=== PATIENT | female | born 1995 | race Caucasian/White ===

== ENCOUNTER → 2019-12-24 10:29 | Outpatient (CLI) | payer OTHER, SELFPAY ==
[2017-12-17 12:10] VITALS: BMI 31.8
[2019-12-24 12:38] LABS: Erythrocyte Sedimentation Rate 3 mm/hr (0-20)
[2019-12-24 13:04] LABS: CRP 6.12 mg/L (0.0-3.0)
[2019-12-31 15:52] LABS: HLA B27 Positive (.)
== END ==
PROVIDERS: PCP Family Medicine; Referring Provider Ophthalmology; Visit Provider Ophthalmology
DX: H20.012 Primary iridocyclitis, left eye (principal)
CPT/HCPCS: 36415; 81374; 85652; 86140

== ENCOUNTER → 2019-12-29 16:53 | Outpatient (CLI) | payer OTHER, SELFPAY ==
[2019-12-29 16:18] VITALS: BMI 32.3
[2019-12-29 17:14] LABS: Basophil# 0.08 X10^3/uL; Basophil% 0.9 % (0-1); Eosinophils% 2.1 % (0-5); Hematocrit 44.4 % (37-47); Hemoglobin 14.1 g/dL (12.0-15.0); Lymphocyte % 26.7 % (19-41); Mean Corp Hgb Conc 31.8 g/dL (32-36); Mean Corpuscular Hgb 29.8 pg (27.0-32.0); Mean Corpuscular Volume 93.9 fL (81-99); Mean Platelet Vol. 11.4 fl (6.2-12.0); Monocyte# 0.59 X10^3/uL; Monocyte% 6.3 % (0-10); NRBC Flagged by Analyzer 0 % (0-5); Neutrophil # 5.97 X10^3/uL (2.7-7.7); Neutrophil % 63.8 % (47-70); Platelet Count 278 K/mm3 (150-450); RBC Distribution Width CV 11.8 % (11.6-14.6); RBC Distribution Width SD 41.1 fl (35.1-43.9); Red Blood Count 4.73 M/mm3 (4.2-5.4); White Blood Count 9.4 K/mm3 (4.4-11.0)
[2019-12-29 17:45] LABS: Anion Gap 3 (5-15); BUN 7 mg/dL (7-18); Calcium,Total 9.3 mg/dL (8.5-10.1); Chloride 111 mmol/L (98-107); Creatinine, Serum 0.64 mg/dL (0.55-1.02); EST Glomerular Filtration Rate 122 mL/min (>60); Est Glom Filt Rate - Afr Amer 147 mL/min (>60); Glucose 85 mg/dL (74-106); Potassium 3.9 mmol/L (3.5-5.1); Sodium Level 143 mmol/L (136-145); Thyroid Stim Hormone (TSH) 2.53 uIU/mL (0.358-3.74)
== END ==
PROVIDERS: PCP Family Medicine; Referring Provider Internal Medicine Cardiovascular Disease; Visit Provider Internal Medicine Cardiovascular Disease
DX: R00.2 Palpitations (principal); R00.0 Tachycardia, unspecified
CPT/HCPCS: 36415; 80048; 84443; 85025

== ENCOUNTER → 2020-02-08 14:20 | Outpatient (CLI) | payer OTHER, SELFPAY ==
[2019-12-29 16:18] VITALS: BMI 32.3
--- NOTE | 2020-02-08 14:23 | RAD_ITS ---
STUDY: X-RAY CHEST REASON FOR EXAM: Female, 24 years old. Spondyloarthropathy TECHNIQUE: Frontal and lateral views of the chest COMPARISON: None. FINDINGS: The lungs are clear. There are no pleural effusions. There is no pneumothorax. The heart is normal in size. The visualized osseous structures are within normal limits. RAD/Chest PA and Lateral IMPRESSION: No acute thoracic pathology. Electronically Signed: Luis Angel Bernard, at 20:17 EDT Tel , Service support ,
--- NOTE | 2020-02-08 14:23 | RAD_ITS ---
STUDY: X-RAY - LUMBAR SPINE REASON FOR EXAM: Female, 24 years old. Spondyloarthropathy TECHNIQUE: 5 view(s) of the lumbar spine were obtained. COMPARISON: None FINDINGS: There is no evidence of fracture or dislocation in the lumbar spine. The vertebral body heights and disc spaces are well-maintained. There are no significant degenerative changes. RAD/L/S Spine Min 4 Views IMPRESSION: Negative radiographs of the lumbar spine. Electronically Signed: Luis Angel Bernard, at 20:20 EDT Tel , Service support ,
--- NOTE | 2020-02-08 14:23 | RAD_ITS ---
STUDY: X-RAY - PELVIS REASON FOR EXAM: Female, 24 years old. Spondyloarthropathy TECHNIQUE: One view of the pelvis was obtained. COMPARISON: None. FINDINGS: There is no evidence of fracture or dislocation. There are no significant degenerative changes. There are no radiodense foreign bodies. RAD/Pelvis 1 or 2 Views IMPRESSION: No fracture or dislocation. Electronically Signed: Luis Angel Bernard, at 20:21 EDT Tel , Service support ,
[2020-02-08 17:35] LABS: Absolute Lymphocyte Count 2.15 X10^3/uL (0.83-4.51); Basophil# 0.09 X10^3/uL; Eosinophil# 0.13 X10^3/uL; Eosinophils% 1.4 % (0-5); Hematocrit 47.3 % (37-47); Hemoglobin 15.7 g/dL (12.0-15.0); Lymphocyte # 2.15 X10^3/ul (4.0); Mean Corp Hgb Conc 33.2 g/dL (32-36); Mean Corpuscular Hgb 31.4 pg (27.0-32.0); Mean Corpuscular Volume 94.6 fL (81-99); Mean Platelet Vol. 11.6 fl (6.2-12.0); Monocyte# 0.58 X10^3/uL; Monocyte% 6.5 % (0-10); NRBC Flagged by Analyzer 0 % (0-5); Neutrophil % 66.9 % (47-70); Platelet Count 241 K/mm3 (150-450); RBC Distribution Width CV 12.1 % (11.6-14.6); RBC Distribution Width SD 42.2 fl (35.1-43.9)
[2020-02-08 18:12] LABS: ALB/GLOB Ratio 1.2 RATIO (0.9-2.4); AST(SGOT) 13 U/L (15-37); Alanine Aminotransfer ALT/SGPT 22 U/L (13-56); Albumin, Serum 4.3 g/dL (3.2-5.0); Alkaline Phosphatase 66 U/L (45-117); Anion Gap 10 (5-15); BUN 11 mg/dL (7-18); BUN/Creat Ratio 15.3 RATIO (10-20); Calcium,Total 9.3 mg/dL (8.5-10.1); Chloride 104 mmol/L (98-107); Creatinine, Serum 0.72 mg/dL (0.55-1.02); EST Glomerular Filtration Rate 106 mL/min (>60); Est Glom Filt Rate - Afr Amer 128 mL/min (>60); Globulin 3.7 g/dL (2.2-4.2); Glucose 87 mg/dL (74-106); Potassium 3.7 mmol/L (3.5-5.1); Rheumatoid Factor < 10.0 IU/mL (<15); Sodium Level 139 mmol/L (136-145)
[2020-02-09 10:21] LABS: Hepatitis B Surface Antibody Non-Reactive; Hepatitis B Surface Antigen Non-Reactive (Nonreactive); Hepatitis C Antibody Non-Reactive (Nonreactive)
[2020-02-10 18:17] LABS: ANTINUCLEAR ANTIBODIES DIRECT Negative (Negative)
[2020-02-11 03:06] LABS: QNTFERON TB Mitogen Value > 10.00 IU/mL (.); QNTFERON TB Nil Value 0.15 IU/mL (.); QNTFERON TB1+ Ag Value 1.53 IU/mL (.); QNTFERON TB2+ Ag Value 1.29 IU/mL (.)
[2020-02-11 21:19] LABS: CCP IgG Antibodies 4 units (0-19); Hepatitis B Core AB IgM Negative (Negative); QNTIFERON TB Positive Criteria Positive (Negative)
== END ==
PROVIDERS: PCP Family Medicine; Referring Provider Internal Medicine Rheumatology; Visit Provider Internal Medicine Rheumatology
DX: M47.899 Other spondylosis, site unspecified (principal); Z86.69 Personal history of other diseases of the nervous system and sense organs
CPT/HCPCS: 36415; 71046; 72110; 72170; 80053; 85025; 86038; 86200; 86431; 86480; 86705; 86706; 86803; 87340

== ENCOUNTER 2020-08-26 20:44 | Emergency (ER) | payer OTHER, SELFPAY ==
[2019-12-29 16:18] VITALS: BMI 32.3
[2020-08-26 20:45] VITALS: BP 142/99; PULSE 115; RESP 16; TEMP 36.6; O2SAT 100; BMI 28.1
--- NOTE | 2020-08-26 21:42 | ED.DCSUM_ITS ---
History of Present Illness Chief Complaint: GI Bleed Informant: Patient Onset: Month(s) Context: Gradual Onset Timing: Intermittent Narrative: Patient is a 25-year-old female with history of ankylosing spondylitis presen ting with bright red blood per rectum. She states has had bleeding for months intermittently but has increased quantity of blood over the last few days. She has had some few small clots. She also had increased discomfort with bowel movements and feels that she has a hemorrhoid in the area. She denies any chest abdominal pain. She states her bowel movements fluctuate between being soft and hard. She denies associated nausea, vomiting, chest pain, abdominal pain, lightheadedness or dizziness. She was concerned because the quantity of blood and was worried she might have serious GI bleed which is why she came to the emergency room. No other complaints at this time. patient is not on any anticoagulation. Past Medical History - Allergies and Home Meds Allergies/Adverse Reactions: Allergies No Known Allergies Allergy (Verified 08/26/20 20:50) Primary Care Physician: Nilay Lazar MD [Primary Care Provider] - Past Medical History: - - Ankylosing spondylitis Surgical History: noncontributory Lives: With Family Smoking Status: Current every day smoker Review of Systems General: Denies: Chills, Fever, Sweats Eyes: Denies: Visual changes - bilaterally, Diplopia ENT: Denies: Rhinorrhea, Sore throat Cardiovascular: Denies: Chest pain, Palpitations Respiratory: Denies: Dyspnea, Cough, Dyspnea on exertion Gastrointestinal: Reports: Hematochezia. Denies: Abdominal pain, Nausea, Vomiting, Diarrhea, Melena Genitourinary: Denies: Dysuria, Hematuria, Frequency Musculoskeletal: Denies: Back pain, Extremity Pain Skin: Denies: Rash, Wounds Neurological: Denies: Headache, Weakness, Numbness Physical Exam Vital Signs/Narrative: Vital Signs Temp Pulse Resp BP Pulse Ox 08/26/20 20:45 97.9 F 115 H 16 142/99 H 100 Inital Vital Signs reviewed: Yes General: Well nourished, Well developed, No Acute Distress Head: Normocephalic, Atraumatic Eyes: Perrl, EOMI. Negative for: Pale conjunctiva ENT: Moist mucous membranes, No rhinorrhea Neck: Supple, Nontender Cardiovascular: Regular rate, Regular rhythm, No murmurs Respiratory: No distress, CTA bilaterally, Chest nontender Abdomen: Soft, Nontender, Nondistended, Normal bowel sounds. Negative for: Guarding, Rebound tenderness Rectal: Tenderness - Tenderness at the noon to 3 o'clock position on internal rectal exam, internal hemorrhoid palpated., - - Dried blood noted around the rectum. Patient has a nonthrombosed hemorrhoid at the 12 o'clock position Back: Nontender, Normal Inspection Extremities: Nontender, No edema Skin: Normal color, No rash Neurological: Alert, Oriented x3, Cranial nerves II-XII grossly intact, Normal Strength, Normal Sensation Psychological: Normal affect, Normal Mood Diagnostic/Tx/Re-eval - Medical Decision Making She is evaluated for bright red blood per rectum. She is well-appearing. She intermittently tachycardic emergency room patient states he has a history of this is actually been referred to cardiology. On exam patient has hemorrhoids which appear to be the source of bleeding. She is not appear anemic and is comfortable treating the hemorrhoids symptomatically. She is prescribed steroids for this. She will be referred to surgery for follow-up as needed. Patient is counseled on signs and symptoms requiring return to the emergency room. Patient verbalizes agreement and understand this plan. Patient discharged home in stable condition. ED Disposition - Plan for ED Patient: Disposition: Home or Assisted Living Diagnosis: Internal bleeding hemorrhoids Instructions: ED Hemorrhoids Prescriptions: Hydrocortisone Acetate [Anusol-Hc] 25 mg RC BID #10 supp.rect Transmission Status: Pending to [id number] Docusate Sodium [Colace] 100 mg PO DAILY #20 cap Transmission Status: Pending to [facility]/pharmacy #[id number] Referrals: Nilay Lazar MD [Primary Care Provider] - Bucky Hernandez MD [STAFF PHYSICIAN] -
== END 2020-08-26 22:25 | disposition home or self-care (01) ==
LOC: ED 22:16
PROVIDERS: Emergency Provider Emergency Medicine; PCP Family Medicine
DX: K64.8 Other hemorrhoids (principal); F17.200 Nicotine dependence, unspecified, uncomplicated
CPT/HCPCS: 99282

== ENCOUNTER 2021-08-01 20:48 | Emergency (ER) | payer MEDICAID, SELFPAY ==
[2021-08-01 20:50] VITALS: BP 141/92; PULSE 115; RESP 16; TEMP 36.1; O2SAT 97; BMI 26.5
--- NOTE | 2021-08-01 22:19 | EDS_ITS ---
HPI History of Present Illness Chief Complaint: Lower Extremity Injury Detail of Chief Complaint: Pain to the right lower extremity and redness to the left lower extremity Informant: patient Narrative Narrative: Patient presents to the emergency department with discomfort to her right ankle that started this morning. Patient then noted some redness to the left lower extremity and some swelling. She denies chest pain or shortness of breath. She has no history of PE or DVT. She denies fevers. Patient feels like the redness is spread up the leg on the left leg since this morning. She denies chills or sweats. She is currently living at the [email or web address] Medical History (Updated 08/01/21 @ 23:[address] Nathalie Flores DO) Diarrhea Nicotine dependence Obesity Home Medications cephalexin 500 mg PO Q6 #40 capsule 08/01/21 [Rx Last Taken Unknown] sulfamethoxazole-trimethoprim 1 tab PO BID #14 tablet 08/01/21 [Rx Last Taken Unknown] Allergy/AdvReac Type Severity Reaction Status Date / Time No Known Allergies Allergy Verified 08/26/20 20:50 Family History Grandmother CAD (coronary artery disease) Aunt CAD (coronary artery disease) Aunt CAD (coronary artery disease) Other Cancer Diabetes Social History (Updated 12/29/19 @ 16:[address] Bryn Huber MD) Smoking Status: Current every day smoker tobacco type: cigarettes Tobacco: How many years used: 5 alcohol intake: never ROS ROS ED Constitutional Constitutional ED: Reports systems reviewed and no addt'l complaints, except as documented; Denies body ache(s), change in weight or chills Eyes Eyes: Denies acute decrease in peripheral vision, change in vision, double vision or loss of vision ENT ENT ED: Reports none; Denies ear pain, lip swelling, loss taste/smell, neck pain, otalgia or sore throat Cardiovascular Cardiovascular: Reports none; Denies abdominal pain, chest pain with activity, leg edema, lightheadedness, palpitations, rapid heart rate or syncope Respiratory/Chest Respiratory/Chest: Reports none; Denies change in mental status, dry cough, dyspnea, hemoptysis, shortness of breath at rest or shortness of breath with exertion Gastrointestinal Gastrointestinal: Reports none; Denies abdominal pain, change in stool character, diarrhea, hematemesis, hematochezia, melena, rectal bleeding or vomiting Genitourinary Genitourinary ED: Reports none; Denies abdominal discomfort, anuria, dysuria, genital pain or polyuria Musculoskeletal Musculoskeletal: Reports none and other Details: Right ankle pain ; Denies arthralgias, back pain, difficulty walking, extremity pain, muscle weakness or myalgias Integumentary Reports none and rash; Denies abscess Neurologic Neurologic: Reports none; Denies abnormal gait, confusion, focal weakness, frequent falls, headache(s), loss of vision, numbness, paresthesias, radicular pain, vertigo or weakness Psychiatric Psychiatric: Reports systems reviewed and no addt'l complaints, except as documented and none; Denies behavioral changes, confusion, difficulty concentrating, hallucinations, suicidal ideation, tactile hallucinations or visual hallucinations Endocrine Endocrinology: Denies none, cold intolerance, excessive sweating, fatigue or heat intolerance Hematologic/Lymphatic Hematologic/Lymphatic: Reports none; Denies anemia, easy bleeding or easy bruising Allergic/Immunologic Allergic/Immunologic ED: Denies as per HPI, none, lip swelling, mouth swelling, throat swelling, tongue swelling or hives EXAM Physical Exam Const Vital Signs: 08/01/21 20:50 Temperature 97 F L Temperature Source Temporal Pulse Rate 115 H Respiratory Rate 16 Blood Pressure 141/92 H Blood Pressure Mean 108 Pulse Ox 97 Oxygen Delivery Method Room Air Positive well nourished and well developed General Appearance ED: well developed and NAD HEENT Reports TM's clear and moist mucous membranes normocephalic and atraumatic; Negative for trauma or tenderness Tympanic Membrane ED: Yes TM's clear Eyes PERRL and EOMs intact bilaterally General Eye ED: Negative for pale conjunctiva or scleral icterus Neck no lymphadenopathy, supple and no JVD General: Negative for tenderness Chest Wall inspection of chest normal and palpation of chest normal Chest: Negative for tenderness Resp normal respiratory effort and clear to auscultation bilaterally Effort and Inspection: Negative for respiratory distress or pain with movement Auscultation: Negative for rhonchi, wheezes or diminished lung sounds Cardio regular rate, regular rhythm, S1 normal heart sound, S2 normal heart sound and no murmurs Peripheral Pulses: pulses 2+ throughout GI normal to inspection, nondistended, normoactive bowel sounds, soft to palpation, non-tender, non-distended and no masses Back/Spine no CVA tenderness and no thoracic nor lumbar tenderness Extremity Extremity Narrative: Evaluation of the right ankle does reveal an area of erythema on the medial aspect of the foot just inferior to the medial malleolus the area of erythema slightly raised and boggy and tender to palpation. Evaluation of the left leg does reveal cellulitic changes from the foot to the thigh. Patient has normal pulses bilaterally. No evidence of trauma. General Extremety ED: Negative for edema General Extremity: Negative for edema Neuro oriented x3, CN's II-XII intact bilaterally, no sensory deficits noted and gait normal Sensorium / Orientation: awake, alert, oriented to person, oriented to place and oriented to time Motor Exam: strength 5/5 throughout and strength abnormal Psych mental status grossly normal Skin no rashes or lesions noted and no wounds MDM MDM MDM Narrative Medical decision making narrative: Venous duplex of both lower extremities obtained was negative for DVT. Patient had an IV line established on arrival and was given Unasyn 3 g IV. Lab work-up was unremarkable. I suspect patient may have a cellulitis of the lower extremities. I cannot rule out potential contact dermatitis however this is less likely. Patient will be treated with Keflex and Bactrim. Patient advised to return if fever, chills, sweats, increased redness or swelling, or condition should worsen anyway. Lab Data Attestation: I reviewed the patient's lab results. Labs: Laboratory Results - last 24 hr 08/01/21 08/01/21 08/01/21 22:29 22:29 22:29 WBC 11.0 RBC 4.48 Hgb 14.2 Hct 40.6 MCV 90.6 MCH 31.7 MCHC 35.0 RDW Std Deviation 41.0 RDW Coeff of Shauna 12.3 Plt Count 232 MPV 11.0 Immature Gran % (Auto) 0.200 Neut % (Auto) 67.0 Lymph % (Auto) 22.7 [place] % (Auto) 8.7 Eos % (Auto) 0.6 Baso % (Auto) 0.8 Absolute Neuts (auto) 7.4 Absolute Lymphs (auto) 2.49 Nucleated RBC % 0 Sodium 141 Potassium 3.8 Chloride 108 H Carbon Dioxide 26.0 Anion Gap 7 BUN 10 Creatinine 0.68 Estim Creat Clear Calc 104.62 Est GFR (MDRD) Af Amer 134 Est GFR (MDRD) Non-Af 111 BUN/Creatinine Ratio 14.6 Glucose 91 Lactic Acid 1.5 Calcium 9.7 Radiography Diagnostic Testing: Clinical Impression(s) from Imaging Studies Venous Duplex 08/01/21 22:20 IMPRESSION: Normal bilateral lower extremity duplex venous ultrasound. Electronically Signed: Jimbo Sparrow MD at 23:07 EST Tel , Service support , Discharge Plan Triage Chief Complaint: Lower Extremity Injury ED Provider: Nathalie Flores Dx/Rx/DC Orders Clinical Impression: Bilateral cellulitis of lower leg Instructions: ED Cellulitis Prescriptions: New sulfamethoxazole-trimethoprim [sulfamethoxazole-trimethoprim] 1 TABLET tablet 1 tab PO BID Qty: 14 RF: 0 cephalexin [cephalexin] 500 MG capsule 500 mg PO Q6 Qty: 40 RF: 0 Primary Care Provider: Nilay Lazar Referrals: Luis Kohli DO [STAFF PHYSICIAN] - 3-5 Days Nilay Lazar MD [Primary Care Provider] - Disposition Disposition: Home, Self Care
--- NOTE | 2021-08-01 22:20 | US_ITS ---
EXAM: US DUPLEX BILATERAL LOWER EXTREMITIES VEINS CLINICAL INDICATION: BILTAL LOWER LEG SWELLING- MEDIAL ANKLE REDNESS BILAT- RT ANKLE PAIN / REDNESS LT CALF- JUST TODAY TECHNIQUE: Real-time duplex ultrasound scan of the bilateral lower extremity veins integrating B-mode two-dimensional vascular structure, Doppler spectral analysis, color flow Doppler imaging and compression. This report was created using [employer] report generation technology. COMPARISON: None. FINDINGS: RIGHT DEEP VEINS: Unremarkable. No DVT in the right common femoral, femoral, proximal deep femoral or popliteal veins. The veins demonstrate normal color flow, are normally compressible, with normal phasic flow and/or augmentation response. RIGHT SUPERFICIAL VEINS: Unremarkable. No thrombus in the visualized right great saphenous vein. LEFT DEEP VEINS: Unremarkable. No DVT in the left common femoral, femoral, proximal deep femoral or popliteal veins. The veins demonstrate normal color flow, are normally compressible, with normal phasic flow and/or augmentation response. LEFT SUPERFICIAL VEINS: Unremarkable. No thrombus in the visualized left great saphenous vein. SOFT TISSUES: No acute findings. No popliteal cyst. US/Venous Duplex Imag/Xander Extrem IMPRESSION: Normal bilateral lower extremity duplex venous ultrasound. Electronically Signed: Jimbo Sparrow MD at 23:07 EST Tel , Service support ,
[2021-08-01 22:42] LABS: Absolute Lymphocyte Count 2.49 X10^3/uL (0.83-4.51); Absolute Neutrophil Count 7.4 X10^3/uL (2.0-7.7); Basophil# 0.09 X10^3/uL; Basophil% 0.8 % (0-1); Eosinophil# 0.07 X10^3/uL; Eosinophils% 0.6 % (0-5); Hematocrit 40.6 % (37-47); Hemoglobin 14.2 g/dL (12.0-15.0); Lymphocyte # 2.49 X10^3/ul (0.83-4.51); Lymphocyte % 22.7 % (19-41); Mean Corpuscular Hgb 31.7 pg (27.0-32.0); Mean Corpuscular Volume 90.6 fL (81-99); Monocyte# 0.96 X10^3/uL; Monocyte% 8.7 % (0-10); NRBC Flagged by Analyzer 0 % (0-5); Neutrophil # 7.35 X10^3/uL (2.7-7.7); Platelet Count 232 K/mm3 (150-450); RBC Distribution Width CV 12.3 % (11.6-14.6); Red Blood Count 4.48 M/mm3 (4.2-5.4)
[2021-08-01 22:56] LABS: Anion Gap 7 (5-15); BUN 10 mg/dL (7-18); BUN/Creat Ratio 14.6 RATIO (10-20); Calcium,Total 9.7 mg/dL (8.5-10.1); Chloride 108 mmol/L (98-107); Creatinine, Serum 0.68 mg/dL (0.55-1.02); EST Glomerular Filtration Rate 111 mL/min (>60); Est Glom Filt Rate - Afr Amer 134 mL/min (>60); Estimated Creatinine Clearance 104.62 ml/min; Glucose 91 mg/dL (74-106); Potassium 3.8 mmol/L (3.5-5.1); Sodium Level 141 mmol/L (136-145)
[2021-08-01 23:24] LABS: Lactic Acid 1.5 mmol/L (0.4-1.9)
[2021-08-01 23:55] VITALS: PULSE 69; RESP 16; O2SAT 97
== END 2021-08-02 00:25 | disposition home or self-care (01) ==
PROVIDERS: Emergency Provider Emergency Medicine; PCP Family Medicine
DX: L03.115 Cellulitis of right lower limb (principal); L03.116 Cellulitis of left lower limb; E66.9 Obesity, unspecified; F17.210 Nicotine dependence, cigarettes, uncomplicated
CPT/HCPCS: 80048; 83605; 85025; 93970; 96365; 99283; J7050; A4216; J0295

== ENCOUNTER 2022-01-25 16:21 | Emergency (ER) | payer SELFPAY ==
[2022-01-25 16:23] VITALS: BP 136/97; PULSE 122; RESP 12; TEMP 36.4; O2SAT 98; BMI 31.4
--- NOTE | 2022-01-25 16:37 | EX.ED.DYSGE1 ---
HPI History of Present Illness Chief Complaint: Abscess Narrative Narrative: Patient who denies significant past medical history presents with abscess on her left lower extremity that has worsened over the last 1.5 weeks. She states that she thought she had a spider bite on her left proximal medial calf. It was a small red dot but has gotten worse over time. Over the last 2 days it has become more painful and swollen. Additionally, she states yesterday she started having clear to bloody drainage. She denies any fevers or chills. No nausea or vomiting, no other symptoms. She has another spot on her left buttocks that is starting to become more red. She also has 1 on her right anterior calf. She does admit to shaving her legs recently. She presents because of the pain, swelling, and redness mainly of her left lower extremity. She states that she dee pen sanchez around it over the last week and a half in the area is becoming larger. [facility] Medical History Diarrhea Nicotine dependence Obesity Home Medications sulfamethoxazole 800 mg-trimethoprim 160 mg tablet (Bactrim DS) 1 tab PO BID #20 tabs 01/25/22 [Rx Last Taken Unknown] Allergy/AdvReac Type Severity Reaction Status Date / Time No Known Allergies Allergy Verified 01/25/22 16:23 Family History Grandmother CAD (coronary artery disease) Aunt CAD (coronary artery disease) Aunt CAD (coronary artery disease) Other Cancer Diabetes Social History Smoking Status: Current every day smoker tobacco type: cigarettes Tobacco: How many years used: 5 alcohol intake: never ROS ROS ED ROS Narrative Constitutional: No fever, no chills. HEENT: No sore throat. No neck pain. No loss of vision. No rhinorrhea. Cardiovascular: No chest pain. No palpitations. No pedal edema. Respiratory: No cough, no shortness of breath. Abdominal: No abdominal pain. No nausea. No vomiting. Genitourinary: No dysuria. No hematuria. Musculoskeletal: No myalgias. No arthralgias. Neurologic: No headaches. No dizziness. No lightheadedness. Skin: No rash. Positive abscess left lower extremity, proximal medial calf, other area on right anterior tibia and left upper buttocks. Increased redness. Painful to touch on left lower extremity. Psychiatric: No depression. No anxiety. EXAM Physical Exam Narrative Exam Narrative: Afebrile. Vital signs noted. Nontoxic-appearing. HEENT: Normocephalic. Atraumatic. PERRL, EOMI. Neck soft and supple. No point tenderness or step off. Cardiovascular: Regular rate and rhythm. No murmurs, rubs, or gallops appreciated. Respiratory: No tachypnea. Lungs clear to auscultation bilaterally. Gastrointestinal: Abdomen soft, nontender, with normoactive bowel sounds. No rebound or guarding. Neurological: Awake. Alert. Nonfocal, nonlateralizing. Skin: No rash. Positive area of induration with central eschar, area of drainage. Mild surrounding erythema extending at least 30 cm. Additional area on left buttocks and right anterior tibia consistent more with not drainable abscess/folliculitis. Musculoskeletal: No pedal edema. Full range of motion extremities. Const Vital Signs: 01/25/22 16:23 01/25/22 16:50 01/25/22 16:51 Temperature 97.5 F L 97.5 F L Temperature Source Temporal Temporal Pulse Rate 122 H 122 H 119 H Respiratory Rate 12 12 16 Blood Pressure 136/97 H 136/97 H 127/81 H Blood Pressure Mean 110 96 Pulse Ox 98 98 98 Oxygen Delivery Method Room Air Room Air Room Air MDM MDM MDM Narrative Medical decision making narrative: Although the area on her left lower extremity is already draining, I do feel that opening up and extending the area of this abscess would be of benefit to her. Additionally, I do feel that she needs antibiotics for her cellulitis. She will place warm compresses on the other areas. She was given her first dose of Bactrim DS here in the emergency department and prescription written for the next 10 days. However, upon further discussion, she is concerned about cost. She states that currently she does not have a place to stay. She does have an opening already of the abscess. She was told that there could be reaccumulation of fluid, continued, worsening infection acknowledges an understanding, but she is declining incision and drainage at this time. Additionally, I stressed the importance of follow-up with her primary care provider versus returning to the emergency department. I wrote her prescription for the antibiotics. She will apply warm compresses to the area. She can follow-up with the [facility]. Return instructions reviewed. Disposition is discharged home in stable condition. Discharge Plan Triage Chief Complaint: Abscess ED Provider: Jaun Hathaway Dx/Rx/DC Orders Clinical Impression: Abscess, Cellulitis, Folliculitis Instructions: ED Abscess Incision And Drainage, ED Cellulitis, ED Folliculitis Prescriptions: New sulfamethoxazole-trimethoprim [Bactrim DS] 800-160 mg tablet 1 tab PO BID Qty: 20 0RF Primary Care Provider: Care Physician,No Primary Referrals: Nilay Lazar MD [NON-STAFF] - As soon as possible [facility] [NON-STAFF] - 3-5 Days if not improving Disposition Disposition: Home, Self Care Discharge Date/Time: 01/25/22 17:06
[2022-01-25 16:50] VITALS: BP 136/97; PULSE 122; RESP 12; TEMP 36.4; O2SAT 98
[2022-01-25] MEDS: Ibuprofen 600 MG Tablet PO (16:50)
[2022-01-25] MEDS: Smz/Tmp Ds Tablet 1 TABLET PO (16:50)
[2022-01-25 16:51] VITALS: BP 127/81; PULSE 119; RESP 16; O2SAT 98
== END 2022-01-25 17:06 | disposition home or self-care (01) ==
PROVIDERS: Emergency Provider Emergency Medicine; Visit Provider Emergency Medicine
DX: L02.416 Cutaneous abscess of left lower limb (principal); L02.31 Cutaneous abscess of buttock; L03.90 Cellulitis, unspecified; L73.9 Follicular disorder, unspecified; E66.9 Obesity, unspecified; F17.210 Nicotine dependence, cigarettes, uncomplicated
CPT/HCPCS: 99282

== ENCOUNTER 2022-06-19 22:55 | Emergency (ER) | payer MEDICAID, SELFPAY ==
[2022-06-19 22:56] VITALS: BP 161/102; PULSE 99; RESP 16; TEMP 36.4; O2SAT 98; BMI 28.2
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
[2022-06-19] MEDS: Lidocaine 1% (20 ml mdv) 20 ML Vial INFILT (23:42)
[2022-06-19] MEDS: Smz/Tmp Ds Tablet 1 TABLET PO (23:42)
--- NOTE | 2022-06-20 01:00 | ED.RN ---
this RN enters room to discharge patient, patient noted to be red and itching. Pt denies SOB or chest pain. Pt states started about [address] Garcia made aware, waiting for orders.
[2022-06-20] MEDS: predniSONE 20 MG Tablet 60 MG PO (01:13)
[2022-06-20] MEDS: DiphenhydrAMINE 25 MG Capsule 50 MG PO (01:13)
== END 2022-06-20 02:59 | disposition home or self-care (01) ==
PROVIDERS: Emergency Provider Emergency Medicine; Visit Provider Emergency Medicine
DX: L02.411 Cutaneous abscess of right axilla (principal); H20.00 Unspecified acute and subacute iridocyclitis; H11.32 Conjunctival hemorrhage, left eye; B34.9 Viral infection, unspecified; L50.9 Urticaria, unspecified; F17.210 Nicotine dependence, cigarettes, uncomplicated
CPT/HCPCS: 10060; 99282

== ENCOUNTER → 2022-06-28 | Outpatient (CLI) | payer MEDICAID, SELFPAY ==
[2022-06-28 14:59] LABS: Hemoglobin 13.6 g/dL (12.0-15.0); Mean Corp Hgb Conc 32.4 g/dL (32-36); Mean Corpuscular Hgb 30.7 pg (27.0-32.0); Mean Corpuscular Volume 94.8 fL (81-99); Platelet Count 283 K/mm3 (150-450); RBC Distribution Width CV 12.6 % (11.6-14.6); RBC Distribution Width SD 44.3 fl (35.1-43.9); Red Blood Count 4.43 M/mm3 (4.2-5.4); White Blood Count 9.7 K/mm3 (4.4-11.0)
[2022-06-28 15:44] LABS: AST(SGOT) 18 U/L (15-37); Alanine Aminotransfer ALT/SGPT 31 U/L (13-56); Albumin, Serum 3.6 g/dL (3.2-5.0); Alkaline Phosphatase 72 U/L (45-117); Anion Gap 3 (5-15); BUN 19 mg/dL (7-18); BUN/Creat Ratio 30.8 RATIO (10-20); Calcium,Total 8.9 mg/dL (8.5-10.1); Chloride 108 mmol/L (98-107); Creatinine, Serum 0.62 mg/dL (0.55-1.02); EST Glomerular Filtration Rate 124 mL/min (>60); Est Glom Filt Rate - Afr Amer 150 mL/min (>60); Globulin 3.7 g/dL (2.2-4.2); Glucose 92 mg/dL (74-106); Magnesium 2.2 mg/dL (1.6-2.6); Potassium 4.1 mmol/L (3.5-5.1); Protein, Total 7.3 g/dL (6.4-8.2); Sodium Level 140 mmol/L (136-145); Thyroid Stim Hormone (TSH) 1.81 uIU/mL (0.358-3.74)
== END | disposition home or self-care (01) ==
LOC: LAB 14:06
PROVIDERS: PCP Nurse Practitioner Family; Visit Provider Nurse Practitioner Family
DX: R00.0 Tachycardia, unspecified (principal)
CPT/HCPCS: 36415; 80053; 82306; 83735; 84443; 85027

== ENCOUNTER → 2022-07-12 | Outpatient (CLI) | payer MEDICAID, SELFPAY | END | disposition home or self-care (01) | LOC: PSN 11:57 | PROVIDERS: PCP Nurse Practitioner Family; Visit Provider Nurse Practitioner Family | DX: R00.0 Tachycardia, unspecified (principal) | CPT/HCPCS: 93225; 93226 ==

== ENCOUNTER 2022-08-15 12:48 | Emergency (ER) | payer MEDICAID, SELFPAY ==
[2022-08-15 12:49] VITALS: BP 123/81; PULSE 124; RESP 16; TEMP 37.7; O2SAT 99; BMI 30.8
[2022-08-15 12:52] VITALS: BP 127/67; PULSE 122; RESP 18; TEMP 37.3; O2SAT 98
--- NOTE | 2022-08-15 13:02 | EX.ED.DYSGE1 ---
HPI History of Present Illness Chief Complaint: Shortness of Breath Detail of Chief Complaint: Respiratory and GI viral symptoms Informant: patient Onset/Context/Timing Onset: Yesterday Context: Sudden Onset Timing: Continuous and Waxes and wanes Quality: Congestion, sore throat, nonproductive cough, left-sided abdominal pain and Location: Predominately left side Current Severity: Mild Maximum Severity: Moderate Worsened by: Breathing Relieved by: Nothing Associated Symptoms Associated Symptoms: PerNarrative Narrative Narrative: Patient is a 27-year-old woman who presents with myalgias, arthralgias, subjective fever, headache, congestion, sore throat, nonproductive cough, left-sided abdominal pain with pleuritic left-sided chest pain that started yesterday. She does report urinary symptoms. She denies joint swelling. She has no contraindication to NSAIDs. Patient states she was diagnosed with influenza type a in the fall and has had COVID in the past. She has not been vaccinated for either. Patient denies vaginal bleeding or discharge. Patient states she is not sexually active. She has no signs or symptoms of . She has not had a menstrual period in months. Prior similar symptoms: Yes Recent Illness/Hospitalization: No PFSH PFS Medical History Diarrhea Influenza A Nicotine dependence Obesity Home Medications cholecalciferol (vitamin D3) 25 mcg (1,000 unit) tablet 25 mcg PO DAILY 08/15/22 [History Last Taken Unknown] metoprolol succinate 25 mg tablet,extended release 24 hr 25 mg PO DAILY 08/15/22 [History Last Taken Unknown] nitrofurantoin monohydrate/macrocrystals 100 mg capsule 100 mg PO Q12 #10 CAPSULES 08/15/22 [Rx Last Taken Unknown] Allergy/AdvReac Type Severity Reaction Status Date / Time sulfamethoxazole Allergy Hives Verified 08/15/22 12:49 [From Bactrim] trimethoprim [From Bactrim] Allergy Hives Verified 08/15/22 12:49 Family History Grandmother CAD (coronary artery disease) Aunt CAD (coronary artery disease) Aunt CAD (coronary artery disease) Other Cancer Diabetes Social History (Updated 08/15/22 @ 13:[address] Anish Ny MD) household members: none Smoking Status: Current every day smoker tobacco type: cigarettes Tobacco: How many years used: 5 alcohol intake: never ROS ROS ED Constitutional Constitutional ED: Reports chills, fever(s), subjective and sweats; Denies weight loss Eyes Eyes: Denies blurry vision, change in vision or diplopia ENT ENT ED: Reports rhinorrhea and sore throat; Denies ear pain Cardiovascular Cardiovascular: Reports chest pain; Denies orthopnea, palpitations, paroxysmal nocturnal dyspnea or racing heartbeat Respiratory/Chest Respiratory/Chest: Reports cough; Denies dyspnea, dyspnea on exertion, orthopnea, paroxysmal nocturnal dyspnea or sputum Gastrointestinal Gastrointestinal: Reports abdominal pain and nausea; Denies constipation, diarrhea, melena or vomiting Genitourinary Genitourinary ED: Reports dysuria, hematuria and urinary frequency Musculoskeletal Musculoskeletal: Reports arthralgias and myalgias; Denies back pain or neck pain Integumentary Denies Abrasions or rash Neurologic Neurologic: Reports headache(s); Denies paresthesias or weakness Psychiatric Psychiatric: Reports anxiety; Denies depression Hematologic/Lymphatic Hematologic/Lymphatic: Reports systems reviewed and no addt'l complaints, except as documented and none EXAM Physical Exam Const Vital Signs: 08/15/22 12:49 08/15/22 12:57 08/15/22 12:52 Temperature 99.9 F H 99.1 F Temperature Source Temporal Temporal Pulse Rate 124 H 122 H Respiratory Rate 16 18 Respiratory Effort Normal Non-Labored Respiratory Depth Normal Respiratory Pattern Normal Blood Pressure 123/81 H 127/67 H Blood Pressure Mean 95 87 Pulse Ox 99 98 Oxygen Delivery Method Room Air Room Air Room Air 08/15/22 14:11 Temperature 98.0 F Temperature Source Oral Pulse Rate 72 Respiratory Rate 16 Respiratory Effort Respiratory Depth Respiratory Pattern Blood Pressure 129/81 H Blood Pressure Mean 97 Pulse Ox 97 Oxygen Delivery Method Room Air Positive well nourished and well developed Constitutional Narrative: Patient appears ill but not toxic. General Appearance ED: well developed and NAD; Negative for cyanotic, diaphoretic or pallor HEENT Reports moist mucous membranes HEENT Narrative: Ears normal. TMs normal. Nares patent with slight clear drainage. Posterior pharynx no erythema exudate. Uvula midline. No dysphonia. Eyes PERRL and EOMs intact bilaterally Eyes Narrative: Conjunctive is pink. General Eye ED: Negative for pale conjunctiva or scleral icterus Neck no lymphadenopathy, supple and no JVD Neck Narrative: Trachea is midline. Resp normal respiratory effort and clear to auscultation bilaterally Cardio regular rhythm, S1 normal heart sound, S2 normal heart sound and no murmurs Rate: tachycardic GI normal to inspection, nondistended, normoactive bowel sounds, non-tender, non-distended and no masses; Negative for hepatosplenomegaly Inspection: abdominal distention Auscultation: hypoactive bowel sounds Back/Spine no CVA tenderness Cervical Spine: Negative for cervical spine tenderness Thoracic Spine / Upper Back: Negative for thoracic spinal tenderness Extremity normal to inspection Extremity Narrative: There is no joint tenderness or swelling noted Neuro oriented x3, CN's II-XII intact bilaterally and no sensory deficits noted Sensorium / Orientation: alert Psych Mood & Affect: anxious and tearful Skin no rashes or lesions noted, no wounds and skin turgor normal General Skin Exam: elasticity normal; Negative for jaundice or pallor MDM MDM MDM Narrative Medical decision making narrative: Patient presents with viral-like symptoms. We will treat her pleuritic chest pain with ibuprofen since she has no contraindication. Will test for COVID and influenza. Since patient is not tachypneic, hypoxic and there are no abnormal auscultatory findings chest x-ray was not obtained. Suspect patient has one of the common viral infections typical for this time of year. We will specifically test for COVID and influenza. Repeat vitals have improved. Lab Data Attestation: I reviewed the patient's lab results. Lab results narrative: UA is consistent with urinary tract infection. Since patient's not had a recent urinary tract infection we will treat with Macrobid. Culture was not sent. Rapid antigen for COVID and influenza are negative. Suspect patient's symptoms are due to viral illness. She also has evidence of urinary tract infection. Labs: Laboratory Results - last 24 hr 08/15/22 13:13 Urine Color Yellow Urine Clarity Sl. Cloudy Urine pH 7.0 Ur Specific [place] 1.010 Urine Protein 30 H Urine Glucose (UA) Normal Urine Ketones Negative Urine Occult Blood 250 H Urine Nitrite Positive H Urine Bilirubin Negative Urine Urobilinogen Normal Ur Leukocyte Esterase 500 H Urine RBC 0-5 SEEN Urine WBC 25-50 SEEN Ur Squamous Epith Cells 0-5 SEEN Urine Bacteria 1+ Urine Mucus 0 SEEN Discharge Plan Triage Chief Complaint: Shortness of Breath ED Provider: Anish Ny Dx/Rx/DC Orders Clinical Impression: Systemic viral illness, Acute cystitis, Pleurisy, Sinus tachycardia Instructions: ED Pleurisy, ED Cystitis Female Adult, ED Viral Syndrome (Adult) Prescriptions: New nitrofurantoin monohyd/m-cryst [nitrofurantoin monohyd/m-cryst] 100 mg capsule 100 mg PO Q12 Qty: 10 0RF No Action metoprolol succinate 25 mg tablet extended release 24 hr 25 mg PO DAILY Label Comments: Take one tablet by mouth daily. cholecalciferol (vitamin D3) 25 mcg (1,000 unit) tablet 25 mcg PO DAILY Label Comments: TAKE 1 TABLET BY MOUTH EVERY DAY Primary Care Provider: Indy Nxi NP Referrals: Indy Nix NP, PRODUCT LINE MANAGER-C [Primary Care Provider] - 3-5 Days if not improving Disposition Disposition: Home, Self Care
[2022-08-15 13:21] LABS: Mucous, Urine 0 SEEN /hpf (<or=2+)
[2022-08-15 13:24] LABS: Color, Urine Yellow (Yellow); Glucose, Dipstick Normal (Normal); Ketone-Dipstick Negative (Negative); Leukocyte Esterase-Dipstick 500 /ul (Negative); Nitrite-Dipstick Positive (Negative); Occult Blood-Urine 250 /ul (Negative); Protein-Dipstick 30 mg/dl (Negative); Urine Bilirubin Dipstick Negative (Negative); Urine Clarity Sl. Cloudy (Clear); Urine Urobilinogen Normal (Normal)
[2022-08-15] MEDS: Ibuprofen 400 MG Tablet 800 MG PO (13:26)
[2022-08-15 13:32] LABS: Red Blood Cells-Urine 0-5 SEEN /hpf (0-5); Squamous Epithelial Cells - UA 0-5 SEEN /hpf (5-10); White Blood Cells 25-50 SEEN /hpf (0-5)
[2022-08-15 13:33] LABS: Bacteria 1+ /hpf (None Seen)
[2022-08-15] MEDS: Nitrofurantoin Macrocrystals 100 MG Capsule PO (13:50)
[2022-08-15 14:11] VITALS: BP 129/81; PULSE 72; RESP 16; TEMP 36.7; O2SAT 97
[2022-08-15 14:52] VITALS: BP 122/68; PULSE 74; RESP 16; O2SAT 98
== END 2022-08-15 14:53 | disposition home or self-care (01) ==
PROVIDERS: Emergency Provider Emergency Medicine; PCP Nurse Practitioner Family; Visit Provider Emergency Medicine
DX: R00.0 Tachycardia, unspecified (principal); R09.1 Pleurisy; B34.9 Viral infection, unspecified; N30.00 Acute cystitis without hematuria; R06.02 Shortness of breath; R07.9 Chest pain, unspecified; R30.0 Dysuria; R31.9 Hematuria, unspecified; R35.0 Frequency of micturition; F41.9 Anxiety disorder, unspecified; Z20.822 Contact with and (suspected) exposure to COVID-19; Z28.310 Unvaccinated for COVID-19
CPT/HCPCS: 81001; 87428; 99283

== ENCOUNTER 2022-10-30 03:18 | Emergency (ER) | payer MEDICAID, SELFPAY ==
[2022-10-30 03:19] VITALS: O2SAT 99
[2022-10-30 03:20] VITALS: BP 148/92; PULSE 120; RESP 17; TEMP 36.8; O2SAT 99; BMI 29.8
--- NOTE | 2022-10-30 03:26 | EX.ED.VIS.UR ---
HPI HPI - URI History of Present Illness Chief Complaint: Foreign Body Informant: patient Onset/Context/Timing Onset: Weeks (1.5) Context: Gradual Onset Timing: Continuous Quality: Dull Location: Sublingual area Worsened by: - (Palpation) Relieved by: - (Nothing) Associated Symptoms Associated Symptoms: Negative for Nasal Congestion, Headache, Sinus Pressure, Myalgias, Nausea, Vomiting, Diarrhea, Shortness of Breath, Chest Pain, Nonproductive cough, Hemoptysis or Productive Cough Narrative Narrative: Patient presents with swelling to her anterior neck that has been constant for the past 1-1/2 weeks. Patient states it is gradually gotten worse. Patient describes the pain as dull. Patient states the pain is over the anterior neck and sublingual area. Patient states it is worse whenever she bumps it. Patient states nothing seems to help with it. Patient denies any fevers or chills. Patient states it began shortly after she popped a pimple on her lower lip area. Patient denies any difficulty breathing or difficulty swallowing. ROS ROS ED Constitutional Constitutional ED: Denies chills or fever(s) Eyes Eyes: Denies blurry vision or change in vision ENT ENT ED: Reports sore throat; Denies rhinorrhea Cardiovascular Cardiovascular: Denies chest pain or palpitations Respiratory/Chest Respiratory/Chest: Denies cough or dyspnea Gastrointestinal Gastrointestinal: Denies nausea or vomiting Genitourinary Genitourinary ED: Denies dysuria or hematuria Musculoskeletal Musculoskeletal: Denies back pain or neck pain Integumentary Denies abscess or rash Neurologic Neurologic: Denies headache(s) or weakness Allergic/Immunologic Allergic/Immunologic ED: Denies mouth swelling or urticaria [facility] Medical History Diarrhea Influenza A Nicotine dependence Obesity Tachycardia Home Medications cholecalciferol (vitamin D3) 25 mcg (1,000 unit) tablet 25 mcg PO DAILY 08/15/22 [History Last Taken Unknown] metoprolol succinate 25 mg tablet,extended release 24 hr 25 mg PO DAILY 08/15/22 [History Last Taken Unknown] nitrofurantoin monohydrate/macrocrystals 100 mg capsule 100 mg PO Q12 #10 CAPSULES 08/15/22 [Rx Last Taken Unknown] amoxicillin 875 mg-potassium clavulanate 125 mg tablet 875 mg PO Q12H #20 TABLETS 10/30/22 [Rx Last Taken Unknown] Allergy/AdvReac Type Severity Reaction Status Date / Time sulfamethoxazole Allergy Hives Verified 08/15/22 12:49 [From Bactrim] trimethoprim [From Bactrim] Allergy Hives Verified 08/15/22 12:49 Family History Grandmother CAD (coronary artery disease) Aunt CAD (coronary artery disease) Aunt CAD (coronary artery disease) Other Cancer Diabetes Surgical History no surgical history no surgical history Social History household members: none Smoking Status: Current every day smoker tobacco type: cigarettes Tobacco: How many years used: 5 alcohol intake: never EXAM Physical Exam Const Vital Signs: 10/30/22 03:19 10/30/22 03:20 10/30/22 03:23 Temperature 98.2 F Temperature Source Temporal Pulse Rate 120 H Respiratory Rate 17 Respiratory Effort Normal Respiratory Pattern Normal Blood Pressure 148/92 H Blood Pressure Mean 110 Pulse Ox 99 99 Oxygen Delivery Method Room Air Room Air Positive well nourished and well developed General Appearance ED: well developed and NAD HEENT Reports moist mucous membranes Throat: posterior oropharynx normal Eyes PERRL and EOMs intact bilaterally Neck supple, no meningeal signs and no JVD Neck Narrative: There is some mild sublingual edema. There is some sublingual lymphadenopathy noted. There are some mild erythema. There is no induration. There is no fullness noted. There is no fluctuance. Airway is patent. Resp normal respiratory effort and clear to auscultation bilaterally Cardio Rate: regular rate Rhythm: regular rhythm Neuro oriented x3, CN's II-XII intact bilaterally and no sensory deficits noted Sensorium / Orientation: alert Motor Exam: strength 5/5 throughout Psych mental status grossly normal MDM MDM MDM Narrative Medical decision making narrative: Differential diagnosis includes subungual lymphadenopathy, pharyngitis, and Wilber's angina. CT scan of the soft tissue neck will be obtained to assess for abscess and Wilber's angina. CBC will be obtained to assess for leukocytosis and anemia. Basic metabolic profile will be obtained to assess for electrolyte abnormality and renal function. Lab Data Attestation: I reviewed the patient's lab results. Lab results narrative: CBC was reviewed and was within normal limits. Basic metabolic profile was reviewed. There is a mild hypokalemia of 3.3. Labs: Laboratory Results - last 24 hr 10/30/22 10/30/22 03:44 03:44 WBC 10.3 RBC 4.37 Hgb 13.4 Hct 39.8 MCV 91.1 MCH 30.7 MCHC 33.7 RDW Std Deviation 45.2 H RDW Coeff of Shauna 13.4 Plt Count 233 MPV 11.3 Immature Gran % (Auto) 0.400 Neut % (Auto) 59.0 Lymph % (Auto) 30.0 [place] % (Auto) 8.6 Eos % (Auto) 1.0 Baso % (Auto) 1.0 Absolute Neuts (auto) 6.1 Absolute Lymphs (auto) 3.10 Nucleated RBC % 0 Sodium 140 Potassium 3.3 L Chloride 109 H Carbon Dioxide 24.0 Anion Gap 7 BUN 13 Creatinine 0.69 Estim Creat Clear Calc 102.21 Est GFR (MDRD) Af Amer 131 Est GFR (MDRD) Non-Af 108 BUN/Creatinine Ratio 18.7 Glucose 102 Calcium 8.9 Radiography Diagnostic Testing: Clinical Impression(s) from Imaging Studies Soft Tissue Neck CT 10/30/22 03:33 IMPRESSION: Mild submandibular and submental adenopathy. No organized abscess collection identified. Electronically Signed: Luis Eagle MD at 5:05 EDT , CT scan of the soft tissue neck was obtained. There is some mild submandibular and submental lymphadenopathy. There is no abscess noted. There is no evidence of Wilber's angina. This was interpreted by the radiologist and was also independently reviewed by myself. Treatment and Re-Evaluation Narrative: Smoking cessation was discussed. Patient was given a dose of Unasyn here. Patient was advised of her findings. Patient was given a prescription for Augmentin. Patient was instructed to follow-up with her primary care physician in 5 to 7 days. Patient understood and was agreeable with the plan. All questions were answered. Discharge Plan Triage Chief Complaint: Foreign Body ED Provider: Mauro Castro Dx/Rx/DC Orders Clinical Impression: Submental lymphadenitis, Nicotine dependence Instructions: ED ADENITIS Cervical Abx Tx, ED How to Quit Smoking Prescriptions: New amoxicillin-pot clavulanate [amoxicillin-pot clavulanate] 875-125 mg tablet 875 mg PO Q12H Qty: 20 0RF No Action metoprolol succinate 25 mg tablet extended release 24 hr 25 mg PO DAILY Label Comments: Take one tablet by mouth daily. cholecalciferol (vitamin D3) 25 mcg (1,000 unit) tablet 25 mcg PO DAILY Label Comments: TAKE 1 TABLET BY MOUTH EVERY DAY nitrofurantoin monohyd/m-cryst [nitrofurantoin monohyd/m-cryst] 100 mg capsule 100 mg PO Q12 Qty: 10 0RF Primary Care Provider: Indy Nix NP Referrals: Indy Nix NP, [employer] TRAVEL COUNSELOR-C [Primary Care Provider] - 5-7 Days Disposition Disposition: Home, Self Care
--- NOTE | 2022-10-30 03:33 | CT_ITS ---
INDICATION: Sublingual edema. Soft tissue swelling under chin and anterior neck. EXAMINATION: CT NECK WITH CONTRAST - CT Soft Tissue Neck W/ Contrast Injection TECHNIQUE: Helically acquired images were obtained of the neck following IV contrast. A radiation dose optimization technique was used for this scan. IV Contrast dosage and agent: 100 cc [id number] COMPARISON: None. FINDINGS: SOFT TISSUES: Mild submental soft tissue swelling with slightly enlarged submental and submandibular lymph nodes measuring up to 10 mm short axis diameter. No organized abscess demonstrated. Labial and lingual metallic piercings noted. NASOPHARYNX: Unremarkable. SUPRAHYOID NECK: Unremarkable oropharynx, oral cavity, parapharyngeal space, and retropharyngeal space. INFRAHYOID NECK: Unremarkable larynx, hypopharynx, and supraglottis. Airway is patent. THYROID: No focal lesions. SALIVARY GLANDS: Symmetric bilateral submandibular glands and bilateral parotid glands. LYMPH NODES: Slightly enlarged submental and submandibular lymph nodes again noted. VASCULAR STRUCTURES: Unremarkable. VISUALIZED PORTIONS OF THE ORBITS, PARANASAL SINUSES, MASTOID AIR CELLS AND SKULL BASE: Right maxillary sinus mucosal thickening. Mastoid air cells are well-pneumatized. Unremarkable orbits and globes. BONES: Unremarkable. THORACIC INLET: Clear lung apices. CT/Soft Tissue Neck WITH Contrast IMPRESSION: Mild submandibular and submental adenopathy. No organized abscess collection identified. Electronically Signed: Luis Eagle MD at 5:05 EDT ,
[2022-10-30 03:49] LABS: Absolute Neutrophil Count 6.1 X10^3/uL (2.0-7.7); Hematocrit 39.8 % (37-47); Hemoglobin 13.4 g/dL (12.0-15.0); Mean Corp Hgb Conc 33.7 g/dL (32-36); Mean Corpuscular Hgb 30.7 pg (27.0-32.0); Mean Corpuscular Volume 91.1 fL (81-99); Mean Platelet Vol. 11.3 fl (6.2-12.0); Monocyte# 0.89 X10^3/uL; Monocyte% 8.6 % (0-10); NRBC Flagged by Analyzer 0 % (0-5); Neutrophil # 6.11 X10^3/uL (2.7-7.7); Platelet Count 233 K/mm3 (150-450); RBC Distribution Width CV 13.4 % (11.6-14.6); RBC Distribution Width SD 45.2 fl (35.1-43.9); Red Blood Count 4.37 M/mm3 (4.2-5.4); White Blood Count 10.3 K/mm3 (4.4-11.0)
[2022-10-30 04:07] LABS: Anion Gap 7 (5-15); BUN 13 mg/dL (7-18); BUN/Creat Ratio 18.7 RATIO (10-20); Calcium,Total 8.9 mg/dL (8.5-10.1); Chloride 109 mmol/L (98-107); Creatinine, Serum 0.69 mg/dL (0.55-1.02); EST Glomerular Filtration Rate 108 mL/min (>60); Est Glom Filt Rate - Afr Amer 131 mL/min (>60); Estimated Creatinine Clearance 102.21 ml/min; Glucose 102 mg/dL (74-106); Potassium 3.3 mmol/L (3.5-5.1); Sodium Level 140 mmol/L (136-145)
== END 2022-10-30 05:44 | disposition home or self-care (01) ==
PROVIDERS: Emergency Provider Emergency Medicine; PCP Nurse Practitioner Family; Visit Provider Emergency Medicine
DX: I88.9 Nonspecific lymphadenitis, unspecified (principal); F17.210 Nicotine dependence, cigarettes, uncomplicated
CPT/HCPCS: 70491; 80048; 85025; 90471; 96365; 99285; Q9967; J0295

== ENCOUNTER 2022-11-22 00:37 | Emergency (ER) | payer MEDICAID, SELFPAY ==
[2022-11-22 00:38] VITALS: BP 129/80; PULSE 132; RESP 18; TEMP 36.4; O2SAT 100; BMI 30.4
--- NOTE | 2022-11-22 01:49 | EX.ED.UPPERE ---
HPI History of Present Illness Chief Complaint: Laceration Narrative Narrative: Patient presents with left arm lacerations. She apparently fell through a window and then pulled her arm back out which is when she sustained lacerations. Tetanus is up-to-date. No other injuries she has no foreign body sensation. [facility] Medical History Diarrhea Influenza A Nicotine dependence Obesity Tachycardia Home Medications cholecalciferol (vitamin D3) 25 mcg (1,000 unit) tablet 25 mcg PO DAILY 08/15/22 [History Last Taken Unknown] metoprolol succinate 25 mg tablet,extended release 24 hr 25 mg PO DAILY 08/15/22 [History Last Taken Unknown] nitrofurantoin monohydrate/macrocrystals 100 mg capsule 100 mg PO Q12 #10 CAPSULES 08/15/22 [Rx Last Taken Unknown] amoxicillin 875 mg-potassium clavulanate 125 mg tablet 875 mg PO Q12H #20 TABLETS 10/30/22 [Rx Last Taken Unknown] Allergy/AdvReac Type Severity Reaction Status Date / Time sulfamethoxazole Allergy Hives Verified 11/22/22 00:41 [From Bactrim] trimethoprim [From Bactrim] Allergy Hives Verified 11/22/22 00:41 Family History Grandmother CAD (coronary artery disease) Aunt CAD (coronary artery disease) Aunt CAD (coronary artery disease) Other Cancer Diabetes Social History household members: none Smoking Status: Current every day smoker tobacco type: cigarettes Tobacco: How many years used: 5 alcohol intake: never ROS ROS ED ROS Narrative Past medical history: none Medications: Reviewed Social history: Noncontributory Review of systems: Musculoskeletal: As in HPI Skin: As in HPI Neurological: No weakness or paresthesias Hematologic: No easy bleeding or easy bruising EXAM Physical Exam Narrative Exam Narrative: Physical exam General: Patient does not appear in significant distress . Head: Normocephalic, Atraumatic Neck: No C-spine tenderness Cardiovascular: Normal distal pulses Back: Nontender, Normal Inspection. Extremities: Patient has 3 different lacerations over the upper arm, one is 3 cm the other ones 4 cm the other 1 is 5 cm. No foreign body is seen no bony tenderness neurovascularly intact Skin: As above Neurological: Normal strength and sensation Const Vital Signs: 11/22/22 00:38 Temperature 97.5 F L Temperature Source Temporal Pulse Rate 132 H Respiratory Rate 18 Blood Pressure 129/80 H Blood Pressure Mean 96 Pulse Ox 100 Oxygen Delivery Method Room Air MDM MDM MDM Narrative Medical decision making narrative: I thought about an x-ray however I could clearly see that there are no foreign bodies, I irrigated and the patient has no foreign body sensation. Wound was sutured. She does not meet criteria for antibiotics. Tetanus is up-to-date. I will discharge her in stable condition. Procedures Lacerations Laceration: Length: 4.72 in Depth: Sub Q Shape: Linear Prep: Love-Ambrocio Laceration repair: Irrigated, Lidocaine, Local, Skin sutures and Wound explored Number of Sutures/[place]: 14 Suture Information: Ethilon, Simple and - (3-0 nylon) Comment: The 5 cm laceration had 5 sutures to 4 cm laceration had 5 sutures and the 3 cm laceration had 4 sutures. Discharge Plan Triage Chief Complaint: Laceration ED Provider: Shaun Abraham Dx/Rx/DC Orders Clinical Impression: Arm laceration Instructions: ED Laceration Minimize Scars Prescriptions: No Action metoprolol succinate 25 mg tablet extended release 24 hr 25 mg PO DAILY Label Comments: Take one tablet by mouth daily. cholecalciferol (vitamin D3) 25 mcg (1,000 unit) tablet 25 mcg PO DAILY Label Comments: TAKE 1 TABLET BY MOUTH EVERY DAY nitrofurantoin monohyd/m-cryst [nitrofurantoin monohyd/m-cryst] 100 mg capsule 100 mg PO Q12 Qty: 10 0RF amoxicillin-pot clavulanate [amoxicillin-pot clavulanate] 875-125 mg tablet 875 mg PO Q12H Qty: 20 0RF Primary Care Provider: Indy Nix NP Referrals: Indy Nix NP, RN ANESTHETIST-C [Primary Care Provider] - 10 Day for suture removal Disposition Disposition: Home, Self Care
[2022-11-22] MEDS: Lidocaine 1% (20 ml mdv) 20 ML Vial INFILT (01:59)
== END 2022-11-22 02:07 | disposition home or self-care (01) ==
PROVIDERS: Emergency Provider Emergency Medicine; PCP Nurse Practitioner Family; Visit Provider Emergency Medicine
DX: S41.112A Laceration without foreign body of left upper arm, initial encounter (principal); W19.XXXA Unspecified fall, initial encounter; F17.210 Nicotine dependence, cigarettes, uncomplicated; W25.XXXA Contact with sharp glass, initial encounter
CPT/HCPCS: 12004; 99283

== ENCOUNTER 2023-04-13 20:20 | Emergency (ER) | payer MEDICAID, SELFPAY ==
[2023-04-13 20:21] VITALS: BP 116/81; PULSE 106; RESP 18; TEMP 36.3; O2SAT 99
[2023-04-13 20:23] VITALS: BMI 31.3
--- NOTE | 2023-04-13 20:52 | ED.VIS.LOWEX ---
HPI History of Present Illness HPI Narrative: 27-year-old female tripped and fell in the vill[place] today injuring her right knee. She states she hit her knee on the ground. Patient is currently 3 months but denies hitting her abdomen. Her due dates September 25, 2023. She is Ab0. She denies any other complaints. Denies any abdominal pain. No vaginal bleeding. Chief Complaint: Lower Extremity Injury Informant: patient Occured/Mechanism Mechanism/Context: Yes injury and Yes blunt trauma Onset/Context/Timing Onset: Today and Hours Context: Sudden Onset Timing: Continuous Quality of Pain: Dull and Aching Current Severity: Mild Maximum Severity: Mild Associated Symptoms Associated Symptoms: Negative for Parasthesia, Weakness or Loss of Funtion Narrative Narrative: 27-year-old female tripped and injured right knee in her vill[place] today. She also to be 3 months . Denies any abdominal pain. She did not hit her abdomen. Prior similar symptoms: No Recent Illness/Hospitalization: No PFSH PFSH Medical History Diarrhea Influenza A Nicotine dependence Obesity Tachycardia Home Medications cholecalciferol (vitamin D3) 25 mcg (1,000 unit) tablet 25 mcg PO DAILY 08/15/22 [History Last Taken Unknown] metoprolol succinate 25 mg tablet,extended release 24 hr 25 mg PO DAILY 08/15/22 [History Last Taken Unknown] nitrofurantoin monohydrate/macrocrystals 100 mg capsule 100 mg PO Q12 #10 CAPSULES 08/15/22 [Rx Last Taken Unknown] amoxicillin 875 mg-potassium clavulanate 125 mg tablet 875 mg (0.875 x 875-125 mg) PO Q12H #20 TABLETS 10/30/22 [Rx Last Taken Unknown] cephalexin 500 mg capsule 500 mg PO Q6 5 days #20 CAPSULES 04/13/23 [Rx Last Taken Unknown] Allergy/AdvReac Type Severity Reaction Status Date / Time sulfamethoxazole Allergy Hives Verified 04/13/23 20:24 [From Bactrim] trimethoprim [From Bactrim] Allergy Hives Verified 04/13/23 20:24 Family History Grandmother CAD (coronary artery disease) Aunt CAD (coronary artery disease) Aunt CAD (coronary artery disease) Other Cancer Diabetes Social History household members: none Smoking Status: Current every day smoker tobacco type: cigarettes Tobacco: How many years used: 5 alcohol intake: never ROS ROS ED ROS Narrative Denies recent illness. Review of Systems ROS Unobtainable: Denies due to encephalopathy Constitutional Constitutional ED: Denies chills or fever(s) Eyes Eyes: Denies blurry vision ENT ENT ED: Denies ear pain Cardiovascular Cardiovascular: Denies chest pain Respiratory/Chest Respiratory/Chest: Denies cough or dyspnea Gastrointestinal Gastrointestinal: Denies abdominal pain Genitourinary Genitourinary ED: Denies dysuria or hematuria Musculoskeletal Musculoskeletal: Denies arthralgias Integumentary Denies abscess or Abrasions Neurologic Neurologic: Denies headache(s) Psychiatric Psychiatric: Denies anxiety Endocrine Endocrinology: Denies polydipsia or polyphagia Hematologic/Lymphatic Hematologic/Lymphatic: Denies easy bleeding or easy bruising Allergic/Immunologic Allergic/Immunologic ED: Denies mouth swelling or tongue swelling EXAM Physical Exam Narrative Exam Narrative: 21-year-old female vital signs stable afebrile. HEENT exam is unremarkable atraumatic. Pupils RelyyT Bhilip Bellow nontender. Neck nontender. C-spine and neck nontender. Lungs clear. Chest wall nontender. Heart regular rhythm no murmur. Rate about 100. Abdomen soft nontender. Distended consistent with . No peritoneal signs. No bruising. Pelvic girdle intact. Moves all 4 extremities. She has tenderness to anterior aspect of her right knee. Minimal swelling. No effusion. She is able to flex and extend the knee. She can lift it off the bed. Extensor mechanism is intact. She can flex and extend. No deformity. ACL and PCL are intact on exam. As are MCL and LCL. No gross bony deformity. Hip and ankle nontender right foot neurovascular intact. Neurologically she is awake and alert with no focal motor deficits. Const Vital Signs: 04/13/23 20:21 Temperature 97.4 F L Temperature Source Temporal Pulse Rate 106 H Respiratory Rate 18 Blood Pressure 116/81 H Blood Pressure Mean 92 Pulse Ox 99 Oxygen Delivery Method Room Air Positive well nourished and well developed; Negative for cachectic, contractures or unkempt General Appearance ED: well developed and NAD; Negative for unkempt, cachectic or contractures Nutritional Appearance: Negative for cachectic HEENT Reports moist mucous membranes normocephalic and atraumatic; Negative for trauma or tenderness Eyes PERRL Neck full ROM and supple Thyroid: Negative for tender Lymph Lymphatic: Negative for other Chest Wall inspection of chest normal and palpation of chest normal Chest: Negative for other Resp normal respiratory effort, no retractions and clear to auscultation bilaterally Effort and Inspection: Negative for pain with movement Auscultation: Negative for rales, rhonchi or wheezes Cardio regular rate, regular rhythm, S1 normal heart sound, S2 normal heart sound and no murmurs GI non-tender, non-distended and no masses GI Narrative: Gravid uterus nontender. Inspection: Negative for abdominal distention Auscultation: normoactive bowel sounds Palpation: soft; Negative for tender or guarding Back/Spine no CVA tenderness General Back: Negative for CVA tenderness Cervical Spine: Negative for cervical spine tenderness Thoracic Spine / Upper Back: Negative for thoracic spinal tenderness Lumbar Spine / Lower Back: Negative for lumbar spinal tenderness Extremity full ROM; Negative for normal to inspection Extremity Narrative: Anterior right knee tenderness. Minimal swelling. Small puncture wound. No effusion. No cellulitis. No obvious foreign body. Flexion extension intact. No bony deformity. Ligaments and tendons intact. No bony deformity. No redness or warmth. General Extremety ED: Negative for cyanosis or edema General Extremity: Negative for cyanosis or edema Neuro oriented x3, CN's II-XII intact bilaterally and moves all extremities Sensorium / Orientation: alert, oriented to person, oriented to place and oriented to time; Negative for orientation impaired, confused, lethargic or stuporous Motor Exam: strength 5/5 throughout Psych mental status grossly normal Appearance: Negative for unkempt Speech: No other Mood & Affect: Negative for anxious Skin no wounds Skin Narrative: Right knee abrasion. Minimal puncture wound. Lesions: no lesions Rashes: no rashes Trauma: abrasion; Negative for laceration MDM MDM MDM Narrative Medical decision making narrative: 27-year-old female tripped and had a puncture wound to her right knee with pain. X-ray being obtained. She will be shielded due to her being 3 months . heart tones to be obtained. Tylenol for pain. Wound will be cleaned and dressed. Nothing to suture at this time. No signs of infection or foreign body. Range of motion intact. Repeat exam patient doing well at 10:10 PM. We went over x-ray results. Given the chance there may be a small foreign body the area will be cleaned locally anesthetized and I will incise it and look for a piece of wood or other foreign body. Radiography Diagnostic Testing: Clinical Impression(s) from Imaging Studies Knee X-Ray 04/13/23 21:08 IMPRESSION: Prepatellar soft tissue swelling. There is a linear density in the prepatellar soft tissues laterally measuring 7 mm, seen on the sunrise view. This could indicate a small foreign body. Electronically Signed: Tj Magana MD at 21:25 EDT , Right knee x-ray 4 views interpreted by myself and radiologist there is no acute bony abnormality. Mild soft tissue swelling. There may be a density that could be foreign body such as a twig or a small piece of wood seen on the x-ray on the sunrise view. Procedures Other Procedures Procedure(s): Right knee suspected foreign body. Cleaned with Shur-Clens. Washed with saline. Local anesthetized with lidocaine. I made a small incision over the puncture wound. The incision was about 1 cm. Horizontal. I cannot see or feel any foreign body. Patient will be discharged home. Wound cleaned and dressed. Placed on Keflex for 5 days. Discharge Plan Triage Chief Complaint: Lower Extremity Injury ED Provider: Richard Powers Dx/Rx/DC Orders Clinical Impression: Foreign body (FB) in soft tissue, Currently , Contusion of knee, right Instructions: ED Contusion, Lower Extremity Prescriptions: New cephalexin 500 mg capsule 500 mg PO Q6 5 Days Qty: 20 0RF No Action metoprolol succinate 25 mg tablet extended release 24 hr 25 mg PO DAILY Patient Comments: Take one tablet by mouth daily. cholecalciferol (vitamin D3) 25 mcg (1,000 unit) tablet 25 mcg PO DAILY Patient Comments: TAKE 1 TABLET BY MOUTH EVERY DAY nitrofurantoin monohyd/m-cryst [nitrofurantoin monohyd/m-cryst] 100 mg capsule 100 mg PO Q12 Qty: 10 0RF amoxicillin-pot clavulanate [amoxicillin-pot clavulanate] 875-125 mg tablet 875 mg PO Q12H Qty: 20 0RF Primary Care Provider: Indy Nix NP Referrals: Indy Nix NP, REPLANTING MACHINE OPERATOR-C [Primary Care Provider] - As Needed Activity Restrictions/Additional Instructions: Keep the area clean. Apply antibiotic ointment daily. Tylenol for pain. Ice to the knee to decrease pain and swelling. There may be retained pieces of wood or small splinter. Keflex antibiotic 1 pill 4 times a day for the next 5 days General prevent infection. Any pus, redness, streaks, fever need to be reevaluated. Disposition Disposition: Home, Self Care
--- NOTE | 2023-04-13 21:08 | RAD_ITS ---
EXAM: XR RIGHT KNEE COMPLETE, 4 OR MORE VIEWS CLINICAL INDICATION: trauma. Pregnat and shield TECHNIQUE: Four or more views of the right knee. COMPARISON: No relevant prior studies available. FINDINGS: BONES/JOINTS: No acute fracture. No subluxation. Normal alignment. Preservation of the joint space. SOFT TISSUES: Prepatellar soft tissue swelling. There is a linear density in the prepatellar soft tissues laterally measuring 7 mm, seen on the sunrise view. RAD/Knee 4 or More Views IMPRESSION: Prepatellar soft tissue swelling. There is a linear density in the prepatellar soft tissues laterally measuring 7 mm, seen on the sunrise view. This could indicate a small foreign body. Electronically Signed: Tj Magana MD at 21:25 EDT ,
[2023-04-13] MEDS: Acetaminophen 500 MG Tablet 1000 MG PO (21:56)
--- NOTE | 2023-04-13 22:20 | ED.RN ---
YELLING HEARD FROM ROOM. BOYFRIEND AND MOTHER AT BEDSIDE. PATIENT INITIALLY YELLING AT BOYFRIEND THEN AT MOTHER. ATTEMPTED TO DE-ESCALATE, PATIENT CONTINUES TO YELL. BOTH VISITORS REMOVED FROM ROOM.
--- NOTE | 2023-04-13 23:36 | ED.RN ---
MOTHER IN WAITING ROOM ASKING TO SPEAK TO NURSE, STATES SHE WANTS TO CALL ADMINISTRATION. THIS NURSE TO WAITING ROOM TO TALK TO HER. SHE STATES SHE IS UPSET SHE WAS TOLD TO LEAVE HER DAUGHTER'S ROOM WHEN IT WAS HER BOYFRIEND THAT WAS AGITATING HER, NOT HER MOTHER. EXPLAINED THAT IT WAS OBSERVED THE PATIENT YELLING AT HER ALSO AND THE PATIENT BEING UPSET WHILE SHE WAS IN THE ROOM. MOM VERBALIZED UNDERSTANDING BUT CONTINUED TO STATE THAT IT WASN'T HER FAULT. INFORMED THAT ANY PATIENT THAT HAS ANY VISITOR UPSETTING THEM, THE VISITOR IS ASKED TO LEAVE AND NOT PERMITTED TO RETURN. INFORMED THAT SHE MAY WAIT IN THE WAITING ROOM. MOM THEN SEES BOYFRIEND IN FRONT OF THE TRIAGE DESK AND BEGINS TO RAISE VOICE AT BOYFRIEND, TELLING HIM TO LEAVE AND THAT HE CANNOT BE AROUND THE PATIENT. THIS NURSE ASKED MOM TO RETURN TO WAITING ROOM TO SIT AND WAIT CALMLY, AND THAT IF SHE WAS UNABLE TO DO THAT SHE WOULD NEED TO WAIT OUTSIDE OR IN HER CAR. BOYFRIEND ASKED TO LEAVE PROPERTY, ESCORTED OFF PROPERTY BY OFFICER YUDY
[2023-04-14] MEDS: Lidocaine 1% (20 ml mdv) 20 ML Vial 10 ML INFILT (00:03)
[2023-04-14] MEDS: Cephalexin 250 MG Capsule 500 MG PO (00:03)
== END 2023-04-14 00:03 | disposition home or self-care (01) ==
PROVIDERS: Emergency Provider Emergency Medicine; PCP Nurse Practitioner Family; Visit Provider Emergency Medicine
DX: O9A.22 Injury, poisoning and certain other consequences of external causes complicating childbirth (principal); S81.041A Puncture wound with foreign body, right knee, initial encounter; W22.8XXA Striking against or struck by other objects, initial encounter; Y92.89 Other specified places as the place of occurrence of the external cause; F17.210 Nicotine dependence, cigarettes, uncomplicated; O99.333 Smoking (tobacco) complicating pregnancy, third trimester; Z3A.00 Weeks of gestation of pregnancy not specified
CPT/HCPCS: 27372; 10120; 73564; 99282

== ENCOUNTER 2023-08-03 09:00 | Outpatient (CLI) | payer MEDICAID, SELFPAY ==
--- OUTSIDE RECORDS SUMMARY | 2023-08-03 09:06 | XMS RPT_ITS | CCD ---
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 provided: Yes Provider Bharath Leo CNM was present in office at time of injection. Sriram Huitron Cma [facility] 06-30-2023 Miscellaneous Notes Images from the original note were not included. ELLEN-S: Amalia Mcpherson is a 28 year old female who presents at 27w3d with DUNG:09/26/2023, by Ultrasound for a routine visit. complicated by Homelessness, sleeping at various friends homes, sometimes outside. Has prior substance abuse, denies use currently, I did that when I was 20 yrs old States she has a felony for taking a shower in her grandmother's home. Eats once per day, sometimes eats at grandparents home, sometimes forgets to take PNV. Does not want to go to Women's group home. The women are not nice there. When asked if staying in mother's home is an option, pt's mother shook her head no. Pt's mother has custody of pt's 6 yr old daughter. Began crying again when discussing FOB He's a heroin addict and he's in custodial Denies headache, visual changes, chest pain, shortness of breath, vaginal bleeding, leakage of fluid, or dysuria. Has appointment to address circumoral dermatitis. O: See flow sheet Gen: Alert and oriented. In distress when talking about current living situation, . Abd: Gravid, nontender S=D, TWG 14 lb ASSESSMENT/PLAN: 1. 27 weeks gestation of 2. Supervision of other high risk pregnancies, second trimester 3.1 hour GCT, CBC, and RPR today 4. TDAP today 5. LARC form reviewed and signed. Patient declines. Interested in Tubal ligation 6. Depression screen negative 7. Opioid screen negative 8. plan form discussed and given to patient. 9. PTL precautions and kick counts reviewed 10. Offered urine tox screen today, pt prefers to test on different day. 11. Offered Psych referral to assist with depression. Pt considering, but not today. 12. RTO- 2 weeks or sooner if needed I spent 30 minutes in the visit, with more than 50% of the total vlec-cs-pttz time of the visit in counseling / coordination of care. Freddy Alvarez [facility] TEACHING DESIZING MACHINE OPERATOR NOTE OF PERSONAL INVOLVEMENT IN CARE: I have interviewed the patient and updated the midwifery student's PFS history, and ROS as necessary. I have re-performed the HPI, Physical Examination, Assessment and Plan. Bharath Leo APRN.[facility] SBVIOLETTA Mcpherson was given the 's screening tool. Amalia answered as follows: OB Opioid Screening - Last Recorded (since 10/03/2022) Did any of your parents have a problem with alcohol or other drug use? No Does your partner have a problem with alcohol or other drug use? No In the past, have you had difficulties in your life because of alcohol or other drugs, including prescription medications? Yes In the past month have you drunk any alcohol or used other drugs? No Are you taking medication for pain during the either prescribed or not? No Based on the screen and further questions, she is considered at moderate risk due to: Stopped use late in . Patient offered brief intervention, plan rescreen early third trimester, and urine toxicology, patient or surrogate (if available) has been given information of the risks, benefits and limitations of toxicology testing. Patient or surrogate was given the Patient Information Sheet for Maternal Toxicology Lab Test. All questions have been answered. Patient indication(s) for toxicology testing includes recent use. She declines testing and refusal today. Patient or surrogate does not consent to testing.. In discussing this issue my medical advice was that Amalia Mcpherson abstain. Her readiness to change(0 lowest - 10 highest) was 5. We discussed her motivation to change based upon this response. Patient agreed that she would: abstain and speak with our behavioral health coordinator. Patient will return in 2 weeks to discuss her progress with this plan. In total, 15 minutes of personal time was spent administering and interpreting the screen, plus performing a brief intervention. Bharath Leo APRN.CNM documented in this encounter [facility] 06-30-2023 History of Presen t illness Narrative Patient identified by name and date of . Amalia Mcpherson presents today for a vaccination of Tdap. Patient denies an allergy to latex: yes Patient denies a severe (life-threatening) allergy to a previous dose of Tdap, DTP, DTaP, DT or Td vaccine. Yes Patient denies history of epilepsy or neurological problems: Yes Patient is afebrile and denies being moderately or severely ill: Yes Patient denies history of Guillain-Nora Syndrome (a severe paralytic illness): Yes Tdap Adacel injection was given without incident. See immunizations for details of immunizations administered today. VIS sheet provided: Yes Provider Bharath Leo CNM was present in office at time of injection. Sriram Huitron Cma documented in this encounter [facility] 06-30-2023 Instructions Bharath Leo APRN.CNM - 06/30/2023 1:10 PM EST SEQUENTIAL SCREENINGS The [facility] offers sequential screenings for women who are interested in screenings for chromosomal abnormalities and certain defects during a . The sequential screen combines ultrasound and blood tests to determine the risk of chromosomal abnormalities, including Down's Syndrome (Trisomy 21) and Trisomy 18, as well as open neural tube defects including spina bifida. Ultrasound examination is performed between 11 weeks and 13 weeks gestational age. Blood tests are drawn after the ultrasound and again later in the between 15 and 21 weeks gestational age. Please let your physician know if you are interested in this testing. It will require an appointment with our chemical production technician. This is not an ultrasound performed by a physician in our office during a routine visit. SIGNS AND SYMPTOMS OF LABOR 1. Contractions every 10 minutes or more often 2. Clear, pink, or brownish fluid (water) leaking from vagina 3. Feeling that baby is pushing down, pressure 4. Low, dull backache 5. Cramps that feel like a period 6. Cramps with or without diarrhea If you notice any of the above symptoms, contact our office at [phone] and ask to speak with a nurse. After hours, you can call doctors registry at [phone] OR call [facility] at [phone] and ask to have the doctor equipment validation engineer paged. If you consider this an emergency, dial 9-1-0 or go to your nearest emergency department. NEED HELP? Are you dealing with a violent or abusive relationship? Are you a victim of rape or sexual assult? Call [facility] ([facility] 24 hour Crisis Hotline: 952.169.2646 or 528-954-8231. MANUAL Your Guide to a Healthy manual is now on-line. Visit [facility]/HealthyPregn ancyGuide to download your free copy [place]- Call 917-191-7470 WIC is the Special Supplemental Nutrition Program for Women, Infants, and Children. WIC helps eligible and women, women who recently had a baby, infants, and children up to 5 years of age. For [facility] . Located in [place]. [address] [place] [address]- Call [phone] To get information for the Cribs for Kids Program and [place], call or visit their website (https://www.[facility].org/) [facility] The [facility] safeguards the health of its residents by: promoting healthy lifestyles through education, preventing and monitoring disease, and protecting and preparing against environmental public health risks www.trentonVivint.org [facility]- Call 643-518-0441 They provide free material mom and baby goods, counseling, and baby classes Help Me Grow- Call 582-051-5958 Is the hub for a number of Community Health Worker organizations which provide home visits and support for families to improve the overall health and outcome of infants/children. Refers women to WIC as well. (https://www.helpmegrow.org/) [facility] - Call 807-218-4892 Can assist with low-income housing resources Food Assistance [facility] Phantom- Call Need to apply for food stamps (SNAP), noguera assistance (TANF), daycare voucher, Medicaid insurance, call or visit their website. (https://www.[employer] [place] /food-assistance) [facility] Phantom Food Assisstance Food Assistance helps families stretch their food budgets to buy healthy food. The program is designed to increase nutritional levels and safeguard the health and well-being of [facility] residents. www.[employer] [place] National Domestic Violence Hotline- Call National Sexual Assault Hotline- Call National Suicide Prevention Hotline- Call 834 or Transportation If you have Medicaid insurance, please call the toll-free number on the back of your insurance card or the number noted below. Explain to the traffic workforce representative that you are in need of transportation. All OB visits, ultrasound appointments, all doctor visits, WIC appointments, trips to the pharmacy to pick up attendant medications, visits to the lab for blood work, and much more are covered. Call 0-295-176-ITML Childbirth Classes, Classes and Hospital Tours for [facility]: To register for in person classes, you can call or sign up online To register for classes by phone call: For [facility] Childbirth Education Department- [phone] For [facility] Childbirth Education Department- [phone] To register online: 1) go to Down, type in search box; [email or web address] 2) select your hospital 3) select view all upcoming classes (in blue box) 4) and select your class For help or if you have questions call [employer] or [employer]. documented in this encounter [facility] 06-09-2023 Note HNO ID: [id number] Author: Reginald Sung MD Service: ? Author Type: Physician Type: Progress Notes Filed: 06/10/2023 10:39 AM Note Text: Follow Up:iritis (recurrent) + HLA B27 Interval History: recurrent Iritis. Now Left eye. present for 1 month. Using steroid and atropine drops. She is and delivery expected late September, States eye is improving. Denies any joint pain or low back pain. CTD ROS:constitutional: no fevers, chills, night sweats, sleep disturbance, daytime fatigue skin- no rashes or ulcers, no hair loss ent- no oral ulcers, dry mouth or dry eyes chest- no cough , wheezes heart- no chest pain , SOB, JOHNSON, orthopnea abd- no GI complaints, no nausea of vomiting, no constipation gu- No nocturia, no hematuria or change in urine stream or frequency joints- see HPI ext- no edema/ swelling. no raynaud's heme: no bleeding, no history of DVT; no history of recurrent infections. neuro-NEG for migraine headaches. Neg for numbness or tingling ACTIVE PROBLEM LIST Attention Deficit Disorder Without Mention of Hyperactivity Tobacco Use Disorder History of Substance Use PAST MEDICAL HISTORY Diagnosis Date Attention deficit disorder with hyperactivity(314.01) as a child Iritis MRSA infection Treated x 2 - milk duct and arm (spontaneous vaginal delivery) 2017 Tachycardia Tobacco use disorder 09/05/2014 PAST SURGICAL HISTORY Procedure Laterality Date NONE Social History Tobacco Use Smoking status: Every Day Packs/day: 1.00 Years: 8.00 Additional pack years: 0.00 Total pack years: 8.00 Types: Cigarettes Smokeless tobacco: Never Vaping Use Vaping Use: Former Substance Use Topics Alcohol use: Not Currently Drug use: Not Currently Types: Marijuana, Cocaine Objective: BP 124/74 Pulse 110 Temp 36.5 ?C (97.7 ?F) (Temporal) Wt 83.8 kg (184 lb 12.8 oz) LMP (LMP Unknown) BMI 32.74 kg/m? joints are all S0T0L0 HEENT:scalp normal, normal hair, conjunctiva pink, sclera white, mucosa moist, pharynx normal L eye conjunctiva white Pupil dilated. neck:supple, no adenopathy, thyroid normal without masses or nodules skin: no rashes ext: no edema lungs: Clear to PANDA cor:s1, s2 normal. No murumurs gallops or rubs Abd: non tender, no masses, no organomegaly Diagnoses and all orders for this visit: Iritis of left eye - BLOOD TB SCREEN; Future - HEP B SURF AG SCRN; Future Discussed risks benefits of Humira and risks. There is a chance of immune suppression of the if used in the 3rd trimester. My recommendation is if eye continue to improve (has follow up with resizer operator this ) then we wait to start Humira after delivery. She is not planning on . see back 3 months. Reginald Sung MD [facility] 06-09-2023 History of Presen t illness Narrative Follow Up:iritis (recurrent) + HLA B27 Interval History: recurrent Iritis. Now Left eye. present for 1 month. Using steroid and atropine drops. She is and delivery expected late September, States eye is improving. Denies any joint pain or low back pain. CTD ROS:constitutional: no fevers, chills, night sweats, sleep disturbance, daytime fatigue skin- no rashes or ulcers, no hair loss ent- no oral ulcers, dry mouth or dry eyes chest- no cough , wheezes heart- no chest pain , SOB, JOHNSON, orthopnea abd- no GI complaints, no nausea of vomiting, no constipation gu- No nocturia, no hematuria or change in urine stream or frequency joints- see HPI ext- no edema/ swelling. no raynaud's heme: no bleeding, no history of DVT; no history of recurrent infections. neuro-NEG for migraine headaches. Neg for numbness or tingling ACTIVE PROBLEM LIST Attention Deficit Disorder Without Mention of Hyperactivity Tobacco Use Disorder History of Substance Use PAST MEDICAL HISTORY Diagnosis Date Attention deficit disorder with hyperactivity(314.01) as a child Iritis MRSA infection Treated x 2 - milk duct and arm (spontaneous vaginal delivery) 2017 Tachycardia Tobacco use disorder 09/05/2014 PAST SURGICAL HISTORY Procedure Laterality Date NONE Social History Tobacco Use Smoking status: Every Day Packs/day: 1.00 Years: 8.00 Additional pack years: 0.00 Total pack years: 8.00 Types: Cigarettes Smokeless tobacco: Never Vaping Use Vaping Use: Former Substance Use Topics Alcohol use: Not Currently Drug use: Not Currently Types: Marijuana, Cocaine Objective: BP 124/74 Pulse 110 Temp 36.5 C (97.7 F) (Temporal) Wt 83.8 kg (184 lb 12.8 oz) LMP (LMP Unknown) BMI 32.74 kg/m joints are all S0T0L0 HEENT:scalp normal, normal hair, conjunctiva pink, sclera white, mucosa moist, pharynx normal L eye conjunctiva white Pupil dilated. neck:supple, no adenopathy, thyroid normal without masses or nodules skin: no rashes ext: no edema lungs: Clear to P&A cor:s1, s2 normal. No murumurs gallops or rubs Abd: non tender, no masses, no organomegaly Diagnoses and all orders for this visit: Iritis of left eye - BLOOD TB SCREEN; Future - HEP B SURF AG SCRN; Future Discussed risks benefits of Humira and risks. There is a chance of immune suppression of the if used in the 3rd trimester. My recommendation is if eye continue to improve (has follow up with resizer operator this ) then we wait to start Humira after delivery. She is not planning on . see back 3 months. Reginald Sung MD documented in this encounter [facility] 06-04-2023 Miscellaneous Notes 2nd risk assessment form submitted 06/04/23 Katty Saldaña RN documented in this encounter [facility] 06-03-2023 Miscellaneous Notes Anatomy ultrasound reviewed. No abnormalities identified. Follow up as clinically indicated. Please place copy in ob chart. Drew Kramer MD documented in this encounter [facility] 06-03-2023 Miscellaneous Notes RR- VB No. LOF No. CTXS No. Movement: present. Other c/o: No. Medication list reviewed. Physical Exam See Flow Sheet Abd: soft, nontender, gravid Ext: edema: Trace A/P 23w4d Estimated Date of Delivery: 09/26/23 Labs: 28 week labs next visit US today f/u in 4 weeks or prn Having some perioral dermatitis and has new cream but not working. Recommend f/u w/ PCP or derm Currently homeless, her mom brings her to appointments H/o drug use, denies current use other than 1 PPD tob Drew Kramer M.D. documented in this encounter [facility] 06-03-2023 Rosey Reed Ma - 06/03/2023 8:47 AM EDT SEQUENTIAL SCREENINGS The [facility] offers sequential screenings for women who are interested in screenings for chromosomal abnormalities and certain defects during a . The sequential screen combines ultrasound and blood tests to determine the risk of chromosomal abnormalities, including Down's Syndrome (Trisomy 21) and Trisomy 18, as well as open neural tube defects including spina bifida. Ultrasound examination is performed between 11 weeks and 13 weeks gestational age. Blood tests are drawn after the ultrasound and again later in the between 15 and 21 weeks gestational age. Please let your physician know if you are interested in this testing. It will require an appointment with our chemical production technician. This is not an ultrasound performed by a physician in our office during a routine visit. SIGNS AND SYMPTOMS OF LABOR 1. Contractions every 10 minutes or more often 2. Clear, pink, or brownish fluid (water) leaking from vagina 3. Feeling that baby is pushing down, pressure 4. Low, dull backache 5. Cramps that feel like a period 6. Cramps with or without diarrhea If you notice any of the above symptoms, contact our office at [phone] and ask to speak with a nurse. After hours, you can call doctors registry at [phone] OR call [facility] at [phone] and ask to have the doctor equipment validation engineer paged. If you consider this an emergency, dial 91-3 or go to your nearest emergency department. NEED HELP? Are you dealing with a violent or abusive relationship? Are you a victim of rape or sexual assult? Call [facility] ([place]) 24 hour Crisis Hotline: 983.864.8249 or 268-791-6453. MANUAL Your Guide to a Healthy manual is now on-line. Visit [email or web address]/HealthyPregn ancyGuide to download your free copy documented in this encounter [facility] 04-16-2023 Instructions Rosey Cotter Ma - 04/16/2023 1:25 PM EDT SEQUENTIAL SCREENINGS The [facility] offers sequential screenings for women who are interested in screenings for chromosomal abnormalities and certain defects during a . The sequential screen combines ultrasound and blood tests to determine the risk of chromosomal abnormalities, including Down's Syndrome (Trisomy 21) and Trisomy 18, as well as open neural tube defects including spina bifida. Ultrasound examination is performed between 11 weeks and 13 weeks gestational age. Blood tests are drawn after the ultrasound and again later in the between 15 and 21 weeks gestational age. Please let your physician know if you are interested in this testing. It will require an appointment with our chemical production technician. This is not an ultrasound performed by a physician in our office during a routine visit. SIGNS AND SYMPTOMS OF LABOR 1. Contractions every 10 minutes or more often 2. Clear, pink, or brownish fluid (water) leaking from vagina 3. Feeling that baby is pushing down, pressure 4. Low, dull backache 5. Cramps that feel like a period 6. Cramps with or without diarrhea If you notice any of the above symptoms, contact our office at [phone] and ask to speak with a nurse. After hours, you can call doctors registry at [phone] OR call [facility] at [phone] and ask to have the doctor equipment validation engineer paged. If you consider this an emergency, dial [phone]--1 or go to your nearest emergency department. NEED HELP? Are you dealing with a violent or abusive relationship? Are you a victim of rape or sexual assult? Call [facility] ([place]) 24 hour Crisis Hotline: 371.435.6304 or 330-013-2414. MANUAL Your Guide to a Healthy manual is now on-line. Visit [email or web address]/HealthyPregn ancyGuide to download your free copy documented in this encounter [facility] 03-24-2023 Instructions Reanna Boothe LPN - 03/24/2023 11:41 AM EDT SEQUENTIAL TESTING PROCESS Sequential Screen First Trimester Today you are currently: 13w3d weeks 03/24/2023: Ultrasound and blood test. Sequential Screen Second Trimester (16-17 Weeks Gestation) When you are called with your results, the nurse will give the optimal draw dates for the Sequential screen second trimester. Blood testing can be done at any [facility] lab. Please report to the any barge loader office front line supervisor for the Sequential Part 2 requisition and order before reporting to the lab. Your weight will need to be documented for testing. Please note: -No appointment is need for your second blood draw. -Office hours are 8 am to 4:30 pm. -Please have testing done prior to 12 noon on Friday's -Once the sequential testing is started, in the first trimester the only follow-up will be for the sequential screen second trimester. Please don't have a Quad screen ordered by another provider. If you or your Provider have any questions please call your maternal medicine office, for east side please call [phone] or for the West side call [phone] and ask for the the nurse. Thank you. documented in this encounter [facility] 03-24-2023 Miscellaneous Notes Patient here for First Trimester Screening. See ultrasound report for details. Options for genetic screening and diagnosis discussed with the patient. Patient opts for first trimester screening and the sequential screening protocol. Limitations of screening tests discussed with the patient. Vesna Charles APRN.CNM Please sign order. Reanna Boothe LPN' documented in this encounter [facility] 03-20-2023 Note HNO ID: [id number] Author: Chi Abad MD Service: ? Author Type: Physician Type: Progress Notes Filed: 03/20/2023 1:11 PM Note Text: OB point of care ultrasound was performed. See imaging tab for details. Chi Mcbride MD [facility] 03-20-2023 History of Presen t illness Narrative OB point of care ultrasound was performed. See imaging tab for details. Chi Mcbride MD documented in this encounter [facility] 03-19-2023 Note HNO ID: [id number] Author: Alda Seo MSW Service: ? Author Type: Filter Screen Cleaner Type: Progress Notes Filed: 03/20/2023 8:18 AM Note Text: Sw met with patient,patient mother, and patient boyfriend. Sw discussed local housing assistance agencies. [employer], and [facility] [employer]. Patient mother reports that patient has voucher from [employer] for $600 to help get started with deposit to find apt. Patient states I am tired and we have been sleeping on the street. Can we talk some other time. Sw noted that she would be brief. Discussed requesting from [facility] landlord list for rental options. Patient mom notes that she will help patient reach out to [facility] and see about landlord listing. Discussed also Community Action programs for help with transportation. Discussed with patient also that [employer] has transportation assistance to medical appts. Patient mom notes that she will help patient call [facility] to request new medical card. Patient is aware that she can then check with [facility] for transportation to medical appts. Patient mother notes that she has stayed at [facility] in the past and is not allowed to go back there. Discussed [employer] and patient mom notes that patient had voucher from there in the past, but could not locate place to rent. Sw mentioned urine screen and patient states I am not going to do that. I didn't have to do it with my first child, I am not doing it now. Sw spoke with LÓPEZ Ibanez to discuss patient/patient mom visit concerns. Sw provided patient with her direct number for any further questions/needs. Patient did also note at end of visit that she has court hearing coming up next month. Patient notes I feel like I will get probation. Sw started to ask more about upcoming hearing. Patient states I am tired and ready to leave. [facility] 03-19-2023 Note HNO ID: [id number] Author: Marcelle Albarran APRN.JENNIFER Service: ? Author Type: Nurse Practitioner Type: Progress Notes Filed: 03/19/2023 4:13 PM Note Text: Powder Core Tester offered: Patient declines. Accompanied by mother and father of baby. INITIAL OB ASSESSMENT OB Provider: Marcelle Albarran CNP HPI: Amalia is a 27 year old No obstetric history on file. White here to establish Obstetrical Care. No LMP recorded (lmp unknown). Patient is . from OB Dating Form. Thinks LMP was around 2 months ago. Cycles regular was unplanned but accepted Complaints: None OB History T1 L1 SAB0 IAB0 Ectopic0 Multiple0 Live Births1 Previous history: Prior : never History of 4th degree laceration: No History of shoulder dystocia: No History of Hypertensive disorders including pre-eclampsia, chronic hypertension or gestational hypertension: No History of gestational diabetes: No Patient's Risk Screening for delivery: Have you had a prior hartman between 20w and 36w6d?: No MEDICAL/PSYCHOSOCIAL HISTORY: History of hemorrhage or bleeding concerns: No, did need iron after previous delivery Thyroid Disease: No History of chronic hypertension: No History of pre-existing diabetes: No History of tachycardia. Holter monitor 2 months ago. Started on metoprolol - she discontinued metoprolol when she had positive test 2 months ago. No results found for: ABORHD BMI 29.94 kg/(m2) History of abnormal pap: No Prior treatment for cervical dysplasia: none. History of STDs: trichomonas treated within last month Tobacco use: Yes, 1 ppd Caffeine use: Yes, coffee and soda Drug use: Yes, marijuana Alcohol use: No Multivitamin with Folic acid: Yes Voodoo or heritage: No Would refuse blood transfusion if medically necessary: No Are you currently employed? No Do you have any history of depression, anxiety, PTSD, eating disorders or other mood problems: No Do you have any safety concerns or history of traumatic events that you would like to discuss with your provider: No How often does this describe you? I don't have enough money to pay my bills: Very often Within the past 12 months, have you worried that your food would run out before you had money to buy more: Very often In the past 12 months, has lack of reliable transportation kept you from going to medical appointments or work, or from keeping things needed for daily living: Very often In the past 12 months, have you had any concerns about having a place to live, or about the condition or quality of your housing: Very often Are there any cultural or spiritual needs we should be aware of: No Depression: admits to symptoms of depression. OB Depression and Anxiety Screening- This Encounter (since 03/18/2023) Over the past 2 weeks have you felt down, depressed, or hopeless? Positive - Further Testing Indicated Over the past two weeks, have you felt little interest or pleasure in doing things?? Negative I have been able to laugh and see the funny side of things. As much as I always could I have looked forward with enjoyment to things. As much as I ever did I have blamed myself unnecessarily when things went wrong. Yes, some of the time I have been anxious or worried for no good reason. No, not at all I have felt scared or panicky for no good reason. No, not much Things have been getting on top of me. No, most of the time I have coped quite well I have been so unhappy that I have had difficulty sleeping. Not very often I have felt sad or miserable. Not very often I have been so unhappy that I have been crying. Only occasionally The thought of harming myself has occurred to me. Never [place] Depression Scale Total 7 Feeling nervous, anxious or on edge 0-Not at all Not being able to stop or control worrying 0-Not al all Anxiety Pre-Screening Total (If >/= 3 additional questions will be reviewed) 0 GENETIC SCREENING: Partner present: Yes Patient verbalized knowledge of partner family health history: Yes Do you or your partner have any personal or family history of defects not previously discussed: No Do you have history of a complicated by anomaly, genetic condition, or demise: No Marital Status:Co-habitating Partner: Name: Johann Haines Age: 28 Occupation: unemployed Gender: Male History of STDs: Hep C positive PAST MEDICAL HISTORY Diagnosis Date 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 choleca (more content not included)... [facility] 03-19-2023 History of Presen t illness Narrative Sw met with patient,patient mother, and patient boyfriend. Sw discussed local housing assistance agencies. [employer], and [email or web address]. Patient mother reports that patient has voucher from [employer] for $600 to help get started with deposit to find apt. Patient states I am tired and we have been sleeping on the street. Can we talk some other time. Sw noted that she would be brief. Discussed requesting from [facility] [employer] list for rental options. Patient mom notes that she will help patient reach out to [facility] and see about [employer] listing. Discussed also Community Action programs for help with transportation. Discussed with patient also that [employer] has transportation assistance to medical appts. Patient mom notes that she will help patient [facility] to request new medical card. Patient is aware that she can then check with [facility] for transportation to medical appts. Patient mother notes that she has stayed at [employer] in the past and is not allowed to go back there. Discussed [employer] and patient mom notes that patient had voucher from there in the past, but could not locate place to rent. Sw mentioned urine screen and patient states I am not going to do that. I didn't have to do it with my first child, I am not doing it now. Robin spoke with LÓPEZ Ibanez to discuss patient/patient mom visit concerns. Sw provided patient with her direct number for any further questions/needs. Patient did also note at end of visit that she has court hearing coming up next month. Patient notes I feel like I will get probation. Sw started to ask more about upcoming hearing. Patient states I am tired and ready to leave. documented in this encounter [facility] 03-19-2023 History of Presen t illness Narrative Powder Core Tester offered: Patient declines. Accompanied by mother and father of baby. INITIAL OB ASSESSMENT OB Provider: Marcelle Albarran CNP HPI: Amalia is a 27 year old No obstetric history on file. White here to establish Obstetrical Care. No LMP recorded (lmp unknown). Patient is . from OB Dating Form. Thinks LMP was around 2 months ago. Cycles regular was unplanned but accepted Complaints: None OB History T1 L1 SAB0 IAB0 Ectopic0 Multiple0 Live Births1 Previous history: Prior : never History of 4th degree laceration: No History of shoulder dystocia: No History of Hypertensive disorders including pre-eclampsia, chronic hypertension or gestational hypertension: No History of gestational diabetes: No Patient's Risk Screening for delivery: Have you had a prior hartman between 20w and 36w6d?: No MEDICAL/PSYCHOSOCIAL HISTORY: History of hemorrhage or bleeding concerns: No, did need iron after previous delivery Thyroid Disease: No History of chronic hypertension: No History of pre-existing diabetes: No History of tachycardia. Holter monitor 2 months ago. Started on metoprolol - she discontinued metoprolol when she had positive test 2 months ago. No results found for: ABORHD BMI 29.94 kg/(m^2) History of abnormal pap: No Prior treatment for cervical dysplasia: none. History of STDs: trichomonas treated within last month Tobacco use: Yes, 1 ppd Caffeine use: Yes, coffee and soda Drug use: Yes, marijuana Alcohol use: No Multivitamin with Folic acid: Yes Voodoo or heritage: No Would refuse blood transfusion if medically necessary: No Are you currently employed? No Do you have any history of depression, anxiety, PTSD, eating disorders or other mood problems: No Do you have any safety concerns or history of traumatic events that you would like to discuss with your provider: No How often does this describe you? I don't have enough money to pay my bills: Very often Within the past 12 months, have you worried that your food would run out before you had money to buy more: Very often In the past 12 months, has lack of reliable transportation kept you from going to medical appointments or work, or from keeping things needed for daily living: Very often In the past 12 months, have you had any concerns about having a place to live, or about the condition or quality of your housing: Very often Are there any cultural or spiritual needs we should be aware of: No Depression: admits to symptoms of depression. OB Depression and Anxiety Screening- This Encounter (since 03/18/2023) Over the past 2 weeks have you felt down, depressed, or hopeless? Positive - Further Testing Indicated Over the past two weeks, have you felt little interest or pleasure in doing things? Negative I have been able to laugh and see the funny side of things. As much as I always could I have looked forward with enjoyment to things. As much as I ever did I have blamed myself unnecessarily when things went wrong. Yes, some of the time I have been anxious or worried for no good reason. No, not at all I have felt scared or panicky for no good reason. No, not much Things have been getting on top of me. No, most of the time I have coped quite well I have been so unhappy that I have had difficulty sleeping. Not very often I have felt sad or miserable. Not very often I have been so unhappy that I have been crying. Only occasionally The thought of harming myself has occurred to me. Never [place] Depression Scale Total 7 Feeling nervous, anxious or on edge 0-Not at all Not being able to stop or control worrying 0-Not al all Anxiety Pre-Screening Total (If >/= 3 additional questions will be reviewed) 0 GENETIC SCREENING: Partner present: Yes Patient verbalized knowledge of partner family health history: Yes Do you or your partner have any personal or family history of defects not previously discussed: No Do you have history of a complicated by anomaly, genetic condition, or demise: No Marital Status:Co-habitating Partner: Name: Johann Haines Age: 28 Occupation: unemployed Gender: Male History of STDs: Hep C positive PAST MEDICAL HISTORY Diagnosis Date 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 cholecalciferol (VITAMIN D3) 1,000 unit tab tablet Take 1,000 Units by mouth once daily. metoprolol succinate ER (TOPROL XL) 25 mg 24 hr tablet Take 25 mg by mouth once daily. (Patient not taking: Reported on 03/19/2023) No current facility-administered medications for this visit. Allergies As of Date: 03/19/2023 Allergen Noted Reaction BACTRIM [SULFAMETHOXAZOLE-TRIMETH*2022 Hives and Itching SULFAMETHOXAZOLE 06/20/2022 Hives TRIMETHOPRIM 06/20/2022 Hives Fully Assessed 03/19/2023 Does patient have penicillin allergy: No REVIEW OF SYSTEMS: GENERAL: Negative for: Fever or Chills HEENT: Negative for: Headache, Impaired Vision, Ringing in Ears, Nosebleeds NECK: Negative for: Swelling, Pain, Stiffness RESPIRATORY: Negative for: Cough, Shortness of breath, Wheezing GASTROINTESTINAL: Negative for: Heartburn, Constipation, Diarrhea, Blood in stool, Vomiting MUSCULOSKELETAL: Negative for: Muscle or joint pain, stiffness, Joint swelling NEUROLOGIC/PSYCHIATRIC: Negative for: Weakness, Paralysis, Numbness, Tingling, Tremor, Anxiety, Memory loss SKIN: Negative for: Rash, Itching GENITOURINARY: Negative for: vaginal itching, vaginal discharge, hematuria or dysuria PHYSICAL EXAM: BP 120/76 Ht 5' 3 (1.60m) Wt 169 lb (76.7kg) BMI 29.94 kg/(m^2). GENERAL: pleasant in no apparent distress DERMATOLOGY: Normal, without lesions, non-icteric, and non-hirsute NECK: Supple, full range of motion, no adenopathy, and thyroid normal CHEST: Normal inspiratory effort BREAST: soft, non-tender, symmetric, no dominant mass, normal nipple-areolar complex, no lymphadenopathy, and no nipple discharge ABDOMEN: soft, non-tender, and no masses NEURO: alert and oriented x3,exam grossly non-focal PELVIS: External genitalia normal without lesions. Perineal body intact. No vaginal or cervical lesions. Cervix closed. Uterus 12 week size. No adnexal masses or tenderness. Clinical Pelvimetry: Pelvimetry clinically assessed as adequate Limited OB ultrasound exam: single intrauterine , positive cardiac activity, and crown-rump length 12 wk 4 days OB Risk Screening: Completed, no positive findings documented. ASSESSMENT: 27 year old No obstetric history on file. at 12w5d wks gestational age PLAN: 1) Patient oriented to practice. Patient given new OB orientation folder. Discussed nutrition, folic acid supplementation, dietary guidelines, exercise, smoking, alcohol, caffeine, and drug use. Discussed gestational weight gain guidelines. Discussed routine OB labs including STD/HIV. Discussed how to access Your guide to a health and the Bi Tester. Discussed aneuploidy and carrier screening. Regarding aneuploidy screening, nuchal translucency/first trimester early anatomy ultrasound and NIPT were discussed. Regarding carrier screening, the myriad screen was discussed. The risks/benefits and limitations of NIPT/aneuploidy screening were reviewed including the potential for false negative and false positive results. We discussed the availability of professional-society guided carrier screening and reviewed the conditions screened and limitations of screening. The availability of genetic counseling was reviewed. Information on aneuploidy/carrier screening was provided. The patient chooses: Aneuploidy screening: chooses to proceed with First trimester early anatomy ultrasound (12-13w6d) and Carrier screening: Declines 2) History of tachycardia - Holter monitor Dr Huber 3) Current tobacco use. Previous use of marijuana and cocaine 4) Homeless 5) ELLIE Huang met with pt, partner and pt's mother. Follow up in 4 weeks or sooner prn. Marcelle Albarran APRN.CNP documented in this encounter [facility] 03-19-2023 Instructions Mary Aly MA - 03/19/2023 11:04 AM EDT Please select the following link to access the [facility] Your Guide to a Healthy . [email or web address] documented in this encounter [facility] 08-12-2022 Note HNO ID: [id number] Author: ZHANNA Comer) Service: ? Author Type: Technologist Type: Progress Notes Filed: 08/12/2022 11:44 AM Note Text: Radiology Service Progress Note PATIENT NAME: Amalia Mcpherson DATE OF SERVICE: August 12, 2022 TIME: 11:44 AM PATIENT IDENTITY VERIFICATION COMPLETED USING TWO (2) IDENTIFIERS: Name and Date of confirmed by patient verbally. FALL SCREENING: Has the patient had 2 falls in the last year or 1 fall with injury or currently using an Ambulatory Assistive Device (Walker, Cane, Wheelchair, Crutches, etc.)? No PATIENT GENDER DATA: Female. status: : No status: NO. PATIENT RELEVANT IMPLANT DATA REVIEWED: Not Applicable RADIOLOGY DEPARTMENT: General X-ray: Exam(s) Completed: Spine X-Ray(s): Thoracic and Lumbar AP / LAT / L5-S1 Pelvis X-Ray: sacroiliac joints PERIPHERAL IV DATA: Not applicable SIGNED BY: RT Nahomi(Freddy) August 12, 2022 11:44 AM [facility] 08-12-2022 History of Presen t illness Narrative Radiology Service Progress Note PATIENT NAME: Amalia Mcpherson DATE OF SERVICE: August 12, 2022 TIME: 11:44 AM PATIENT IDENTITY VERIFICATION COMPLETED USING TWO (2) IDENTIFIERS: Name and Date of confirmed by patient verbally. FALL SCREENING: Has the patient had 2 falls in the last year or 1 fall with injury or currently using an Ambulatory Assistive Device (Walker, Cane, Wheelchair, Crutches, etc.)? No PATIENT GENDER DATA: Female. status: : No status: NO. PATIENT RELEVANT IMPLANT DATA REVIEWED: Not Applicable RADIOLOGY DEPARTMENT: General X-ray: Exam(s) Completed: Spine X-Ray(s): Thoracic and Lumbar AP / LAT / L5-S1 Pelvis X-Ray: sacroiliac joints PERIPHERAL IV DATA: Not applicable SIGNED BY: RT Nahomi(R) August 12, 2022 11:44 AM documented in this encounter [facility] 08-12-2022 Note HNO ID: [id number] Author: Reginald Sung MD Service: ? Author Type: Physician Type: Progress Notes Filed: 08/12/2022 10:51 AM Note Text: xref: Corinne uV MD [address] [facility] [id number] I have been asked to see Amalia Mcpherson for Ankylosing Spondylitis by Corinne Vu MD [address] [facility] [address] HPI: Diagnosing of ankylosing spondylitis. Several episodes of iritis. She was found to have a + HLA B27. iritis treated with a steroid eye drop. affected vision in R eye. Currently not on any treatment. She occasionally awakens with dicsomfort, with soreness in rib area and hard to take a deep breath. Happens only now and then. Occasional aching in the knee cap 2 -3 years ago. There is occasional ankle swelling. no skin rashes or psoriasis. no bowel of bladder complaints. CTD ROS:constitutional: no fevers, chills, night sweats, sleep disturbance, daytime fatigue skin- no rashes or ulcers, no hair loss ent- no oral ulcers, dry mouth or dry eyes chest- no cough , wheezes heart- no chest pain , SOB, JOHNSON, orthopnea abd- no GI complaints, no nausea of vomiting, no constipation gu- No nocturia, no hematuria or change in urine stream or frequency joints- see HPI ext- no edema/ swelling. no raynaud's heme: no bleeding, no history of DVT; no history of recurrent infections. neuro-NEG for migraine headaches. Neg for numbness or tingling ACTIVE PROBLEM LIST Attention Deficit Disorder Without Mention of Hyperactivity Tobacco Use Disorder PAST MEDICAL HISTORY Diagnosis Date Attention deficit disorder with hyperactivity(314.01) PAST SURGICAL HISTORY Procedure Laterality Date NONE Social History Tobacco Use Smoking status: Every Day Smokeless tobacco: Never Tobacco comments: 3 cigs daily 01/05/14 Substance Use Topics Alcohol use: No Drug use: No FAMILY HISTORY Problem Relation Age of Onset None Mother None Father Diabetes Maternal Grandmother Stroke Maternal Grandfather Seizures Maternal Grandfather COPD Paternal Grandfather obj: PHYSICAL EXAMINATION: BP 140/90 Pulse 102 Temp 36.5 ?C (97.7 ?F) (Temporal) Wt 74.6 kg (164 lb 8 oz) LMP 10/19/2014 BMI 29.14 kg/m? General appearance: Well appearing, alert, in no acute distress, well-hydrated, well nourished. Skin: Skin color, texture, turgor normal, no suspicious rashes or lesions Head: Normocephalic, no masses, lesions, tenderness or abnormalities Eyes: Anicteric sclera. Pupils are equally round and reactive to light. Extraocular movements are intact. Ears: External ears normal, canals clear Nose/Sinuses: Nares normal, septum midline, mucosa normal, no drainage or sinus tenderness Oropharynx: Lips, mucosa, and tongue normal, teeth and gums normal, oropharynx normal Neck: Supple, no adenopathy; thyroid symmetric, normal size, no bruits Back: Normal exam. No SI tenderness. Normal modified Forrest's . Normal ROM all directions cervical and lumbar spine. Lungs: Lungs clear to auscultation. No wheezing, rhonchi, rales. Heart: RRR without murmur, gallop, or rubs. No ectopy Abdomen: Normal abdominal exam, Abdomen soft, non-tender. Bowel sounds normal. No masses, organomegaly Extremities: No deformities, edema, skin discoloration, clubbing or cyanosis. Good capillary refill. Musculoskeletal: Spine range of motion normal. Muscular strength intact. All joints are S0T0L0 Peripheral pulses: Normal Neuro: Gait normal. Reflexes normal and symmetric. Sensation grossly intact. Asses:(H20.9) Iritis (primary encounter diagnosis) Comment: Plan: XR THORACIC LIMITED 2V AP/LAT, XR LUMBAR GENERAL 3V AP/LAT/L5-S1, XR SACROILIAC JOINTS 2V AP PELVIS/FERGUESON (Z15.89) Blood test positive for human leukocyte antigen (HLA) B27 Comment: Plan: XR THORACIC LIMITED 2V AP/LAT, XR LUMBAR GENERAL 3V AP/LAT/L5-S1, XR SACROILIAC JOINTS 2V AP PELVIS/FERGUESON Two episodes of iritis in a HLA B27+ individual. No symptoms of signs of ankylosing spondylitis, sacroiliitis or other forms of arthritis. Obtain X-Rays of spine and SI joints. see back should patient develop musculoskeletal symptoms. Suggested regular follow up with ophthalmology and refer back for repeated episodes to coordinate DMARD and/or biologic therapy. I have communicated the results of this consult to Amalia Sung MD via the electronic medical record [facility] 08-12-2022 History of Presen t illness Narrative xref: Corinne Vu MD [address] [facility] [id number] I have been asked to see Amalia Mcpherson for Ankylosing Spondylitis by Corinne Vu MD [address] [facility] [address] HPI: Diagnosing of ankylosing spondylitis. Several episodes of iritis. She was found to have a + HLA B27. iritis treated with a steroid eye drop. affected vision in R eye. Currently not on any treatment. She occasionally awakens with [place], with soreness in rib area and hard to take a deep breath. Happens only now and then. Occasional aching in the knee cap 2 -3 years ago. There is occasional ankle swelling. no skin rashes or psoriasis. no bowel of bladder complaints. CTD ROS:constitutional: no fevers, chills, night sweats, sleep disturbance, daytime fatigue skin- no rashes or ulcers, no hair loss ent- no oral ulcers, dry mouth or dry eyes chest- no cough , wheezes heart- no chest pain , SOB, JOHNSON, orthopnea abd- no GI complaints, no nausea of vomiting, no constipation gu- No nocturia, no hematuria or change in urine stream or frequency joints- see HPI ext- no edema/ swelling. no raynaud's heme: no bleeding, no history of DVT; no history of recurrent infections. neuro-NEG for migraine headaches. Neg for numbness or tingling ACTIVE PROBLEM LIST Attention Deficit Disorder Without Mention of Hyperactivity Tobacco Use Disorder PAST MEDICAL HISTORY Diagnosis Date Attention deficit disorder with hyperactivity(314.01) PAST SURGICAL HISTORY Procedure Laterality Date NONE Social History Tobacco Use Smoking status: Every Day Smokeless tobacco: Never Tobacco comments: 3 cigs daily 01/05/14 Substance Use Topics Alcohol use: No Drug use: No FAMILY HISTORY Problem Relation Age of Onset None Mother None Father Diabetes Maternal Grandmother Stroke Maternal Grandfather Seizures Maternal Grandfather COPD Paternal Grandfather obj: PHYSICAL EXAMINATION: BP 140/90 Pulse 102 Temp 36.5 C (97.7 F) (Temporal) Wt 74.6 kg (164 lb 8 oz) LMP 10/19/2014 BMI 29.14 kg/m General appearance: Well appearing, alert, in no acute distress, well-hydrated, well nourished. Skin: Skin color, texture, turgor normal, no suspicious rashes or lesions Head: Normocephalic, no masses, lesions, tenderness or abnormalities Eyes: Anicteric sclera. Pupils are equally round and reactive to light. Extraocular movements are intact. Ears: External ears normal, canals clear Nose/Sinuses: Nares normal, septum midline, mucosa normal, no drainage or sinus tenderness Oropharynx: Lips, mucosa, and tongue normal, teeth and gums normal, oropharynx normal Neck: Supple, no adenopathy; thyroid symmetric, normal size, no bruits Back: Normal exam. No SI tenderness. Normal modified Forrest's . Normal ROM all directions cervical and lumbar spine. Lungs: Lungs clear to auscultation. No wheezing, rhonchi, rales. Heart: RRR without murmur, gallop, or rubs. No ectopy Abdomen: Normal abdominal exam, Abdomen soft, non-tender. Bowel sounds normal. No masses, organomegaly Extremities: No deformities, edema, skin discoloration, clubbing or cyanosis. Good capillary refill. Musculoskeletal: Spine range of motion normal. Muscular strength intact. All joints are S0T0L0 Peripheral pulses: Normal Neuro: Gait normal. Reflexes normal and symmetric. Sensation grossly intact. Asses:(H20.9) Iritis (primary encounter diagnosis) Comment: Plan: XR THORACIC LIMITED 2V AP/LAT, XR LUMBAR GENERAL 3V AP/LAT/L5-S1, XR SACROILIAC JOINTS 2V AP PELVIS/FERGUESON (Z15.89) Blood test positive for human leukocyte antigen (HLA) B27 Comment: Plan: XR THORACIC LIMITED 2V AP/LAT, XR LUMBAR GENERAL 3V AP/LAT/L5-S1, XR SACROILIAC JOINTS 2V AP PELVIS/FERGUESON Two episodes of iritis in a HLA B27+ individual. No symptoms of signs of ankylosing spondylitis, sacroiliitis or other forms of arthritis. Obtain X-Rays of spine and SI joints. see back should patient develop musculoskeletal symptoms. Suggested regular follow up with ophthalmology and refer back for repeated episodes to coordinate DMARD and/or biologic therapy. I have communicated the results of this consult to Amalia Sung MD via the electronic medical record documented in this encounter [facility]* Diagnosis Iritis Unspecified iridocyclitis Blood test positive for human leukocyte antigen (HLA) B27 [facility]* Diagnosis with uncertain viability, single or unspecified fetus- Primary 12 weeks gestation of state, incidental Tachycardia Tachycardia, unspecified Tobacco use disorder History of substance use Positive depression screening Other abnormal clinical finding documented in this encounter [facility] note* Diagnosis with uncertain viability, single or unspecified fetus- Primary [facility]* Diagnosis Encounter for screening for nuchal translucency- Primary 13 weeks gestation of state, incidental documented in this encounter [facility] note* Diagnosis Supervision of high risk in first trimester [O09.91]- Primary Unspecified high-risk 12 weeks gestation of state, incidental Nuchal translucency of fetus on ultrasound [Z36.82] Abnormal findings on screening documented in this encounter [facility] note* Diagnosis 16 weeks gestation of - Primary state, incidental Supervision of other high risk pregnancies, second trimester Encounter for screening of mother Unspecified screening Need for influenza vaccination Need for prophylactic vaccination and inoculation against influenza documented in this encounter [facility] note* Diagnosis Supervision of other high risk pregnancies, second trimester- Primary 23 weeks gestation of state, incidental documented in this encounter [facility] note* Diagnosis Encounter for anatomic survey- Primary 23 weeks gestation of state, incidental documented in this encounter [facility] note* Diagnosis Iritis of left eye- Primary [facility] Diagnosis 27 weeks gestation of - Primary state, incidental Supervision of other high risk pregnancies, second trimester Need for vaccination Need for prophylactic vaccination and inoculation against unspecified single disease documented in this encounter [facility] note* Diagnosis Supervision of other high risk , antepartum- Primary 29 weeks gestation of state, incidental Homelessness Lack of housing documented in this encounter [facility] for referral (narrative)* Diagnostic Procedure Only (Routine) - Closed Specialty Diagnoses / Procedures Referred By Contac t Referred To Contact XR IMAGING Diagnoses Iritis Blood test positive for human leukocyte antigen (HLA) B27 Procedures XR SACROILIAC JOINTS 2V AP PELVIS/FERGUESON RADIOLOGIC EXAMINATION SACROILIAC JNTS <3 [place] [id number] [place] [address] Xr Imaging Referral ID Status Reason Start Date Expiration Date V isits Requested Visits Authorized [id number] Closed Auto-Generate d Referral 08/12/2022 09/11/2023 1 1 * Diagnostic Procedure Only (Routine) - Closed Specialty Diagnoses / Procedures Referred By Contac t Referred To Contact XR IMAGING Diagnoses Iritis Blood test positive for human leukocyte antigen (HLA) B27 Procedures XR LUMBAR GENERAL 3V AP/LAT/L5-S1 RADEX SPINE LUMBOSACRAL 2/3 [place] [address] [place] [address] Xr Imaging Referral ID Status Reason Start Date Expiration Date V isits Requested Visits Authorized [id number] Closed Auto-Generate d Referral 08/12/2022 09/11/2023 1 1 * Diagnostic Procedure Only (Routine) - Closed Specialty Diagnoses / Procedures Referred By Contac t Referred To Contact XR IMAGING Diagnoses Iritis Blood test positive for human leukocyte antigen (HLA) B27 Procedures XR THORACIC LIMITED 2V AP/LAT RADEX SPINE THORACIC 2 [place] [address] [place] [address] Xr Imaging Referral ID Status Reason Start Date Expiration Date V isits Requested Visits Authorized [id number] Closed Auto-Generate d Referral 08/12/2022 09/11/2023 1 1 [facility] for referral (narrative)* Diagnostic Procedure Only (Routine) - Closed Specialty Diagnoses / Procedures Referred By Contac t Referred To Contact XR IMAGING Diagnoses Iritis Blood test positive for human leukocyte antigen (HLA) B27 Procedures XR SACROILIAC JOINTS 2V AP PELVIS/FERGUESON RADIOLOGIC EXAMINATION SACROILIAC JNTS <3 [place] [address] [place] [address] Xr Imaging Referral ID Status Reason Start Date Expiration Date V isits Requested Visits Authorized [id number] Closed Auto-Generate d Referral 08/12/2022 09/11/2023 1 1 * Diagnostic Procedure Only (Routine) - Closed Specialty Diagnoses / Procedures Referred By Contac t Referred To Contact XR IMAGING Diagnoses Iritis Blood test positive for human leukocyte antigen (HLA) B27 Procedures XR LUMBAR GENERAL 3V AP/LAT/L5-S1 RADEX SPINE LUMBOSACRAL 2/3 [place] [address] [place] [id number] Xr Imaging Referral ID Status Reason Start Date Expiration Date V isits Requested Visits Authorized [id number] Closed Auto-Generate d Referral 08/12/2022 09/11/2023 1 1 * Diagnostic Procedure Only (Routine) - Closed Specialty Diagnoses / Procedures Referred By Contac t Referred To Contact XR IMAGING Diagnoses Iritis Blood test positive for human leukocyte antigen (HLA) B27 Procedures XR THORACIC LIMITED 2V AP/LAT RADEX SPINE THORACIC 2 [place] [address] [place] [address] Xr Imaging Referral ID Status Reason Start Date Expiration Date V isits Requested Visits Authorized [id number] Closed Auto-Generate d Referral 08/12/2022 09/11/2023 1 1 [facility] for referral (narrative)* Diagnostic Procedure Only (Routine) - Pending Review Specialty Diagnoses / Procedures Referred By Contac t Referred To Contact [facility] Diagnoses with uncertain viability, single or unspecified fetus Procedures OBSTETRIC ULTRASOUND WHI US PREG UTERUS AFTER 1ST TRIMEST GESTATION Marcelle Albarran APRN.CASER UP [address] [place] [address] [id number] [place] [address] Referral ID Status Reason Start Date Expiration Date Visits Requested Visits Authorized [id number] Pending Review Auto-Generat ed Referral 03/19/2023 03/18/2024 1 1 * Diagnostic Procedure Only (Routine) - Authorized Specialty Diagnoses / Procedures Referred By Contac t Referred To Contact [facility] Diagnoses 12 weeks gestation of Procedures NUCHAL TRANSLUCENCY WHI US NUCHAL TRANSLUCENCY 1ST GESTATION Marcelle Albarran APRN.CASER UP [address] [place] [address] [facility] [address] [place] [address] Referral ID Status Reason Start Date Expiration Date Visits Requested Visits Authorized [id number] Authorized Auto-Generat ed Referral 03/19/2023 03/18/2024 1 1 * Consult, Test, Treat (Routine) - Authorized Specialty Diagnoses / Procedures Referred By Contac t Referred To Contact Diagnoses Tachycardia Procedures CONSULT TO MATERNAL MEDI OFFICE/OUTPATIENT NEW HIGH MDM 60-74 MINUTES Marcelle Albarran APRN.[facility]ER [facility] [address] [place] [address] Referral ID Status Reason Start Date Expiration Date Visits Requested Visits Authorized [id number] Authorized PCP Requested Referral Auto-Generate d Referral 03/19/2023 03/18/2024 1 1 [facility] Diagnostic Procedure Only (Routine) - Authorized Specialty Diagnoses / Procedures Referred By Contchyna t Referred To Contact [facility] Diagnoses Supervision of other high risk , antepartum Procedures OBSTETRIC ULTRASOUND WHI US PREG UTERUS AFTER 1ST TRIMEST GESTATION Mallorie Means APRN.[facility]ER [facility] [address] [place] [address] [facility] [address] [place] [address] Referral ID Status Reason Start Date Expiration Date Visits Requested Visits Authorized [id number] Authorized Auto-Generat ed Referral 07/16/2024 [address] [facility] Health Concerns Problem Noted Date Diagnosed Date [facility] Education - COMMON 03/19/2023 Education - [place] 03/19/2023 Problem Noted Date Diagnosed Date [facility] Education - COMMON 03/19/2023 Education - [place] 03/19/2023 Problem Noted Date Diagnosed Date [facility] Education - COMMON 03/19/2023 Education - [place] 03/19/2023 Problem Noted Date Diagnosed Date [facility] Education - COMMON 03/19/2023 Education - [place] 03/19/2023 Problem Noted Date Diagnosed Date [facility] Education - COMMON 03/19/2023 Education - [place] 03/19/2023 Problem Noted Date Diagnosed Date [facility] Education - [place]ON 03/19/2023 Education - [place] 03/19/2023 Problem Noted Date Diagnosed Date [facility] Education - COMMON 03/19/2023 Education - [place] 03/19/2023 Problem Noted Date Diagnosed Date [facility] Education - COMMON 03/19/2023 Education - [place] 03/19/2023 Problem Noted Date Diagnosed Date [facility] Education - [facility] 03/19/2023 Education - [place] 03/19/2023 Problem Noted Date Diagnosed Date [facility] Education - [facility] 03/19/2023 Education - [place] 03/19/2023 Problem Noted Date Diagnosed Date [facility] Education - [facility] 03/19/2023 Education - [place] 03/19/2023 Problem Noted Date Diagnosed Date [facility] Education - [facility] 03/19/2023 Education - [place] 03/19/2023 Summary Purpose Family History No Family History Records Found Advance Directives No Advanced Directives Records Found Additional Source Comments Source Comments (unrecognize d section and content) In the event this informatio n is protected by the Federal Confidentiality of Alcohol and Drug Abuse Patient Records regulations: The Federal rules restrict any use of the information to criminally investigate or prosecute any alcohol or drug abuse patient.[facility] the event this information is protected by the Federal Confidentiality of Alcohol and Drug Abuse Patient Records regulations: The Federal rules restrict any use of the information to criminally investigate or prosecute any alcohol or drug abuse patient.[facility] the event this information is protected by the Federal Confidentiality of Alcohol and Drug Abuse Patient Records regulations: The Federal rules restrict any use of the information to criminally investigate or prosecute any alcohol or drug abuse patient.[facility] the event this information is protected by the Federal Confidentiality of Alcohol and Drug Abuse Patient Records regulations: The Federal rules restrict any use of the information to criminally investigate or prosecute any alcohol or drug abuse patient.[facility] the event this information is protected by the Federal Confidentiality of Alcohol and Drug Abuse Patient Records regulations: The Federal rules restrict any use of the information to criminally investigate or prosecute any alcohol or drug abuse patient.[facility] the event this information is protected by the Federal Confidentiality of Alcohol and Drug Abuse Patient Records regulations: The Federal rules restrict any use of the information to criminally investigate or prosecute any alcohol or drug abuse patient.[facility] the event this information is protected by the Federal Confidentiality of Alcohol and Drug Abuse Patient Records regulations: The Federal rules restrict any use of the information to criminally investigate or prosecute any alcohol or drug abuse patient.[facility] the event this information is protected by the Federal Confidentiality of Alcohol and Drug Abuse Patient Records regulations: The Federal rules restrict any use of the information to criminally investigate or prosecute any alcohol or drug abuse patient.[facility] the event this information is protected by the Federal Confidentiality of Alcohol and Drug Abuse Patient Records regulations: The Federal rules restrict any use of the information to criminally investigate or prosecute any alcohol or drug abuse patient.[facility] the event this information is protected by the Federal Confidentiality of Alcohol and Drug Abuse Patient Records regulations: The Federal rules restrict any use of the information to criminally investigate or prosecute any alcohol or drug abuse patient.[facility] the event this information is protected by the Federal Confidentiality of Alcohol and Drug Abuse Patient Records regulations: The Federal rules restrict any use of the information to criminally investigate or prosecute any alcohol or drug abuse patient.[facility] the event this information is protected by the Federal Confidentiality of Alcohol and Drug Abuse Patient Records regulations: The Federal rules restrict any use of the information to criminally investigate or prosecute any alcohol or drug abuse patient.[facility] the event this information is protected by the Federal Confidentiality of Alcohol and Drug Abuse Patient Records regulations: The Federal rules restrict any use of the information to criminally investigate or prosecute any alcohol or drug abuse patient.[facility] the event this information is protected by the Federal Confidentiality of Alcohol and Drug Abuse Patient Records regulations: The Federal rules restrict any use of the information to criminally investigate or prosecute any alcohol or drug abuse patient.[facility] Care Teams (unrecognized sec tion and content) Predator Control Trapper Relationship Specialty Start Date End Date Bharath Nix NP [address] [place] [address] PCP - General Family Medicine 08/12/22 Predator Control Trapper Relationship Specialty Start Date End Date Bharath Nix NP PCP - General Family Medicine 08/12/22 Predator Control Trapper Relationship Specialty Start Date End Date Bharath Nix NP PCP - General Family Medicine 08/12/22 Predator Control Trapper Relationship Specialty Start Date End Date Bharath Nix NP PCP - General Family Medicine 08/12/22 Predator Control Trapper Relationship Specialty Start Date End Date Bharath Nix NP PCP - General Family Medicine 08/12/22 Predator Control Trapper Relationship Specialty Start Date End Date Bharath Nix NP PCP - General Family Medicine 08/12/22 Predator Control Trapper Relationship Specialty Start Date End Date Bharath Nix NP PCP - General Family Medicine 08/12/22 Predator Control Trapper Relationship Specialty Start Date End Date Bharath Nix NP PCP - General Family Medicine 08/12/22 Corinne Vu [address] [place], [place] [address] Referring Ophthalmology 06/03/23 Predator Control Trapper Relationship Specialty Start Date End Date Bharath Nix NP PCP - General Family Medicine 08/12/22 Corinne Vu [address] [place] [address] Referring Ophthalmology 06/03/23 Predator Control Trapper Relationship Specialty Start Date End Date Bharath Nix NP PCP - General Family Medicine 08/12/22 Corinne Vu [address] [place] [address] Referring Ophthalmology 06/03/23 Predator Control Trapper Relationship Specialty Start Date End Date Bharath Nix NP PCP - General Family Medicine 08/12/22 Corinne Vu [address] [place] [address] Referring Ophthalmology 06/03/23 Predator Control Trapper Relationship Specialty Start Date End Date Bharath Nix NP PCP - General Family Medicine 08/12/22 Corinne Vu [address] [place] [address] Referring Ophthalmology 06/03/23 Predator Control Trapper Relationship Specialty Start Date End Date Bharath Nix NP PCP - General Family Medicine 08/12/22 Corinne Vu [address] [place] [address] Referring Ophthalmology 06/03/23 Reason for Visit (unrecogniz ed section and content) Specialty Diagnoses / Procedures Referred By Jamie torres Referred To Contact XR IMAGING Diagnoses Iritis Blood test positive for human leukocyte antigen (HLA) B27 Procedures XR SACROILIAC JOINTS 2V AP PELVIS/FERGUESON RADIOLOGIC EXAMINATION SACROILIAC JNTS <3 [place] [address] [place] [address] Xr Imaging Referral ID Status Reason Start Date Expiration Date V isits Requested Visits Authorized [id number] Closed Auto-Generate d Referral 08/12/2022 09/11/2023 1 1 Reason Comments Initial OB Visit Reason Comments Orders Reason Comments US Specialty Diagnoses / Procedures Referred By Contac t Referred To Contact [facility] Diagnoses 12 weeks gestation of Procedures NUCHAL TRANSLUCENCY WHI US NUCHAL TRANSLUCENCY 1ST GESTATION Marcelle Albarran APRN.[facility]ER [facility] [address] [place] [address] [address] Referral ID Status Reason Start Date Expiration Date V isits Requested Visits Authorized [id number] Closed Auto-Generate d Referral 03/19/2023 03/18/2024 1 1 Reason Onset Date Comments Care 04/16/2023 Immunizations 04/16/2023 Flu vaccination Reason Onset Date Comments Care 06/03/2023 Specialty Diagnoses / Procedures Referred By Contac t Referred To Contact [facility] Diagnoses with uncertain viability, single or unspecified fetus Procedures OBSTETRIC ULTRASOUND WHI US PREG UTERUS AFTER 1ST TRIMEST / GESTATION Marcelle Albarran APRN.[facility] [address] [place] [address] [address] Referral ID Status Reason Start Date Expiration Date V isits Requested Visits Authorized [id number] Closed Auto-Generate d Referral 03/19/2023 03/18/2024 1 1 Reason Comments PRAF Reason Onset Date Comments Care 06/30/2023 Reason Onset Date Comments Care 07/17/2023 INFORMATION SOURCE (unrecogn ized section and content) FOR RECORDS PERTAINING TO PATIENTS WHO ARE OR HAVE BEEN ENROLLED IN A CHEMICAL DEPENDENCY/SUBSTANCEABUSE PROGRAM, SOME INFORMATION MAY BE OMITTED. This clinical summary was aggregated from multiple sources. Caution should be exercised in using it in the provision of clinical care. This summary normalizes information from multiple sources, and as a consequence, information in this document may materially change the coding, format and clinical context of patient data. In addition, data may be omitted in some cases. CLINICAL DECISIONS SHOULD BE BASED ON THE PRIMARY CLINICAL RECORDS. [facility] [employer] [facility]. provides no warranty or guarantee of the accuracy or completeness of information in this document.
[2023-08-03 09:09] VITALS: BMI 32.8
[2023-08-03 09:11] VITALS: PULSE 86; O2SAT 98
[2023-08-03 09:13] VITALS: BP 123/75; PULSE 86; TEMP 36.8
--- NOTE | 2023-08-07 15:22 | OB.TRI.NOTE ---
HPI - General General Date of Admission: 08/03/23 Date of Service: 08/03/23 Chief Complaint: decreased FM HPI Narrative HARLEY LARA, is a 28 F who presents w/ decreased FM Maternal Data Information Final DUNG: 09/26/23 Gestational age: 32 2/7 PFSH PFSH Medical History Diarrhea Influenza A Nicotine dependence Obesity Tachycardia Home Medications vit no.95-ferrous fumarate 28 mg-folic acid 800 mcg tablet () 1 tab PO DAILY 08/03/23 [History Last Taken 08/01/23 09:00 1 TAB] Allergy/AdvReac Type Severity Reaction Status Date / Time sulfamethoxazole Allergy Hives Verified 08/03/23 09:10 [From Bactrim] trimethoprim [From Bactrim] Allergy Hives Verified 08/03/23 09:10 Family History Grandmother CAD (coronary artery disease) Aunt CAD (coronary artery disease) Aunt CAD (coronary artery disease) Other Cancer Diabetes Social History household members: none Smoking Status: Current every day smoker tobacco type: cigarettes Tobacco: How many years used: 5 alcohol intake: never History Elective abortions Hx Para 0 Spontaneous abortions Hx # Term Pregnancies Ectopic pregnancies Hx # Pregnancies Multiple births # of living children NST FHR Rate Baby A Baseline: 125 Variability:: Moderate Accelerations:: 15 x 15 Decelerations:: None NST Reactive:: Yes FHR Category:: Category I Uterine Activity:: no regular ctxs Assessment & Plan (1) 32 weeks gestation of : PLAN: 32-week high risk multigravida complaining of decreased movement. G2, P1. Reactive NST. Patient discharged home to follow-up with routine appointments or return as needed.
== END 2023-08-03 10:08 | disposition home or self-care (01) ==
LOC: WPOUT 09:04 → WP 09:04
PROVIDERS: PCP Nurse Practitioner Family; Referring Provider Advanced Practice Midwife; Visit Provider Advanced Practice Midwife
DX: O36.8130 Decreased fetal movements, third trimester, not applicable or unspecified (principal); Z3A.32 32 weeks gestation of pregnancy; O99.213 Obesity complicating pregnancy, third trimester; O99.333 Smoking (tobacco) complicating pregnancy, third trimester; F17.210 Nicotine dependence, cigarettes, uncomplicated
CPT/HCPCS: 59025; 59050; 99221; G0378

== ENCOUNTER 2023-09-09 05:25 | Emergency (ER) | payer MEDICAID, SELFPAY ==
[2023-09-09 05:26] VITALS: BP 138/80; PULSE 122; RESP 18; TEMP 35.3; O2SAT 98; BMI 33.0
--- NOTE | 2023-09-09 05:29 | EDS_ITS ---
HPI History of Present Illness Chief Complaint: Upper Extremity Injury Informant: patient Narrative Narrative: 2 days prior to arrival [id number] healthy 28-year-old female had a bag in her left hand and was about to use her keys to unlock the door to her home, when she tripped and fell, landing on the ground against her right hand with fingers flexed in and the mechanism she describes like she accidentally punched the ground. Since she has been having significant pain, swelling, bruising in the dorsum of the hand. She denies any other injuries. Patient is 37 weeks. She states her blood type is a positive. She is following with the [facility] [employer] group. She did not injure her abdomen in the fall. She states that since her fall 2 days ago, she has had no abdominal pain, cramping, vaginal discharge or bleeding. [facility] Medical History Diarrhea Influenza A Nicotine dependence Obesity Tachycardia Home Medications vit no.95-ferrous fumarate 28 mg-folic acid 800 mcg tablet () 1 tab PO DAILY 08/03/23 [History Last Taken 08/01/23 09:00 1 TAB] Allergy/AdvReac Type Severity Reaction Status Date / Time sulfamethoxazole Allergy Hives Verified 08/03/23 09:10 [From Bactrim] trimethoprim [From Bactrim] Allergy Hives Verified 08/03/23 09:10 Family History Grandmother CAD (coronary artery disease) Aunt CAD (coronary artery disease) Aunt CAD (coronary artery disease) Other Cancer Diabetes Social History household members: none Smoking Status: Current every day smoker tobacco type: cigarettes Tobacco: How many years used: 5 alcohol intake: never ROS ROS ED Constitutional Constitutional ED: Denies chills or fever(s) Musculoskeletal Musculoskeletal: Reports extremity pain; Denies neck pain Integumentary Denies Abrasions, rash or wounds Neurologic Neurologic: Denies paresthesias or weakness EXAM Physical Exam Const Positive well nourished and well developed General Appearance ED: well developed and NAD Neck full ROM and supple GI GI Narrative: Distended above the umbilicus consistent with third trimester . No signs of bruising or trauma. Nontender. Back/Spine normal ROM and normal to inspection Extremity Extremity Narrative: Significant swelling, with some ecchymosis and tenderness in the distal metacarpals 3, 4, and less at #5. She has full flexion intact of all finger FDP, FDS tendons. With regards to extension, she is not able to fully extend fingers 2-5 due to swelling, but when she forces it, her ring and little fingers splay from the index and middle fingers. Neuro oriented x3, no focal motor deficits and no sensory deficits noted Sensorium / Orientation: alert Psych mental status grossly normal and thought process normal Skin no wounds Rashes: no rashes MDM MDM MDM Narrative Medical decision making narrative: Three-view x-ray series of the right hand on my interpretation appears to show acute mildly angled fractures of metacarpal necks of #3 and 4, and what is probably an old angulated healed fracture of the neck of the fifth metacarpal. She was splinted see the procedure note. Nursing did heart tones, 140s. I discussed with nurse automotive parts person Indy Leo on for the [facility] group, she agrees that since the patient fell 2 days ago and has been asymptomatic and is Rh+, that she can safely be discharged home to call OB if she has any issues. I advised her to follow-up with soon as possible with orthopedics. Management Discussion w/another healthcare provider: [employer] (Indy Leo, [facility] [employer]) Procedures Upper Extremity Splints Upper Extremity Splint: Orthoglass and - (AP short arm splint from DIPJs just beyond the wrist, with fingers in neutral slightly flexed position, leaving uninjured thumb out; NVID after placement) Splint Fabrication: Fabricated Location: Right Discharge Plan Triage Chief Complaint: Upper Extremity Injury ED Provider: [facility] Dx/Rx/DC Orders Clinical Impression: Fall from slip, trip, or stumble, Closed fracture of metacarpal of right hand, Third trimester Instructions: Splint Care, ED Closed Hand Fracture (Adult) Prescriptions: No Action PNV cmb#95-ferrous fumarate-FA [] 28 mg iron- 800 mcg tablet 1 tab PO DAILY Primary Care Provider: Indy Nix NP Referrals: Nakul Riggs DO [Med Staff - Active Staff] - As soon as possible Boyd,Indy CELERY TIER, CELERY TIER-C [Primary Care Provider] - Disposition Disposition: Home, Self Care
--- NOTE | 2023-09-09 05:29 | RAD_ITS ---
EXAM: XR RIGHT HAND COMPLETE, 3 OR MORE VIEWS CLINICAL INDICATION: injury TECHNIQUE: Frontal, lateral and oblique views of the right hand. COMPARISON: No relevant prior studies available. FINDINGS: BONES/JOINTS: Angulated third, fourth and fifth metacarpal neck fractures. Preservation of the joint space. No sclerotic or destructive changes observed. SOFT TISSUES: Soft tissue swelling. No radiopaque foreign body. RAD/Hand Min 3 Views IMPRESSION: Angulated third, fourth and fifth metacarpal neck fractures. Electronically Signed: Tj Magana MD at 6:13 EST ,
[2023-09-09 05:31] VITALS: BP 138/80; PULSE 126; RESP 18; TEMP 35.3; O2SAT 99
--- OUTSIDE RECORDS SUMMARY | 2023-09-09 05:41 | XMS RPT_ITS | CCD ---
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 is designed to increase nutritional levels and safeguard the health and well-being of [facility] residents. www.Yappn National Domestic Violence Hotline- Call National Sexual Assault Hotline- Call National Suicide Prevention Hotline- Call 987 or Transportation If you have Medicaid insurance, please call the toll-free number on the back of your insurance card or the number noted below. Explain to the product support sales representative that you are in need of transportation. All OB visits, ultrasound appointments, all doctor visits, WIC appointments, trips to the pharmacy to pick remover medications, visits to the lab for blood work, and much more are covered. Call 3-658-869-RIDQ Childbirth Classes, Classes and Hospital Tours for [facility]: To register for in person classes, you can call or sign up online To register for classes by phone call: For [facility] Childbirth Education Department- [phone] For [facility] Childbirth Education Department- [phone] To register online: 1) go to [employer], type in search box; [email or web address]/[email or web address] 2) select your hospital 3) select view all upcoming classes (in blue box) 4) and select your class For help or if you have questions call [place] or [place] Education Department. documented in this encounter [facility] 06-09-2023 Note HNO ID: [id number] Author: Reginald Sung MD Service: ? Author [...] continue to improve (has follow up with forensic technician this ) then we wait to start Humira after delivery. She is not planning on . see back 3 months. Reginald Sung MD [facility] 06-09-2023 History of Presen t illness Narrative [...] continue to improve (has follow up with forensic technician this ) then we wait to start Humira after delivery. She is not planning on . see back 3 months. Reginald Sung MD documented in this encounter [facility] 06-04-2023 Miscellaneous Notes 2nd risk assessment form submitted 06/04/23 Katty Saldaña RN documented in this encounter [facility] 06-03-2023 Miscellaneous Notes Anatomy ultrasound reviewed. No abnormalities identified. Follow up as clinically indicated. Please place copy in ob chart. Drew Kramer MD documented in this encounter [facility] 06-03-2023 Miscellaneous Notes RR- VB No. LOF [...] Drew Kramer M.D. documented in this encounter [facility] 06-03-2023 Instructions Rosey Cotter Ma - 06/03/2023 8:47 AM EDT SEQUENTIAL SCREENINGS The [facility] offers sequential screenings for women who are [...] It will require an appointment with our missile technician. This is not an ultrasound performed [...] the above symptoms, contact our office at [phone] and ask to speak with a nurse. After hours, you can call doctors registry at [phone] OR call [facility] at [phone] and ask to have the doctor adult education manager paged. If you consider this an emergency, dial 4-3-6 or go to your nearest emergency department. NEED HELP? Are you dealing with a violent or abusive relationship? Are you a victim of rape or sexual assult? Call [facility] ([place]) 24 hour Crisis Hotline: 172.693.7813 or 530-775-7868. MANUAL Your Guide to a Healthy manual is now on-line. Visit [facility]org/HealthyPregn ancyGuide to download your free copy documented in this encounter [facility] 04-16-2023 Instructions Rosey Cotter Ma - 04/16/2023 1:25 PM EDT SEQUENTIAL SCREENINGS The [facility] offers sequential screenings for women who are [...] It will require an appointment with our missile technician. This is not an ultrasound performed [...] the above symptoms, contact our office at [phone] and ask to speak with a nurse. After hours, you can call doctors registry at [phone] OR call [facility] at [phone] and ask to have the doctor adult education manager paged. If you consider this an emergency, dial -2 or go to your nearest emergency department. NEED HELP? Are you dealing with a violent or abusive relationship? Are you a victim of rape or sexual assult? Call [facility] ([place]) 24 hour Crisis Hotline: 504.796.4067 or 374-456-7771. MANUAL Your Guide to a Healthy manual is now on-line. Visit [email or web address]org/HealthyPregn ancyGuide to download your free copy documented in this encounter [facility] 03-24-2023 Instructions Reanna Boothe LPN - 03/24/2023 11:41 AM EDT SEQUENTIAL TESTING PROCESS Sequential Screen First Trimester Today you are currently: 13w3d weeks 03/24/2023: Ultrasound and blood test. Sequential Screen Second Trimester (16-17 Weeks Gestation) When you are called with your results, the nurse will give the optimal draw dates for the Sequential screen second trimester. Blood testing can be done at any [facility] lab. Please report to the any vision therapist office front office assistant for the Sequential Part 2 requisition and [...] medicine office, for east side please call [phone] or for the West side call [phone] and ask for the the nurse. Thank you. documented in this encounter [facility] 03-24-2023 Miscellaneous Notes Patient here for First Trimester Screening. See ultrasound report for details. Options for genetic screening and diagnosis discussed with the patient. Patient opts for first trimester screening and the sequential screening protocol. Limitations of screening tests discussed with the patient. Vesna Huang APRN.LAYNEM Please sign order. Reanna Boothe LPN' documented in this encounter [facility] 03-20-2023 Note HNO ID: [id number] Author: Pricilla Abad MD Service: ? Author Type: Physician Type: Progress Notes Filed: 03/20/2023 1:11 PM Note Text: OB point of care ultrasound was performed. See imaging tab for details. Pricilla Mcbride MD [facility] 03-20-2023 History of Presen t illness Narrative OB point of care ultrasound was performed. See imaging tab for details. Pricilla Mcbride MD documented in this encounter [facility] 03-19-2023 Note HNO ID: [id number] Author: Alda Seo MSW Service: ? Author Type: Tannery Gummer Type: Progress Notes Filed: 03/20/2023 8:18 AM Note Text: Sw met with patient,patient mother, and patient boyfriend. Sw discussed local housing assistance agencies. [employer], and [facility] [employer]. Patient mother reports that patient has voucher from [employer] for $600 to help get started with deposit to find apt. Patient states I am tired and we have been sleeping on the street. Can we talk some other time. Sw noted that she would be brief. Discussed requesting from [facility] landlord list for rental options. Patient mom notes that she will help patient reach out to [facility] and see about landlord listing. Discussed also Community [employer] programs for help with transportation. Discussed with patient also that [employer] has transportation assistance to medical appts. Patient mom notes that she will help [facility] request new medical card. Patient is aware that she can then check with [employer] for transportation to medical appts. Patient mother notes that she has stayed at [employer] in the past and is not allowed to go back there. [facility] and patient mom notes that patient had [...] I am tired and ready to leave. [facility] 03-19-2023 Note HNO ID: [id number] Author: Marcelle Albarran APRN.JENNIFER Service: ? Author Type: Nurse Practitioner Type: Progress Notes Filed: 03/19/2023 4:13 PM Note Text: Grab Setter offered: Patient declines. Accompanied by mother and father of baby. INITIAL OB ASSESSMENT OB Provider: Marcelle Albarran CNP HPI: Harley is a 27 year old No obstetric [...] use: No Multivitamin with Folic acid: Yes Zoroastrianism or heritage: No Would refuse blood transfusion [...] harming myself has occurred to me. Never [place] Depression Scale Total 7 Feeling nervous, anxious [...] by mouth. choleca (more content not included)... [facility] 03-19-2023 History of Presen t illness Narrative Sw met with patient,patient mother, and patient boyfriend. Sw discussed local housing assistance agencies. [employer], and [employer]. Patient mother reports that patient has voucher from [employer] for $600 to help get started with deposit to find apt. Patient states I am tired and we have been sleeping on the street. Can we talk some other time. Sw noted that she would be brief. Discussed requesting from [facility] list for rental options. Patient mom notes that she will help patient reach out to [facility] and see about landlord listing. Discussed also Community Action programs for help with transportation. Discussed with patient also that [employer] has transportation assistance to medical appts. Patient mom notes that she will help patient call [employer] to request new medical card. Patient is aware that she can then check with [employer] for transportation to medical appts. Patient mother notes that she has stayed at [employer] in the past and is not allowed to go back there. Discussed [facility] [employer] and patient mom notes that patient had [...] ready to leave. documented in this encounter [facility] 03-19-2023 History of Presen t illness Narrative Grab Setter offered: Patient declines. Accompanied by mother and father of baby. INITIAL OB ASSESSMENT OB Provider: Marcelle Albarran CNP HPI: Harley is a 27 year old No obstetric [...] use: No Multivitamin with Folic acid: Yes Zoroastrianism or heritage: No Would refuse blood transfusion [...] harming myself has occurred to me. Never [place] Depression Scale Total 7 Feeling nervous, anxious [...] Your guide to a health and the Installation Technician. Discussed aneuploidy and carrier screening. Regarding aneuploidy [...] Marcelle Albarran APRN.CNP documented in this encounter [facility] 03-19-2023 Instructions Mary Aly MA - 03/19/2023 11:04 AM EDT Please select the following link to access the [facility] Your Guide to a Healthy . [email or web address] documented in this encounter [facility] 08-12-2022 History of Presen t illness Narrative Radiology Service Progress Note PATIENT NAME: Harley Mcpherson DATE OF SERVICE: August 12, 2022 [...] RT Nahomi(Freddy) August 12, 2022 11:44 AM documented in this encounter [facility] 08-12-2022 History of Presen t illness Narrative xref: Corinne Vu MD [address] [facility] [address] I have been asked to see Harley Mcpherson for Ankylosing Spondylitis by Corinne Vu MD [address] [facility] [address] HPI: Diagnosing of ankylosing spondylitis. Several episodes [...] communicated the results of this consult to Harley Sung MD via the electronic medical record documented in this encounter [facility] documented in this encounter [facility] note* Diagnosis Iritis Unspecified iridocyclitis Blood test positive for human leukocyte antigen (HLA) B27 documented in this encounter [facility] note* Diagnosis with uncertain viability, single or unspecified fetus- Primary 12 weeks gestation of state, incidental Tachycardia Tachycardia, unspecified Tobacco use disorder History of substance use Positive depression screening Other abnormal clinical finding documented in this encounter [facility] note* Diagnosis with uncertain viability, single or unspecified fetus- Primary documented in this encounter [facility] note* Diagnosis Encounter for screening for nuchal translucency- Primary 13 weeks gestation of state, incidental documented in this encounter [facility] note* Diagnosis Supervision of high risk in first trimester [O09.91]- Primary Unspecified high-risk 12 weeks gestation of state, incidental Nuchal translucency of fetus on ultrasound [Z36.82] Abnormal findings on screening documented in this encounter [facility] note* Diagnosis 16 weeks gestation of - Primary state, incidental Supervision of other high risk pregnancies, second trimester Encounter for screening of mother Unspecified screening Need for influenza vaccination Need for prophylactic vaccination and inoculation against influenza documented in this encounter [facility] note* Diagnosis Supervision of other high risk pregnancies, second trimester- Primary 23 weeks gestation of state, incidental documented in this encounter [facility] note* Diagnosis Encounter for anatomic survey- Primary 23 weeks gestation of state, incidental documented in this encounter [facility] note* Diagnosis Iritis of left eye- Primary documented in this encounter [facility] note* Diagnosis 27 weeks gestation of - Primary state, incidental Supervision of other high risk pregnancies, second trimester Need for vaccination Need for prophylactic vaccination and inoculation against unspecified single disease documented in this encounter [facility] note* Diagnosis Supervision of other high risk , antepartum- Primary 29 weeks gestation of state, incidental Homelessness Lack of housing documented in this encounter [facility] for referral (narrative)* Diagnostic Procedure Only (Routine) - Closed Specialty Diagnoses / Procedures Referred By Contac t Referred To Contact XR IMAGING Diagnoses Iritis Blood test positive for human leukocyte antigen (HLA) B27 Procedures XR SACROILIAC JOINTS 2V AP PELVIS/FERGUESON RADIOLOGIC EXAMINATION SACROILIAC JNTS <[place] [address] [place] [id number] Xr Imaging Referral ID Status Reason Start Date Expiration Date V isits Requested Visits Authorized [id number] Closed Auto-Generate d Referral 08/12/2022 09/11/2023 1 1 * Diagnostic Procedure Only (Routine) - Closed Specialty Diagnoses / [facility] Referred To Contact XR IMAGING Diagnoses Iritis Blood test positive for human leukocyte antigen (HLA) B27 Procedures XR LUMBAR GENERAL 3V AP/LAT/L5-S1 RADEX SPINE LUMBOSACRAL 2/3 [place] [address] [place] [address] Xr Imaging Referral ID Status Reason Start Date Expiration Date V isits Requested Visits Authorized [id number] Closed Auto-Generate d Referral 08/12/2022 09/11/2023 1 1 * Diagnostic Procedure Only (Routine) - Closed Specialty Diagnoses / Procedures [facility] Referred To Contact XR IMAGING Diagnoses Iritis Blood test positive for human leukocyte antigen (HLA) B27 Procedures XR THORACIC LIMITED 2V AP/LAT RADEX SPINE THORACIC 2 [place] [address] [place] [address] Xr Imaging Referral ID Status Reason Start Date Expiration Date V isits Requested Visits Authorized [id number] Closed Auto-Generate d Referral 08/12/2022 09/11/2023 1 1 [facility] Diagnostic Procedure Only (Routine) - Closed Specialty Diagnoses / Procedures [facility] Referred To Contact XR IMAGING Diagnoses Iritis Blood test positive for human leukocyte antigen (HLA) B27 Procedures XR SACROILIAC JOINTS 2V AP PELVIS/FERGUESON RADIOLOGIC EXAMINATION SACROILIAC JNTS <3 [place] [address] [place] [address] Xr Imaging Referral ID Status Reason Start Date Expiration Date V isits Requested Visits Authorized [id number] Closed Auto-Generate d Referral 08/12/2022 09/11/2023 1 1 * Diagnostic Procedure Only (Routine) - Closed Specialty Diagnoses / Procedures Referred By Contac t Referred To Contact XR IMAGING Diagnoses Iritis Blood test positive for human leukocyte antigen (HLA) B27 Procedures XR LUMBAR GENERAL 3V AP/LAT/L5-S1 RADEX SPINE LUMBOSACRAL 2/3 [place] [address] [place] [address] Xr Imaging Referral ID Status Reason Start Date Expiration Date V isits Requested Visits Authorized [id number] Closed Auto-Generate d Referral 08/12/2022 09/11/2023 1 1 * Diagnostic Procedure Only (Routine) - Closed Specialty Diagnoses / Procedures Referred By Contac t Referred To Contact XR IMAGING Diagnoses Iritis Blood test positive for human leukocyte antigen (HLA) B27 Procedures XR THORACIC LIMITED 2V AP/LAT RADEX SPINE THORACIC 2 [place] [address] [place] [address] Xr Imaging Referral ID Status Reason Start Date Expiration Date V isits Requested Visits Authorized [id number] Closed Auto-Generate d Referral 08/12/2022 09/11/2023 1 1 [facility] for referral (narrative)* Diagnostic Procedure Only (Routine) - Pending Review Specialty Diagnoses / Procedures Referred By Contac t Referred To Contact [facility] Diagnoses with uncertain viability, single or unspecified fetus Procedures OBSTETRIC ULTRASOUND WHI US PREG UTERUS AFTER 1ST TRIMEST GESTATION Marcelle Albarran APRN.CNP [address] [place] [place] [address] [place] [id number] [place] [address] Referral ID Status Reason Start Date Expiration Date Visits Requested Visits Authorized [id number] Pending Review Auto-Generat ed Referral 03/19/2023 03/18/2024 1 1 * Diagnostic Procedure Only (Routine) - Authorized Specialty Diagnoses / Procedures Referred By Contac t Referred To Contact [facility] Diagnoses 12 weeks gestation of Procedures NUCHAL TRANSLUCENCY WHI US NUCHAL TRANSLUCENCY GESTATION Marcelle Albarran APRN.CNP [address] [place] [address] [address] [address] [place] [address] Referral ID Status Reason Start Date Expiration Date Visits Requested Visits Authorized [id number] Authorized Auto-Generat ed Referral 03/19/2023 03/18/2024 1 1 * Consult, Test, Treat (Routine) - Authorized Specialty Diagnoses / Procedures Referred By Contac t Referred To Contact Diagnoses Tachycardia Procedures CONSULT TO MATERNAL MEDI OFFICE/OUTPATIENT NEW HIGH MDM 60-74 MINUTES Marcelle Albarran APRN.CNP [address] [place] [address] Referral ID Status Reason Start Date Expiration Date Visits Requested Visits Authorized [id number] Authorized PCP Requested Referral Auto-Generate d Referral 03/19/2023 03/18/2024 1 1 [facility] for referral (narrative)* Diagnostic Procedure Only (Routine) - Authorized Specialty Diagnoses / Procedures Referred By Contac t Referred To Contact [facility] Diagnoses Supervision of other high risk , antepartum Procedures OBSTETRIC ULTRASOUND WHI US PREG UTERUS AFTER 1ST TRIMEST GESTATION Anastacia Means APRN.CAUSTIC MIXER [address] [place] [address] [facility] [address] [place] [address] Referral ID Status Reason Start Date Expiration Date Visits Requested Visits Authorized [id number] Authorized Auto-Generat ed Referral 07/16/2024 5 1 [facility] Health Concerns Problem Noted Date Diagnosed Date [facility] CC Education - COMMON 03/19/2023 Education - [place] 03/19/2023 Problem Noted Date Diagnosed Date [facility] Education - COMMON 03/19/2023 Education - [place] 03/19/2023 Problem Noted Date Diagnosed Date [facility] Education - [facility] 03/19/2023 Education - [place] 03/19/2023 Problem Noted Date Diagnosed Date [facility] CC Education - COMMON 03/19/2023 Education - [place] 03/19/2023 Problem Noted Date Diagnosed Date [facility] - [facility] 03/19/2023 Education - [place] 03/19/2023 Problem Noted Date Diagnosed Date [facility] 03/19/2023 [facility] - [place] 03/19/2023 Problem Noted Date Diagnosed Date [facility] 03/19/2023 Education - [place] 03/19/2023 Problem Noted Date Diagnosed Date [facility] - [facility] 03/19/2023 Education - [place] 03/19/2023 Problem Noted Date Diagnosed Date [facility] 03/19/2023 Education - [place] 03/19/2023 Problem Noted Date Diagnosed Date [facility] 03/19/2023 Education - [place] 03/19/2023 Problem Noted Date Diagnosed Date [facility] 03/19/2023 Education - [place] 03/19/2023 Problem Noted Date Diagnosed Date [facility] - [facility] 03/19/2023 Education - [place] 03/19/2023 Summary Purpose Family History No Family [...] or prosecute any alcohol or drug abuse patient.[facility], IncIn the event this information is protected by the Federal Confidentiality of Alcohol and Drug Abuse Patient Records regulations: The Federal rules restrict any use of the information to criminally investigate or prosecute any alcohol or drug abuse patient.[facility], IncIn the event this information is protected by the Federal Confidentiality of Alcohol and Drug Abuse Patient Records regulations: The Federal rules restrict any use of the information to criminally investigate or prosecute any alcohol or drug abuse patient.[facility], IncIn the event this information is protected by the Federal Confidentiality of Alcohol and Drug Abuse Patient Records regulations: The Federal rules restrict any use of the information to criminally investigate or prosecute any alcohol or drug abuse patient.[facility], IncIn the event this information is protected by the Federal Confidentiality of Alcohol and Drug Abuse Patient Records regulations: The Federal rules restrict any use of the information to criminally investigate or prosecute any alcohol or drug abuse patient.[facility], IncIn the event this information is protected by the Federal Confidentiality of Alcohol and Drug Abuse Patient Records regulations: The Federal rules restrict any use of the information to criminally investigate or prosecute any alcohol or drug abuse patient.[facility], IncIn the event this information is protected by the Federal Confidentiality of Alcohol and Drug Abuse Patient Records regulations: The Federal rules restrict any use of the information to criminally investigate or prosecute any alcohol or drug abuse patient.[facility] IncIn the event this information is protected by the Federal Confidentiality of Alcohol and Drug Abuse Patient Records regulations: The Federal rules restrict any use of the information to criminally investigate or prosecute any alcohol or drug abuse patient.[facility] IncIn the event this information is protected by the Federal Confidentiality of Alcohol and Drug Abuse Patient Records regulations: The Federal rules restrict any use of the information to criminally investigate or prosecute any alcohol or drug abuse patient.[facility], IncIn the event this information is protected by the Federal Confidentiality of Alcohol and Drug Abuse Patient Records regulations: The Federal rules restrict any use of the information to criminally investigate or prosecute any alcohol or drug abuse patient.[facility], IncIn the event this information is protected by the Federal Confidentiality of Alcohol and Drug Abuse Patient Records regulations: The Federal rules restrict any use of the information to criminally investigate or prosecute any alcohol or drug abuse patient.[facility], IncIn the event this information is protected by the Federal Confidentiality of Alcohol and Drug Abuse Patient Records regulations: The Federal rules restrict any use of the information to criminally investigate or prosecute any alcohol or drug abuse patient.[facility], IncIn the event this information is protected by the Federal Confidentiality of Alcohol and Drug Abuse Patient Records regulations: The Federal rules restrict any use of the information to criminally investigate or prosecute any alcohol or drug abuse patient.[facility], IncIn the event this information is protected by the Federal Confidentiality of Alcohol and Drug Abuse Patient Records regulations: The Federal rules restrict any use of the information to criminally investigate or prosecute any alcohol or drug abuse patient.[facility] Care Teams (unrecognized sec tion and content) 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 Start Date End Date Indy Nix NP [address] [place] [address] PCP - General Family Medicine 08/12/22 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 Start Date End Date Indy Nix NP PCP - General Family Medicine 08/12/22 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 Start Date End Date Indy Nix NP PCP - General Family Medicine 08/12/22 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 Start Date End Date Indy Nix LÓPEZ PCP - General Family Medicine 08/12/22 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 Start Date End Date LorenaIndyLÓPEZ PCP - General Family Medicine 08/12/22 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 Start Date End Date Lorena Indy, NP PCP - General Family Medicine 08/12/22 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 Start Date End Date Kemar NixssLÓPEZ law PCP - General Family Medicine 08/12/22 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 Start Date End Date Kemar NixssLÓPEZ law PCP - General Family Medicine 08/12/22 Corinne Vu [address] [place] [address] Referring Ophthalmology 06/03/23 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 Start Date End Date LorenaIndyLÓPEZ PCP - General Family Medicine 08/12/22 Corinne Vu [address] [place] [address] Referring Ophthalmology 06/03/23 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 Start Date End Date Kemar NixssLÓPEZ law PCP - General Family Medicine 08/12/22 Corinne Vu [address] [place] [address] Referring Ophthalmology 06/03/23 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 Start Date End Date Indy Nix NP PCP - General Family Medicine 08/12/22 Corinne Vu [address] [place] [address] Referring Ophthalmology 06/03/23 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 Start Date End Date Indy Nix NP PCP - General Family Medicine 08/12/22 Corinne Vu [address] [place] [address] Referring Ophthalmology 06/03/23 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 Start Date End Date Indy Nix NP PCP - General Family Medicine 08/12/22 Corinne Vu [address] [place] [address] Referring Ophthalmology 06/03/23 Reason for Visit (unrecogniz ed section and content) Specialty Diagnoses / Procedures Referred By Jamie torres Referred To Contact XR IMAGING Diagnoses Iritis Blood test positive for human leukocyte antigen (HLA) B27 Procedures XR SACROILIAC JOINTS 2V AP PELVIS/FERGUESON RADIOLOGIC EXAMINATION SACROILIAC JNTS <[place] [address] [place] [address] Xr Imaging Referral ID Status Reason Start Date Expiration Date V isits Requested Visits Authorized [id number] Closed Auto-Generate d Referral 08/12/2022 09/11/2023 1 1 Reason Comments Initial OB Visit Reason Comments Orders Reason Comments US Specialty Diagnoses / Procedures Referred By Jamie torres Referred To Contact [facility] Diagnoses 12 weeks gestation of Procedures NUCHAL TRANSLUCENCY WHI US NUCHAL TRANSLUCENCY 1ST GESTATION Marcelle Albarran, IT TEACHER.[employer]USTIC M[employer]ER [address] [place] [address] [address] Referral ID Status Reason Start Date Expiration Date V isits Requested Visits Authorized [id number] Closed Auto-Generate d Referral 03/19/2023 03/18/2024 1 1 Reason Onset Date Comments Care 04/16/2023 Immunizations 04/16/2023 Flu vaccination Reason Onset Date Comments Care 06/03/2023 Specialty Diagnoses / Procedures Referred By Contac t Referred To Contact [facility] Diagnoses with uncertain viability, single or unspecified fetus Procedures OBSTETRIC ULTRASOUND WHI US PREG UTERUS AFTER 1ST TRIMEST GESTATION Marcelle Albarran, IT TEACHER.CAUSTIC MIXER [address] [place] [address] [address] Referral ID Status Reason Start Date Expiration Date V isits Requested Visits Authorized [id number] Closed Auto-Generate d Referral 03/19/2023 03/18/2024 1 [...] BE BASED ON THE PRIMARY CLINICAL RECORDS. [facility] [employer] [facility]. provides no warranty or guarantee of the accuracy or completeness of information in this document.
--- NOTE | 2023-09-09 06:00 | ED.RN ---
RN at bedside to obtain FHr. This RN sees movement as well as hearing it from the doppler. Doppler FHT range from 140-148. Mother also reports feeling the fetus move.
[2023-09-09 06:25] VITALS: BP 138/86; PULSE 125; RESP 18; O2SAT 99
== END 2023-09-09 06:26 | disposition home or self-care (01) ==
PROVIDERS: Emergency Provider Emergency Medicine; PCP Nurse Practitioner Family; Visit Provider Emergency Medicine
DX: S62.330A Displaced fracture of neck of second metacarpal bone, right hand, initial encounter for closed fracture (principal); O9A.213 Injury, poisoning and certain other consequences of external causes complicating pregnancy, third trimester; S62.332A Displaced fracture of neck of third metacarpal bone, right hand, initial encounter for closed fracture; S62.334A Displaced fracture of neck of fourth metacarpal bone, right hand, initial encounter for closed fracture; W18.09XA Striking against other object with subsequent fall, initial encounter; O99.333 Smoking (tobacco) complicating pregnancy, third trimester; F17.210 Nicotine dependence, cigarettes, uncomplicated; Z3A.37 37 weeks gestation of pregnancy
CPT/HCPCS: 29125; 73130; 99282

== ENCOUNTER 2023-09-11 10:05 | Outpatient (RCR) | payer MEDICAID, SELFPAY ==
--- NOTE | 2023-09-12 07:09 | HP.OTEVAL ---
Patient's Visit Information Visit Information Visit Information: HARLEY LARA is a 28 year old F, referred to Occupational Therapy by Dr. Nilay Nichols MD, with a diagnosis of closed fx of metacarpal right hand. Date of Evaluation: 09/11/23 Occupational Therapist: Natalie Soler, SHIRLENE/Carlos, CHT Subjective Subjective: This 28 year old female was referred to OT with dx of closed fx of metacarpal right hand- pt state she took a fall 3 days ago and caught herself with her hand- did go next day to get her hand x-ray and to ortho today- pt states she had issues with her initial splint. pt demo need for skilled OT services for custom orthosis to provide protection and support while fx is healing. Pain right hand: Current Pain Intensity: 2 Pain Intensity Range: 3 ROM ROM Comments: unable to formally test ROM of affected hand -will test when fx sites heal Edema Other: noted mild swelling right hand Quick DASH-Disab of Arm,Shoulder& Hand Quick DASH Score: [phone] Goals Goal:: pt will demo understanding of edema control oralia. by end of 1st session. Goal:: Pt will demo understanding of orthosis use and precautions by end of 1st session. Pt will return to clinic for orthosis adjustment. Rehabilitation General Assessment: pt arrives 3 days after right hand fx in need of custom orthosis to provide protection and support while her fx are healing. Today therapist noted bruising and limited ROM due to newly acquired fx. Therapist agata. custom orthosis to get pt in safe position to allow for metacarpal healing. Pt was instructed in skin care/precautions of using orthosis and ed to return to clinic for adj as swelling decreases and/or skin irritations. Rehabilitation Potential: Good Anticipated Interventions Anticipated Interventions: Orthoses Visit Plan Frequency: 1-2x /Week Duration: 2-4 Weeks General Plan: at this time pt will use orthosis until she is released for therapy at that time measurements will be taken and new goals and POC set. TEXT: Thank you for the opportunity to evaluate your patient. For Medicare and Medicare HMO plans, please review the plan of care and approve it. It will need to be FAXED BACK to us at [phone] for Medicare purposes. Please let me know if there are questions or concerns regarding this plan of care. Physician Signature: Date:
--- NOTE | 2024-02-27 08:44 | HP.OT.NRP ---
Patient Information Patient Information: HARLEY LARA was seen in my office for initial evaluation on 09/11/23. The following Plan of Care was established for this patient: POC Established Initial Frequency: 1-2x /Week Initial Duration: 2-4 Weeks Anticipated Interventions Anticipated Interventions: Orthoses Last Seen Last Seen: This patient was last seen in our office 09/11/23. Pertinent comments regarding their Occupational therapy will appear below: pt see for eval only. No further apts scheduled, due to time lapse in services by D/c. At this point I will be discontinuing this patient from occupational therapy. I would be happy to see this patient again in the future if found appropriate by the physician. Thank you! Natalie Soler, OTR/L, CHT
== END 2023-09-11 19:00 | disposition home or self-care (01) ==
LOC: OT 10:05
PROVIDERS: PCP Nurse Practitioner Family; Referring Provider Orthopaedic Surgery Sports Medicine; Visit Provider Orthopaedic Surgery Sports Medicine
DX: S62.309D Unspecified fracture of unspecified metacarpal bone, subsequent encounter for fracture with routine healing (principal)
CPT/HCPCS: 97165; 97760

== ENCOUNTER 2023-09-17 15:22 | Outpatient (CLI) | payer MEDICAID, SELFPAY ==
[2023-09-17 15:45] VITALS: BP 129/81; PULSE 118
[2023-09-17 15:47] VITALS: PULSE 124; O2SAT 98
[2023-09-17 15:52] VITALS: PULSE 106; O2SAT 97
[2023-09-17 15:57] VITALS: PULSE 100; O2SAT 98
[2023-09-17 16:15] VITALS: PULSE 58; O2SAT 78
[2023-09-17 16:38] LABS: ROM Internal Control Test YES-OK TO RESULT pt. (Internal QC); ROM Patient Test Negative (Negative)
--- NOTE | 2023-09-17 16:46 | OB.TRI.NOTE ---
HPI - General General Date of Service: 09/17/23 HPI Narrative HARLEY LARA, is a 28 F @ 38+ weeks who presents c/o ? SROM PFSH PFSH Medical History Diarrhea Influenza A Nicotine dependence Obesity Tachycardia Home Medications vit no.95-ferrous fumarate 28 mg-folic acid 800 mcg tablet () 1 tab PO DAILY 08/03/23 [History Last Taken 08/01/23 09:00 1 TAB] Allergy/AdvReac Type Severity Reaction Status Date / Time sulfamethoxazole Allergy Hives Verified 09/11/23 09:36 [From Bactrim] trimethoprim [From Bactrim] Allergy Hives Verified 09/11/23 09:36 Family History Grandmother CAD (coronary artery disease) Aunt CAD (coronary artery disease) Aunt CAD (coronary artery disease) Other Cancer Diabetes Social History household members: none Smoking Status: Current every day smoker tobacco type: cigarettes Tobacco: How many years used: 5 alcohol intake: never History Elective abortions Hx Para 0 Spontaneous abortions Hx # Term Pregnancies Ectopic pregnancies Hx # Pregnancies Multiple births # of living children Physical Exam Narrative VE: 250/ NST FHR Rate Baby A Baseline: 135 Variability:: Moderate Accelerations:: 15 x 15 Decelerations:: None NST Reactive:: Yes FHR Category:: Category I Uterine Activity:: irregular Assessment & Plan (1) False labor after 37 completed weeks of gestation: PLAN: Plan @ 38+ weeks, false labor, membranes intact dc home Membranes intact ROMPLUS was negative
[2023-09-17 16:48] VITALS: BMI 32.6
[2023-09-17 16:52] VITALS: BP 129/74; PULSE 93
--- NOTE | 2023-09-18 10:52 | OB.TRI.NOTE ---
HPI - General General Date of Admission: 09/17/23 Date of Service: 09/17/23 Chief Complaint: vaginal discharge HPI Narrative HARLEY LARA, is a 28 F who presents w/ r/o SROM. Maternal Data Information Final DUNG: 09/26/23 Gestational age: 38 6/7 PFSH PFSH Medical History Diarrhea Influenza A Nicotine dependence Obesity Tachycardia Home Medications vit no.95-ferrous fumarate 28 mg-folic acid 800 mcg tablet () 1 tab PO DAILY 08/03/23 [History Last Taken 08/01/23 09:00 1 TAB] Allergy/AdvReac Type Severity Reaction Status Date / Time sulfamethoxazole Allergy Hives Verified 09/11/23 09:36 [From Bactrim] trimethoprim [From Bactrim] Allergy Hives Verified 09/11/23 09:36 Family History Grandmother CAD (coronary artery disease) Aunt CAD (coronary artery disease) Aunt CAD (coronary artery disease) Other Cancer Diabetes Social History household members: none Smoking Status: Current every day smoker tobacco type: cigarettes Tobacco: How many years used: 5 alcohol intake: never History Elective abortions Hx Para 0 Spontaneous abortions Hx # Term Pregnancies Ectopic pregnancies Hx # Pregnancies Multiple births # of living children NST FHR Rate Baby A Baseline: 125 Variability:: Moderate Accelerations:: 15 x 15 Decelerations:: None NST Reactive:: Yes FHR Category:: Category I Uterine Activity:: irreg ctxs Assessment & Plan (1) False labor after 37 completed weeks of gestation: PLAN: No evidence of SROM or labor. F/u prn or as scheduled. (2) Supervision of other high risk pregnancies, third trimester:
== END 2023-09-17 16:55 | disposition home or self-care (01) ==
LOC: WPOUT 15:32 → WP 15:33
PROVIDERS: PCP Nurse Practitioner Family; Referring Provider Obstetrics & Gynecology; Visit Provider Obstetrics & Gynecology
DX: O47.1 False labor at or after 37 completed weeks of gestation (principal); Z3A.38 38 weeks gestation of pregnancy; F17.210 Nicotine dependence, cigarettes, uncomplicated; O99.333 Smoking (tobacco) complicating pregnancy, third trimester
CPT/HCPCS: 59025; 59050; 84112; 99221; G0378

== ENCOUNTER 2023-09-30 06:55 | Inpatient (IN) | payer MEDICAID, SELFPAY ==
[2023-09-30] VITALS (53 sets, daily range): BP systolic 114–183; BP diastolic 64–100; PULSE 79–125; TEMP 36.6–37.8; O2SAT 92–100; BMI 33.5
--- OUTSIDE RECORDS SUMMARY | 2023-09-30 07:18 | XMS RPT_ITS | CCD ---
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 community and surrounding areas. Do not hesitate to contact their offices, many are offering virtual visits during this time. 4-475-9-JUQV4RROH - [place] Maternal Mental Health Hotline If you are in suicidal crisis, please call or text 4-631-280-TALK ( ) or visit the National Suicide Prevention Lifeline website. mchb.[facility].gov [facility] Behavioral Health Psychology, Psychiatry, Counseling Connect with therapist/ can do virtual visits [phone] Referral to the [facility] To schedule an appointment, please call the Center for Behavioral Health Appointment Line: [phone] option 1 [facility] - [place], [place] [address] [place] [address] [facility] [address] [place] [address] [facility] [address] [place] [address] [facility] [address] [place] [address] Lucas Bingham MD [address] [place], [place] [id number] [facility] [address] [facility], [address] [place] [address] [facility] [address] [place] [address] [facility] [place] / [place] [phone]/ [phone] Nohemi Robledo [address] [facility] [phone] [facility] Counseling and Mediation [place] / [place] [phone] Behavioral health services of [facility] [address] [place] [address]/ [place] [phone] Tish Mckeon, NILDA, CLC [facility] Therapy Workshops, telehealth and at home visits. [phone] [facility] counseling de smet 20 locations [place], [place], [place], [place], [place], [place], [place], [facility], [place], [place], [place], [place], [place], [place], [facility], [place], [place] ,[facility], [place], [place],[facility], [facility], [place], [facility], [place], [place] www.[facility] [phone] Psychotherapy resources outside of [facility] are listed below [facility] The [facility]ken Herald Psychotherapy Web: https://www.Merlin Diamonds/ Support International Online Provider Directory https://Affinegy/ Insight Counseling https://Expanite/ Partners for Behavioral Health and Wellness Web: https://Precision Biopsy/ DOCUSYS for Effective Living Web: https://www.Aruba Networksliving.LetMeGo / LifeStance Web: https://Kappa Prime.LetMeGo/location/ [facility]/[place]/ Signature Health Web: https://www.Kardiumhealthinc.o / [facility] Web: https://CouponCabin.org/ Recovery Resources Mental health and substance abuse help Web: https://www.Mico Toy & Co.org & RESOURCES Support International Direct peer support and connection to professional resources Non-Emergency Helpline Phone: / Text: 204.547.8366 Web: https://www..net/ Online Provider Directory: https://Trice Medical.LetMeGo/ Online Support Meetings: https://www..net/get-h elp/nhj-cqkhqn-wrnwhud-meetings/ ANALILIA Baby and Bed Placement Coordinator Services Web: https://VMG Media/ Control Medical Technology Expert information on medication use during and Text: [phone] Web: https://Cognitive Electronics/ NATIONAL REGISTRY FOR PSYCHIATRIC MEDICATIONS Currently studying the safety of antidepressants, ADHD medications and atypical antipsychotics taken during TO PARTICIPATE CALL TOLL-FREE: Web: https://[facility].org/r esearch/pregnancyregistry/ Support Groups: [facility]- Follow on facebook Baby Bistro support group led by [facility] department [facility] Mamas - Support Group [facility].org The POEM support group [phone] Www.poRenmatixonline.org Follow on facebook - POJANE subramaniangoodwni chapter Online support meetings PSI https://www..net/get-h elp/mqk-fezyia-chfdkya-meetings/ [facility] mommy and me virtual support group 11:30-1pm Support for mothers and new babies and toddlers [place] childbirth education: Childbirth @cc.org or call [phone] CRISIS: CRISIS HOTLINE [phone], 911 or go to the nearest [facility] [phone] / [facility] [phone] https://www.[facility] centerrb.org Crisis text line text the word HOME to [address] [facility] [address] [place] [address] [facility] [address] www.The GunBox Julia Jimenez clinical counseling [address] [facility] [address] [place] [address] www.Winking Entertainment.LetMeGo [phone] Holding space psychotherapy Betty Velazquez PATHOLOGIST ASSISTANT NAIL KEGGER-S [address] [facility] www.SingleFeed [phone]/ [place] [phone] They all offer virtual. All work with trauma Support groups Online support meetings PSI https://www..net/get-h elp/gwi-idqtyv-mrnzztj-meetings/ Here are the support groups they offer: Support of parents of 1 to 4 years old children POEM ( Outreach and Encouragement for Moms) offers free support for mothers experiencing depression, anxiety, and other mood and anxiety disorders. Masks are recommended but not required. No pre-registration required. Babies in arms welcome. meetings now take place on the and Friday of each month Location: [facility] [address] [place] [address] Room 122 (library room) 7-8:00 p.m. When you enter the [facility] parking lot off of [address] the entrance door closest to our meeting room is on the front of the building toward the right. For those who are more comfortable with a virtual platform, POEM offers online support group options several days of the week. To register for an online group or to find out more about POEM, website at: https://aohio.org/get-help/[facility] county medical centergsuwl-iokvff-ynthzg/poem-service s/ offer a confidential helpline: private Autrement (HotelHotel) group is called POJANE [facility] Here are the groups they offer: Traumatic childbirth resources: Http://pattch.org/ https://www.PowervationfelicityEndorse.me.LetMeGo/ documented in this encounter [facility] 06-30-2023 Note HNO ID: [id number] Author: Sriram Huitron Cma Service: ? Author Type: ? Type: Progress Notes Filed: 07/06/2023 11:48 AM Note Text: Patient identified by name and date of . Harley Helen MarinoKy presents today for a vaccination of Tdap. Patient denies an allergy to latex: yes Patient denies a severe (life-threatening) allergy to a previous dose of Tdap, DTP, DTaP, DT or Td vaccine. Yes Patient denies history of epilepsy or neurological problems: Yes Patient is afebrile and denies being moderately or severely ill: Yes Patient denies history of Guillain-Hayward Syndrome (a severe paralytic illness): Yes Tdap Adacel injection was given without incident. See immunizations for details of immunizations administered today. VIS sheet provided: Yes Provider Indy Leo CNM was present in office at time of injection. Sriram Huitron [facility] 06-30-2023 Miscellaneous Notes Images from [...] Does not want to go to [facility]. The women are not nice there. When asked if staying in mother's home is an option, pt's mother shook her head no. Pt's mother has custody of pt's 6 yr old daughter. Began crying again when discussing FOB He's a heroin addict and he's in penitentiary Denies headache, visual changes, chest pain, shortness [...] with more than 50% of the total jvzg-ke-bcws time of the visit in counseling / coordination of care. Freddy Alvarez [facility] TEACHING SENIOR PRINCIPAL ARCHITECT NOTE OF PERSONAL INVOLVEMENT IN CARE: I have interviewed the patient and updated the midwifery student's PFS history, and ROS as necessary. I have re-performed the HPI, Physical Examination, Assessment and Plan. Indy Leo APRN.CNM SBIRT Harley Mcpherson was given the 4P's screening tool. Harley answered as follows: OB [...] Indy Leo APRN.CNM documented in this encounter [facility] 06-30-2023 History of Presen t illness Narrative [...] severely ill: Yes Patient denies history of Guillain-Hayward Syndrome (a severe paralytic illness): Yes Tdap Adacel injection was given without incident. See immunizations for details of immunizations administered today. VIS sheet provided: Yes Provider Indy Leo CNM was present in office at time of injection. Sriram Huitron Cma documented in this encounter [facility] 06-30-2023 Instructions Indy Leo APRN.CNM - 06/30/2023 1:10 PM EST SEQUENTIAL SCREENINGS The [facility] offers sequential screenings for women who are [...] It will require an appointment with our piano technician. This is not an ultrasound performed [...] the above symptoms, contact our office at [phone] and ask to speak with a nurse. After hours, you can call doctors registry at [phone] OR call [facility] at [phone] and ask to have the doctor cardiac rehabilitation specialist paged. If you consider this an emergency, dial 9--6 or go to your nearest emergency department. NEED HELP? Are you dealing with a violent or abusive relationship? Are you a victim of rape or sexual assult? Call [facility] ([place]) 24 hour Crisis Hotline: 514.215.2257 or 108-241-0879. MANUAL Your Guide to a Healthy manual is now on-line. Visit [facility].org/HealthyPregn ancyGuide to download your free copy WIC- Call [phone] WIC is the Special Supplemental Nutrition Program for Women, Infants, and Children. WIC helps eligible and women, women who recently had a baby, infants, and children up to 5 years of age. For [facility] . Located in [address] Department- Call [phone] To get information for the Cribs for Kids Program and WIC, call or visit their website (https://www.[facility].org/) [facility] The [facility] safeguards the health of its residents by: promoting healthy lifestyles through education, preventing and monitoring disease, and protecting and preparing against environmental public health risks www.[facility] community hospitalCoachBase.org Care Center of [facility]- Call [phone] They provide free material mom and baby goods, counseling, and baby classes Help Me Grow- Call 683-681-7198 Is the hub for a number of Community Health Worker organizations which provide home visits and support for families to improve the overall health and outcome of infants/children. Refers women to WIC as well. (https://www.helpmegrow.org/) [facility] Housing - Call 455-209-0441 Can assist with low-income housing resources Food Assistance [facility] Job and Family Services- Call Need to apply for food stamps (SNAP), noguera assistance (TANF), daycare voucher, Medicaid insurance, call or visit their website. (https://www.The New Motion /food-assistance) [facility] Job and Family Services Food Assisstance Food Assistance helps families stretch their food budgets to buy healthy food. The program is designed to increase nutritional levels and safeguard the health and well-being of [facility] residents. www.Guangdong Mingyang Electric Group.LetMeGo National Domestic Violence Hotline- Call National Sexual Assault Hotline- Call National Suicide Prevention Hotline- Call 574 or Transportation If you have Medicaid insurance, please call the toll-free number on the back of your insurance card or the number noted below. Explain to the technology sales representative that you are in need of transportation. All OB visits, ultrasound appointments, all doctor visits, WIC appointments, trips to the pharmacy to pick up worker medications, visits to the lab for blood work, and much more are covered. Call [phone]-EINF Childbirth Classes, Classes and Hospital Tours for [facility]: To register for in person classes, you can call or sign up online To register for classes by phone call: For [facility] Childbirth Education Department- [phone] For [facility] Childbirth Education Department- [phone] To register online: 1) go to Green Planet Architects, type in search box; ccf.org/babyclasses 2) select your hospital 3) select view all upcoming classes (in blue box) 4) and select your class For help or if you have questions call [employer] or [place] Education Department. documented in this encounter [facility] 06-09-2023 Note HNO ID: [id number] Author: Reginald Sung MD Service: ? Author [...] continue to improve (has follow up with film splicer this ) then we wait to start Humira after delivery. She is not planning on . see back 3 months. Reginald Sung MD [facility] 06-09-2023 History of Presen t illness [...] continue to improve (has follow up with film splicer this ) then we wait to start Humira after delivery. She is not planning on . see back 3 months. Reginald Sung MD documented in this encounter [facility] 06-04-2023 Miscellaneous Notes 2nd risk assessment form submitted 06/04/23 Katty Saldaña RN documented in this encounter [facility] 06-03-2023 Miscellaneous Notes Anatomy ultrasound reviewed. No abnormalities identified. Follow up as clinically indicated. Please place copy in ob chart. Drew Kramer MD documented in this encounter [facility] 06-03-2023 Miscellaneous Notes RR- VB No. LOF [...] use other than 1 PPD tob Drew Nia, M.D. documented in this encounter [facility] 06-03-2023 Instructions Rosey Cotter Ma - 06/03/2023 8:47 AM EDT SEQUENTIAL SCREENINGS The [facility] offers sequential screenings for women who are [...] It will require an appointment with our piano technician. This is not an ultrasound performed [...] the above symptoms, contact our office at [phone] and ask to speak with a nurse. After hours, you can call doctors registry at [phone] OR call [facility] at [phone] and ask to have the doctor cardiac rehabilitation specialist paged. If you consider this an emergency, dial 9-1-7 or go to your nearest emergency department. NEED HELP? Are you dealing with a violent or abusive relationship? Are you a victim of rape or sexual assult? Call [facility] ([place]) 24 hour Crisis Hotline: 943.585.8144 or 193-248-8397. MANUAL Your Guide to a Healthy manual is now on-line. Visit [facility].org/HealthyPregn ancyGuide to download your free copy documented in this encounter [facility] 04-16-2023 Instructions Rosey Cotter Ma - 04/16/2023 1:25 PM EDT SEQUENTIAL SCREENINGS The [facility] offers sequential screenings for women who are [...] It will require an appointment with our piano technician. This is not an ultrasound performed [...] the above symptoms, contact our office at [phone] and ask to speak with a nurse. After hours, you can call doctors registry at [phone] OR call [facility] at [phone] and ask to have the doctor cardiac rehabilitation specialist paged. If you consider this an emergency, dial 9-1-2 or go to your nearest emergency department. NEED HELP? Are you dealing with a violent or abusive relationship? Are you a victim of rape or sexual assult? Call [facility] [place] ([facility] 24 hour Crisis Hotline: 884.535.6086 or 039-512-4529. MANUAL Your Guide to a Healthy manual is now on-line. Visit [facility].org/HealthyPregn ancyGuide to download your free copy documented in this encounter [facility] 03-24-2023 Instructions Reanna Boothe LPN - 03/24/2023 [...] at any [facility] lab. Please report to the any addictions counselor assistant office commercial front load operator for the Sequential Part 2 requisition and [...] medicine office, for east side please call [phone] or for the West side call [phone] and ask for the the nurse. Thank you. documented in this encounter [facility] 03-24-2023 Miscellaneous Notes Patient here for First Trimester Screening. See ultrasound report for details. Options for genetic screening and diagnosis discussed with the patient. Patient opts for first trimester screening and the sequential screening protocol. Limitations of screening tests discussed with the patient. Vesna Huang APRN.LAYNEM Please sign order. Reanna Boothe LPN' documented in this encounter [facility] 03-20-2023 Note HNO ID: [id number] Author: Pricilla Abad MD Service: ? Author Type: Physician Type: Progress Notes Filed: 03/20/2023 1:11 PM Note Text: OB point of care ultrasound was performed. See imaging tab for details. Pricilla Mcbride MD [facility] 03-20-2023 History of Presen t illness Narrative OB point of care ultrasound was performed. See imaging tab for details. Pricilla Mcbride MD documented in this encounter [facility] 03-19-2023 Note HNO ID: [id number] Author: Alda Seo MSW Service: ? Author Type: Tool Mechanic Type: Progress Notes Filed: 03/20/2023 8:18 AM Note Text: Sw met with patient,patient mother, and patient boyfriend. Sw discussed local housing assistance agencies. [employer], and [employer] Patient mother reports that patient has voucher from [employer] for $600 to help get started with deposit to find apt. Patient states I am tired and we have been sleeping on the street. Can we talk some other time. Sw noted that she would be brief. Discussed requesting from [place] [employer] landvalor healthd list for rental options. Patient mom notes that she will help patient reach out to [facility] and see about landlord listing. Discussed also Community Action programs for help with transportation. Discussed with patient also that [employer] has transportation assistance to medical appts. Patient mom notes that she will help patient call [facility] to request new medical card. Patient is aware that she can then [facility] with [facility] for transportation to medical appts. Patient mother notes that she has stayed at [employer] in the past and is not allowed to go back there. Discussed [employer] and patient mom notes that patient had [...] I am tired and ready to leave. [facility] 03-19-2023 Note HNO ID: [id number] Author: Marcelle Albarran APRN.JENNIFER Service: ? Author Type: Nurse Practitioner Type: Progress Notes Filed: 03/19/2023 4:13 PM Note Text: Sawyer Helper offered: Patient declines. Accompanied by mother and [...] use: No Multivitamin with Folic acid: Yes Yarsani or heritage: No Would refuse blood transfusion [...] harming myself has occurred to me. Never [place] Depression Scale Total 7 Feeling nervous, anxious [...] by mouth. choleca (more content not included)... [facility] 03-19-2023 History of Presen t illness Narrative Sw met with patient,patient mother, and patient boyfriend. Sw discussed local housing assistance agencies. [employer], and [employer]. Patient mother reports that patient has voucher from [employer] for $600 to help get started with deposit to find apt. Patient states I am tired and we have been sleeping on the street. Can we talk some other time. Sw noted that she would be brief. Discussed requesting from [place] [employer] landSlingjot list for rental options. Patient mom notes that she will help patient reach out to [facility] and see about landlord listing. Discussed also Community Action programs for help with transportation. Discussed with patient also that [employer] has transportation assistance to medical appts. Patient mom notes that she will help patient call [employer] to request new medical card. Patient is aware that she can then check with [employer] for transportation to medical appts. Patient mother notes that she has stayed at [employer] in the past and is not allowed to go back there. Discussed SWEE[employer]O and patient mom notes that patient had [...] ready to leave. documented in this encounter [facility] 03-19-2023 History of Presen t illness Narrative Sawyer Helper offered: Patient declines. Accompanied by mother and [...] use: No Multivitamin with Folic acid: Yes Yarsani or heritage: No Would refuse blood transfusion [...] harming myself has occurred to me. Never [place] Depression Scale Total 7 Feeling nervous, anxious [...] Your guide to a health and the Latex Ribbon Machine Operator. Discussed aneuploidy and carrier screening. Regarding aneuploidy [...] 4 weeks or sooner prn. Marcelle Albarran APRN.FLASK CLEANER documented in this encounter [facility] 03-19-2023 Instructions Mary Aly MA - 03/19/2023 11:04 AM EDT Please select the following link to access the [facility] Your Guide to a Healthy . www.Ccf.org/healthypregnancyguid e documented in this encounter [facility] 08-12-2022 History of Presen t illness Narrative [...] 2022 11:44 AM documented in this encounter [facility] 08-12-2022 History of Presen t illness Narrative xref: Corinne Vu MD [address] [facility] [address] I have been asked to see Harley Mcpherson for Ankylosing Spondylitis by Corinne Vu MD [address] [facility] [address] HPI: Diagnosing of ankylosing spondylitis. Several episodes [...] electronic medical record documented in this encounter [facility] Diagnosis Iritis Unspecified iridocyclitis Blood test positive for human leukocyte antigen (HLA) B27 [facility] Diagnosis with uncertain viability, single or unspecified fetus- Primary 12 weeks gestation of state, incidental Tachycardia Tachycardia, unspecified Tobacco use disorder History of substance use Positive depression screening Other abnormal clinical finding [facility] Diagnosis with uncertain viability, single or unspecified fetus- Primary documented [facility] encounter [facility]* Diagnosis Encounter for screening for nuchal translucency- Primary 13 weeks gestation of state, incidental documented [facility] encounter [facility]* Diagnosis Supervision of high risk in first trimester [O09.91]- Primary Unspecified high-risk 12 weeks gestation of state, incidental Nuchal translucency of fetus on ultrasound [Z36.82] Abnormal findings on screening documented [facility] this encounter [facility]* Diagnosis 16 weeks gestation of - Primary state, incidental Supervision of other high risk pregnancies, second trimester Encounter for screening of mother Unspecified screening Need for influenza vaccination Need for prophylactic vaccination and inoculation against influenza documented in this encounter [facility] note* Diagnosis Supervision of other high risk pregnancies, second trimester- Primary 23 weeks gestation of state, incidental [facility] Diagnosis Encounter for anatomic survey- Primary 23 weeks gestation of state, incidental [facility] Diagnosis Iritis of left eye- Primary [facility] Diagnosis 27 weeks gestation of - Primary state, incidental Supervision of other high risk pregnancies, second trimester Need for vaccination Need for prophylactic vaccination and inoculation against unspecified single disease [facility] Diagnosis Supervision of other high risk , antepartum- Primary 29 weeks gestation of state, incidental Homelessness Lack of housing [facility] Diagnosis Supervision of other high risk , antepartum- Primary 37 weeks gestation of state, incidental Tobacco use disorder History of substance use Positive depression screening Other abnormal clinical finding Poor social situation Unspecified psychosocial circumstance documented in this encounter [facility] note* Diagnosis Supervision of other high risk , antepartum- Primary 38 weeks gestation of state, incidental Knee abrasion, right, sequela documented in this encounter [facility] for referral (narrative)* Diagnostic Procedure Only (Routine) - Closed Specialty Diagnoses / Procedures Referred By Jamie torres Referred To Contact XR IMAGING Diagnoses Iritis Blood test positive for human leukocyte antigen (HLA) B27 Procedures XR SACROILIAC JOINTS 2V AP PELVIS/FERGUESON RADIOLOGIC EXAMINATION SACROILIAC JNTS <3 [place] [address] [place] [address] Xr Imaging Referral ID Status Reason Start Date Expiration Date V isits Requested Visits Authorized [id number] Closed Auto-Generate d Referral 08/12/2022 09/11/2023 1 1 * Diagnostic Procedure Only (Routine) - Closed Specialty Diagnoses / Procedures Referred By Jamie torres Referred To Contact XR IMAGING Diagnoses Iritis Blood test positive for human leukocyte antigen (HLA) B27 Procedures XR LUMBAR GENERAL 3V AP/LAT/L5-S1 RADEX SPINE LUMBOSACRAL 2/3 [place] [address] [place] [address] Xr Imaging Referral ID Status Reason Start Date Expiration Date V isits Requested Visits Authorized [id number] Closed Auto-Generate d Referral 08/12/2022 09/11/2023 1 1 * Diagnostic Procedure Only (Routine) - Closed Specialty Diagnoses / Procedures Referred By Contac t Referred To Contact XR IMAGING Diagnoses Iritis Blood test positive for human leukocyte antigen (HLA) B27 Procedures XR THORACIC LIMITED 2V AP/LAT RADEX SPINE THORACIC 2 [place] [address] [place] [address] Xr Imaging Referral ID Status Reason Start Date Expiration Date V isits Requested Visits Authorized [id number] Closed Auto-Generate d Referral 08/12/2022 09/11/2023 1 1 [facility] for referral (narrative)* Diagnostic Procedure Only (Routine) - Closed Specialty Diagnoses / Procedures Referred By Contac t Referred To Contact XR IMAGING Diagnoses Iritis Blood test positive for human leukocyte antigen (HLA) B27 Procedures XR SACROILIAC JOINTS 2V AP PELVIS/FERGUESON RADIOLOGIC EXAMINATION SACROILIAC JNTS <3 [place] [address] [place] [address] Xr Imaging Referral ID Status Reason Start Date Expiration Date V isits Requested Visits Authorized [id number] Closed Auto-Generate d Referral 08/12/2022 09/11/2023 1 1 * Diagnostic Procedure Only (Routine) - Closed Specialty Diagnoses / Procedures Referred By Contac t Referred To Contact XR IMAGING Diagnoses Iritis Blood test positive for human leukocyte antigen (HLA) B27 Procedures XR LUMBAR GENERAL 3V AP/LAT/L5-S1 RADEX SPINE LUMBOSACRAL 2/3 [place] [address] [place] [address] Xr Imaging Referral ID Status Reason Start Date Expiration Date V isits Requested Visits Authorized [id number] Closed Auto-Generate d Referral 08/12/2022 09/11/2023 1 1 * Diagnostic Procedure Only (Routine) - Closed Specialty Diagnoses / Procedures Referred By Contac t Referred To Contact XR IMAGING Diagnoses Iritis Blood test positive for human leukocyte antigen (HLA) B27 Procedures XR THORACIC LIMITED 2V AP/LAT RADEX SPINE THORACIC 2 [place] [address] [place] [id number] Xr Imaging Referral ID Status Reason Start Date Expiration Date V isits Requested Visits Authorized [id number] Closed Auto-Generate d Referral 08/12/2022 09/11/2023 1 1 [facility] for referral (narrative)* Diagnostic Procedure Only (Routine) - Pending Review Specialty Diagnoses / Procedures Referred By Contac t Referred To Contact [facility] Diagnoses with uncertain viability, single or unspecified fetus Procedures OBSTETRIC ULTRASOUND WHI US PREG UTERUS AFTER 1ST TRIMEST GESTATION Marcelle Albarran APRN.CNP [address] [place] [address] [address] Referral ID Status Reason Start Date Expiration Date Visits Requested Visits Authorized [id number] Pending Review Auto-Generat ed Referral 03/19/2023 03/18/2024 1 1 * Diagnostic Procedure Only (Routine) - Authorized Specialty Diagnoses / Procedures Referred By Contac t Referred To Contact [facility] Diagnoses 12 weeks gestation of Procedures NUCHAL TRANSLUCENCY WHI US NUCHAL TRANSLUCENCY 1ST GESTATION Marcelle Albarran APRN.CNP [address] [place] [address] [place] [address] Referral ID Status Reason Start Date Expiration Date Visits Requested Visits Authorized [id number] Authorized Auto-Generat ed Referral 03/19/2023 03/18/2024 1 1 * Consult, Test, Treat (Routine) - Authorized Specialty Diagnoses / Procedures Referred By Contac t Referred To Contact Diagnoses Tachycardia Procedures CONSULT TO MATERNAL MEDI OFFICE/OUTPATIENT NEW HIGH MDM 60-74 MINUTES Marcelle Albarran APRN.CNP [address] [place] [address] Referral ID Status Reason Start Date Expiration Date Visits Requested Visits Authorized [id number] Authorized PCP Requested Referral Auto-Generate d Referral 03/19/2023 03/18/2024 1 1 [facility] for referral (narrative)* Diagnostic Procedure Only (Routine) - Authorized Specialty Diagnoses / Procedures Referred By Contac t Referred To Contact [facility] Diagnoses Supervision of other high risk , antepartum Procedures OBSTETRIC ULTRASOUND WHI US PREG UTERUS AFTER 1ST TRIMEST GESTATION Anastacia Means APRN.CNP [address] [place] [address] [facility] [address] [place] [address] Referral ID Status Reason Start Date Expiration Date Visits Requested Visits Authorized [id number] Authorized Auto-Generat ed Referral 07/16/2024 5 1 [facility] Health Concerns Problem Noted Date Diagnosed Date [facility] - [facility] 03/19/2023 [facility] - [place] 03/19/2023 Problem Noted Date Diagnosed Date [facility] - [facility] 03/19/2023 [place] - [place] 03/19/2023 Problem Noted Date Diagnosed Date [facility] - [facility] 03/19/2023 Education - [place] 03/19/2023 Problem Noted Date Diagnosed Date [facility] - [facility] 03/19/2023 Education - [place] 03/19/2023 Problem Noted Date Diagnosed Date [facility] - [facility] 03/19/2023 Education - [place] 03/19/2023 Problem Noted Date Diagnosed Date [facility] - [facility] 03/19/2023 Education - [place] 03/19/2023 Problem Noted Date Diagnosed Date [facility] - [facility] 03/19/2023 Education - [place] 03/19/2023 Problem Noted Date Diagnosed Date [facility] - [facility] 03/19/2023 Education - [place] 03/19/2023 Problem Noted Date Diagnosed Date [facility] - [facility] 03/19/2023 Education - [place] 03/19/2023 Problem Noted Date Diagnosed Date [facility] - [facility] 03/19/2023 Education - [place] 03/19/2023 Problem Noted Date Diagnosed Date [facility] - [facility] 03/19/2023 Education - [place] 03/19/2023 Problem Noted Date Diagnosed Date [facility] - [facility] 03/19/2023 Education - [place] 03/19/2023 Problem Noted Date Diagnosed Date [facility] - [facility] 03/19/2023 Education - [place] 03/19/2023 Reason for Referral Specialty Diagnoses / Procedures Referred By Jamie torres Referred To Contact Orthopedics Diagnoses Knee abrasion, right, sequela Procedures CONSULT TO ORTHOPAEDICS OFFICE/OUTPATIENT [facility] 60 MINUTES Drew Kramer MD [address] [place] [address] Referral ID Status Reason Start Date Expiration Date Visits Requested Visits Authorized [id number] Authorized PCP Requested Referral 09/17/2023 09/16/2024 1 1 Summary Purpose Family History No Family History [...] or prosecute any alcohol or drug abuse patient.[facility] the event this information is protected by the Federal Confidentiality of Alcohol and Drug Abuse Patient Records regulations: The Federal rules restrict any use of the information to criminally investigate or prosecute any alcohol or drug abuse patient.[facility] the event this information is protected by the Federal Confidentiality of Alcohol and Drug Abuse Patient Records regulations: The Federal rules restrict any use of the information to criminally investigate or prosecute any alcohol or drug abuse patient.[facility] the event this information is protected by the Federal Confidentiality of Alcohol and Drug Abuse Patient Records regulations: The Federal rules restrict any use of the information to criminally investigate or prosecute any alcohol or drug abuse patient.[facility] the event this information is protected by the Federal Confidentiality of Alcohol and Drug Abuse Patient Records regulations: The Federal rules restrict any use of the information to criminally investigate or prosecute any alcohol or drug abuse patient.[facility] the event this information is protected by the Federal Confidentiality of Alcohol and Drug Abuse Patient Records regulations: The Federal rules restrict any use of the information to criminally investigate or prosecute any alcohol or drug abuse patient.[facility] the event this information is protected by the Federal Confidentiality of Alcohol and Drug Abuse Patient Records regulations: The Federal rules restrict any use of the information to criminally investigate or prosecute any alcohol or drug abuse patient.[facility] the event this information is protected by the Federal Confidentiality of Alcohol and Drug Abuse Patient Records regulations: The Federal rules restrict any use of the information to criminally investigate or prosecute any alcohol or drug abuse patient.[facility] the event this information is protected by the Federal Confidentiality of Alcohol and Drug Abuse Patient Records regulations: The Federal rules restrict any use of the information to criminally investigate or prosecute any alcohol or drug abuse patient.[facility] the event this information is protected by the Federal Confidentiality of Alcohol and Drug Abuse Patient Records regulations: The Federal rules restrict any use of the information to criminally investigate or prosecute any alcohol or drug abuse patient.[facility] the event this information is protected by the Federal Confidentiality of Alcohol and Drug Abuse Patient Records regulations: The Federal rules restrict any use of the information to criminally investigate or prosecute any alcohol or drug abuse patient.[facility] the event this information is protected by the Federal Confidentiality of Alcohol and Drug Abuse Patient Records regulations: The Federal rules restrict any use of the information to criminally investigate or prosecute any alcohol or drug abuse patient.[facility] the event this information is protected by the Federal Confidentiality of Alcohol and Drug Abuse Patient Records regulations: The Federal rules restrict any use of the information to criminally investigate or prosecute any alcohol or drug abuse patient.[facility] the event this information is protected by the Federal Confidentiality of Alcohol and Drug Abuse Patient Records regulations: The Federal rules restrict any use of the information to criminally investigate or prosecute any alcohol or drug abuse patient.[facility] Hospital[facility] the event this information is protected by the Federal Confidentiality of Alcohol and Drug Abuse Patient Records regulations: The Federal rules restrict any use of the information to criminally investigate or prosecute any alcohol or drug abuse patient.[facility] Hospital[facility] the event this information is protected by the Federal Confidentiality of Alcohol and Drug Abuse Patient Records regulations: The Federal rules restrict any use of the information to criminally investigate or prosecute any alcohol or drug abuse patient.[facility] Hospital[facility] the event this information is protected by the Federal Confidentiality of Alcohol and Drug Abuse Patient Records regulations: The Federal rules restrict any use of the information to criminally investigate or prosecute any alcohol or drug abuse patient.[facility] Care Teams (unrecognized sec tion and content) Service Order Dispatcher Chief Relationship Specialty Start Date End Date Indy Nix NP [address] [place] [address] PCP - General Family Medicine 08/12/22 Service Order Dispatcher Chief Relationship Specialty Start Date End Date Indy Nix NP PCP - General Family Medicine 08/12/22 Service Order Dispatcher Chief Relationship Specialty Start Date End Date Indy Nix NP PCP - General Family Medicine 08/12/22 Service Order Dispatcher Chief Relationship Specialty Start Date End Date Indy Nix NP PCP - General Family Medicine 08/12/22 Service Order Dispatcher Chief Relationship Specialty Start Date End Date Indy Nix NP PCP - General Family Medicine 08/12/22 Service Order Dispatcher Chief Relationship Specialty Start Date End Date Indy Nix NP PCP - General Family Medicine 08/12/22 Service Order Dispatcher Chief Relationship Specialty Start Date End Date Indy Nix NP PCP - General Family Medicine 08/12/22 Service Order Dispatcher Chief Relationship Specialty Start Date End Date Indy Nix NP PCP - General Family Medicine 08/12/22 Corinne Vu [address] [place] [address] Referring Ophthalmology 06/03/23 Service Order Dispatcher Chief Relationship Specialty Start Date End Date Indy Nix NP PCP - General Family Medicine 08/12/22 Corinne Vu [address] [place] [address] Referring Ophthalmology 06/03/23 Service Order Dispatcher Chief Relationship Specialty Start Date End Date Indy Nix NP PCP - General Family Medicine 08/12/22 Corinne Vu [address] [place] [address] Referring Ophthalmology 06/03/23 Service Order Dispatcher Chief Relationship Specialty Start Date End Date Indy Nix NP PCP - General Family Medicine 08/12/22 Corinne Vu [address] [place] [address] Referring Ophthalmology 06/03/23 Service Order Dispatcher Chief Relationship Specialty Start Date End Date Indy Nix NP PCP - General Family Medicine 08/12/22 Corinne Vu [address] [place] [address] Referring Ophthalmology 06/03/23 Service Order Dispatcher Chief Relationship Specialty Start Date End Date Indy Nix NP PCP - General Family Medicine 08/12/22 Corinne Vu [address] [place] [address] Referring Ophthalmology 06/03/23 Service Order Dispatcher Chief Relationship Specialty Start Date End Date Indy Nix NP PCP - General Family Medicine 08/12/22 Corinne Vu [address] [place] [address] Referring Ophthalmology 06/03/23 Service Order Dispatcher Chief Relationship Specialty Start Date End Date Indy Nix NP PCP - General Family Medicine 08/12/22 Corinne Vu [address] [place] [address] Referring Ophthalmology 06/03/23 Reason for Visit (unrecogniz ed section and content) Specialty Diagnoses / Procedures Referred By Edwigeac t Referred To Contact XR IMAGING Diagnoses Iritis Blood test positive for human leukocyte antigen (HLA) B27 Procedures XR SACROILIAC JOINTS 2V AP PELVIS/FERGUESON RADIOLOGIC EXAMINATION SACROILIAC JNTS <3 [place] [address] [place] [address] Xr Imaging Referral ID Status Reason Start Date Expiration Date V isits Requested Visits Authorized [id number] Closed Auto-Generate d Referral 08/12/2022 09/11/2023 1 1 Reason Comments Initial OB Visit Reason Comments Orders Reason Comments US Specialty Diagnoses / Procedures Referred By Jamie t Referred To Contact [facility] Diagnoses 12 weeks gestation of Procedures NUCHAL TRANSLUCENCY WHI US NUCHAL TRANSLUCENCY 1ST GESTATION Albarran, Marcelle, PRINTING MACHINIST.FLASK CLEANER [address] [place] [address] [facility] [address] [place] [address] Referral ID Status Reason Start Date Expiration Date V isits Requested Visits Authorized [id number] Closed Auto-Generate d Referral 03/19/2023 03/18/2024 1 1 Reason Onset Date Comments Care 04/16/2023 Immunizations 04/16/2023 Flu vaccination Reason Onset Date Comments Care 06/03/2023 Specialty Diagnoses / Procedures Referred By Contac t Referred To Contact [facility] Diagnoses with uncertain viability, single or unspecified fetus Procedures OBSTETRIC ULTRASOUND WHI US PREG UTERUS AFTER 1ST TRIMEST GESTATION Marcelle Albarran, PRINTING MACHINIST.FLASK CLEANER [address] [place] [address] [facility] [address] [place] [address] Referral ID Status Reason Start Date Expiration Date V isits Requested Visits Authorized [id number] Closed Auto-Generate d Referral 03/19/2023 03/18/2024 1 1 Reason Comments PRAF Reason Onset Date Comments Care 06/30/2023 Reason Onset Date Comments Care 07/17/2023 Reason Onset Date Comments Care 09/10/2023 Reason Onset Date Comments Population Health Navigation Outreach 09/15/2023 Ob/peds Reason Onset Date Comments Care 09/17/2023 INFORMATION SOURCE (unrecogn ized section and content) [...] BE BASED ON THE PRIMARY CLINICAL RECORDS. [facility]. provides no warranty or guarantee of the accuracy or completeness of information in this document.
[2023-09-30] MEDS: Oxytocin 15 Units/NS 250ml 15 UNITS/250 ML IV.SOLN 2 UNITS IV (08:20)
[2023-09-30 08:59] LABS: Absolute Lymphocyte Count 2.76 X10^3/uL (0.83-4.51); Absolute Neutrophil Count 12.5 X10^3/uL (2.0-7.7); Basophil# 0.18 X10^3/uL; Eosinophil# 0.17 X10^3/uL; Hemoglobin 10.2 g/dL (12.0-15.0); Lymphocyte # 2.76 X10^3/ul (0.83-4.51); Lymphocyte % 15.5 % (19-41); Mean Corp Hgb Conc 30.9 g/dL (32-36); Mean Corpuscular Hgb 25.2 pg (27.0-32.0); Mean Corpuscular Volume 81.7 fL (81-99); Mean Platelet Vol. 12.9 fl (6.2-12.0); Monocyte# 1.46 X10^3/uL; Monocyte% 8.2 % (0-10); NRBC Flagged by Analyzer 0.2 % (0-5); Neutrophil # 12.54 X10^3/uL (2.7-7.7); Neutrophil % 70.6 % (47-70); Platelet Count 263 K/mm3 (150-450); RBC Distribution Width CV 17.1 % (11.6-14.6); RBC Distribution Width SD 51.2 fl (35.1-43.9); Red Blood Count 4.04 M/mm3 (4.2-5.4); White Blood Count 17.8 K/mm3 (4.4-11.0)
[2023-09-30] MEDS: Lactated Ringers 1,000 ML 50 ML IV (09:14)
[2023-09-30] MEDS: Penicillin G Pot 5,000,000 UNITS in 0.9% Normal Saline (100mL MB+) 100 ML 150 UNITS IV (09:35)
[2023-09-30 09:51] LABS: Syphilis Antibodies Non-reactive
[2023-09-30] MEDS: LACTATED RINGERS 500 ML 999 ML IV (11:02)
[2023-09-30] MEDS: fentaNYL-bupivacaine (epidural) 100 ML BAG EPIDURAL ×4 (11:31→20:51)
[2023-09-30] MEDS: CHLORHEXIDINE GLUC 2% CLOTH 1 EACH TOWELETTE TOPICAL (12:02)
--- NOTE | 2023-09-30 13:22 | PCM.HP.OB ---
HPI - General General Date of Admission: 09/30/23 Date of Service: 09/30/23 HPI Narrative HARLEY LARA, is a 28 F who presents for induction of labor. Maternal Data Information Final DUNG: 09/26/23 Gestational age: 39&4 PFSH PFSH Medical History Diarrhea Influenza A Nicotine dependence Obesity Tachycardia Home Medications vit no.95-ferrous fumarate 28 mg-folic acid 800 mcg tablet () 1 tab PO DAILY 08/03/23 [History Last Taken 08/01/23 09:00 1 TAB] Allergy/AdvReac Type Severity Reaction Status Date / Time sulfamethoxazole Allergy Hives Verified 09/30/23 11:10 [From Bactrim] trimethoprim [From Bactrim] Allergy Hives Verified 09/30/23 11:10 Family History Grandmother CAD (coronary artery disease) Aunt CAD (coronary artery disease) Aunt CAD (coronary artery disease) Other Cancer Diabetes Social History household members: none Smoking Status: Current every day smoker tobacco type: cigarettes Tobacco: How many years used: 5 alcohol intake: never History Elective abortions Hx Para 1 Spontaneous abortions Hx # Term Pregnancies Ectopic pregnancies Hx # Pregnancies Multiple births # of living children NST FHR Rate Baby A Baseline: 130 Variability:: Moderate Accelerations:: 15 x 15 Decelerations:: None Uterine Activity:: Irregular Vital Signs Vital Signs Vital Signs: 09/30/23 07:45 09/30/23 07:45 09/30/23 07:45 Temperature Temperature Source Oral Pulse Rate 90 Blood Pressure 140/70 H BP Systolic 140 BP Diastolic 70 Pulse Ox 09/30/23 07:45 09/30/23 09:11 09/30/23 09:11 Temperature 98.1 F Temperature Source Pulse Rate 100 Blood Pressure 136/90 H BP Systolic 136 BP Diastolic 90 Pulse Ox 09/30/23 10:19 09/30/23 10:19 09/30/23 10:21 Temperature Temperature Source Pulse Rate 109 H 115 H Blood Pressure 125/77 H BP Systolic 125 BP Diastolic 77 Pulse Ox 09/30/23 10:21 09/30/23 11:24 09/30/23 11:24 Temperature Temperature Source Pulse Rate 109 H Blood Pressure BP Systolic BP Diastolic Pulse Ox 100 100 09/30/23 11:28 09/30/23 11:28 09/30/23 11:29 Temperature Temperature Source Pulse Rate 97 101 H Blood Pressure 142/100 H BP Systolic 142 BP Diastolic 100 Pulse Ox 09/30/23 11:29 09/30/23 11:35 09/30/23 11:35 Temperature Temperature Source Pulse Rate 87 Blood Pressure 149/89 H BP Systolic 149 BP Diastolic 89 Pulse Ox 100 09/30/23 11:34 09/30/23 11:35 09/30/23 11:35 Temperature Temperature Source Pulse Rate 100 Blood Pressure BP Systolic BP Diastolic Pulse Ox 100 93 09/30/23 11:39 09/30/23 11:39 09/30/23 11:39 Temperature Temperature Source Pulse Rate 93 94 Blood Pressure 143/91 H BP Systolic 143 BP Diastolic 91 Pulse Ox 09/30/23 11:39 09/30/23 11:44 09/30/23 11:44 Temperature Temperature Source Pulse Rate 100 Blood Pressure 141/83 H BP Systolic 141 BP Diastolic 83 Pulse Ox 100 09/30/23 11:44 09/30/23 11:48 09/30/23 11:48 Temperature Temperature Source Pulse Rate 98 Blood Pressure 142/86 H BP Systolic 142 BP Diastolic 86 Pulse Ox 99 09/30/23 11:55 09/30/23 11:55 09/30/23 12:00 Temperature Temperature Source Pulse Rate 105 H Blood Pressure 114/79 154/99 H BP Systolic 114 154 BP Diastolic 79 99 Pulse Ox 09/30/23 12:00 09/30/23 12:04 09/30/23 12:04 Temperature Temperature Source Pulse Rate 100 102 H Blood Pressure 166/93 H BP Systolic 166 BP Diastolic 93 Pulse Ox 09/30/23 12:09 09/30/23 12:09 09/30/23 12:09 Temperature Temperature Source Temporal Pulse Rate 95 Blood Pressure 120/65 BP Systolic 120 BP Diastolic 65 Pulse Ox 09/30/23 12:09 Temperature 98.0 F Temperature Source Pulse Rate Blood Pressure BP Systolic BP Diastolic Pulse Ox Weight Weight: 189 lb Body Mass Index (BMI) 33.5 Physical Exam Const alert and oriented x3 GI soft to palpation, non-tender and non-distended Inspection: gravid external exam normal Narrative: /-2, AROM clear fluid Extremity no calf tenderness Labs Labs Labs: Blood Type A POSITIVE Antibody Screen NEGATIVE Hct 33.0 % (37-47) L Hgb 10.2 g/dL (12.0-15.0) L Syphilis Total Ab Non-reactive Rubella IgG Antibody 98.9 IU/mL Hep Bs Antigen Non-Reactive (Nonreactive) Hepatitis C Antibody Non-Reactive (Nonreactive) Glucose 1 Hr 50 gm 90 mg/dL (70-140) Group B Strep DNA Negative (Negative) Rhogam given: No Assessment & Plan (1) Group beta Strep positive: COMMENT: @ 39&4 (2) with 39 completed weeks gestation: (3) History of drug use disorder: PLAN: Plan Admit to L&D Induction - on pitocin & s/p AROM GBS positive - pcn per protocol EFW - less than 4500g & patient with adequate pelvis Pain - epidural Routine care
[2023-09-30] MEDS: Penicillin G 3,000,000 Units 50 ML 100 UNITS IV ×3 (13:27→21:36)
--- NOTE | 2023-09-30 17:52 | NURSING ---
in the room and has medicated the pt with Fentanyl 100mcg diluted with 10cc of NS, he also has moved the epidural line out a little.
[2023-09-30] MEDS: Lactated Ringers 1,000 ML 200 ML IV (20:43)
[2023-09-30] MEDS: Ondansetron 4 MG/2 ML Vial IV (21:29)
[2023-09-30] MEDS: Acetaminophen 500 MG Tablet PO (21:33)
--- NOTE | 2023-09-30 23:23 | EX.PCM.OBRPT ---
Maternal Data Information Final DUNG: 09/26/23 Gestational age: 39&4 Vaginal Delivery Maternal Presentation Maternal Presentation: Medically Indicated Induction Type of Induction: Pitocin and Amniotomy Operative Information Date of Procedure: 09/30/23 Pre-Operative Diagnosis: (1) History drug abuse (2) Obesity Post-Operative Diagnosis: Same Surgery / Procedure Performed: Spontaneous Vaginal Delivery Type of Anesthesia: Epidural Drain: Rodrigues to straight drain Estimated Blood Loss: 200ml Findings Description of Procedure: Patient prepped & draped when C/C/+1. She pushed well to deliver the head. head gently guided to allow delivery of anterior and posterior shoulders. No excess traction placed on head. Body delivered and 3VC clamped & cut in delayed fashion. Placenta delivered with gentle traction and good uterine tone obtained. Presentation: LACY Amniotic Membrane Rupture Type: Artificial Amniotic Fluid Description: Clear Placental Delivery Description: Expressed Placenta Disposition: [facility] Specimen(s) Removed: Placenta Cord Vessel Description: 3 Vessels Cord Entanglement: Around neck x 1, loose Nuchal Cord Compression: With compression A Gender: Male (1 minute): 8 (5 minute): 9 Delayed Cord Clamping: Yes Post Vaginal Delivery Medications Given After Delivery: IV Pitocin Episiotomy Description: None Laceration: None Complication Complications: None
[2023-09-30] MEDS: Oxytocin 15 Units/NS 250ml 15 UNITS/250 ML IV.SOLN 83 UNITS IV (23:45)
[2023-10-01] VITALS (15 sets, daily range): BP systolic 124–140; BP diastolic 59–91; PULSE 99–123; RESP 16; TEMP 36.7–37; O2SAT 98–99
--- NOTE | 2023-10-01 05:05 | NURSING ---
pt states she fell 3 weeks ago and landed on her right arm and it broke, she has been wearing a cast for 3 weeks. she took it off herself before coming into the hospital. her wrist appears swollen and is tender for her to use, she has decreased range of motion.
--- NOTE | 2023-10-01 08:54 | PN.OBGYN_ITS ---
Subjective Subjective pain well controlled, average lochia Objective Data Objective Data Vital Signs: Vital Signs Temp Pulse Resp BP Pulse Ox O2 Del Method 98.2 F 99 16 133/82 H 98 Room Air 10/01/23 07:40 10/01/23 07:40 10/01/23 07:40 10/01/23 07:40 10/01/23 07:40 10/01/23 07:40 Oxygen Delivery Method Room Air Weight: 85.729 kg Body Mass Index (BMI) 33.5 Intake & Output: Intake and Output for Last 24 Hours 09/29/23 09/30/23 10/01/23 23:59 23:59 23:59 Intake Total 2614.89 / 2614.89 268 / 268 Output Total 900 / 900 1000 / 1000 Balance 1714.89 / 1714.89 -732 / -732 Lab / Micro Data 09/30/23 08:05 Labs: Laboratory Results - last 24 hr 09/30/23 08:05: WBC 17.8 H, RBC 4.04 L, Hgb 10.2 L, Hct 33.0 L, MCV 81.7, MCH 25.2 L, MCHC 30.9 L, RDW Std Deviation 51.2 H, RDW Coeff of Shauna 17.1 H, Plt Cou nt 263, MPV 12.9 H, Immature Gran % (Auto) 3.700 H, Neut % (Auto) 70.6 H, Lymph % (Auto) 15.5 L, Benton % (Auto) 8.2, Eos % (Auto) 1.0, Baso % (Auto) 1.0, Absolute Neuts (auto) 12.5 H, Absolute Lymphs (auto) 2.76, Nucleated RBC % 0.2, Syphilis Total Ab Non-reactive, Blood Type A POSITIVE, Antibody Screen NEGATIVE Physical Exam Const alert and no apparent distress Narrative: Fundus firm, below umbilicus. Assessment & Plan (1) (spontaneous vaginal delivery): PLAN: PPD#1 in [facility], respiratory issues routine care for patient. Declined urine tox screen, screen on pending
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
[2023-10-02 02:00] VITALS: BP 110/74; PULSE 82; RESP 14; TEMP 36.7; O2SAT 97
--- NOTE | 2023-10-02 08:36 | PCM.DC.SUM ---
Providers Date of Admission: 09/30/23 Primary Care Physician: Indy Nix NP-C Reason For Visit: VAG Diagnosis Discharge Diagnosis (1) (spontaneous vaginal delivery): Status: Acute Code(s): O80 - Encounter for full-term uncomplicated delivery (2) History of drug use disorder: Status: Acute Code(s): F19.91 - Other psychoactive substance use, unspecified, in remission (3) Nicotine dependence: Status: Chronic Code(s): F17.200 - Nicotine dependence, unspecified, uncomplicated Medications at Discharge Home Medications vit no.95-ferrous fumarate 28 mg-folic acid 800 mcg tablet () 1 tab PO DAILY 08/03/23 Hospital Course Operations None Procedures None Summary of Care Provided Minutes Spent on Discharge: 15 Hospital Course: Patient had . Hospital course was uneventful. Physical Exam Const alert and no apparent distress General Appearance: cooperative and comfortable Exam Limitations: no limitations HEENT normocephalic Eyes General Eye: normal appearance of both eyes Neck full ROM General: normal visual inspection Chest Chest: symmetrical chest wall rise Resp normal respiratory effort and normal air movement Effort and Inspection: symmetric chest movement Auscultation: clear to auscultation bilaterally Cardio regular rate and regular rhythm GI normal to inspection, nondistended, normoactive bowel sounds Back/Spine normal ROM Extremity full ROM and no calf tenderness General Extremity: normal exam except as noted Skin no rashes or lesions noted Neuro CN's II-XII intact bilaterally Psych mental status grossly normal Weight / BMI Weight Weight: 189 lb Body Mass Index (BMI) 33.5 ABG / Lab / Microbiology Data 09/30/23 08:05 D/C Instructions Discharge Diet: No restrictions May resume sexual activity in: 6-8 weeks Weight Bearing Status: Weight bearing as tolerated Call your doctor if you observe: Fever of 101 or Higher, Inability to urinate, Using more than 1 pad per hour, Shortness of breath, Chest pain, Calf discomfort and Uncontrolled pain When: 2 weeks virtual visit/ 6 weeks in office Meaningful Use Info Meaningful Use Diagnoses (Choose all that apply): None applicable Discharge Plan Admission Admit Date/Time: 09/30/23 06:55 Primary Reason for Your Visit: Labor and Delivery Attending Provider: Ty Funez Primary Care Provider: Indy Nix NP Discharge Orders/Prescriptions Prescriptions: No Action PNV cmb#95-ferrous fumarate-FA [] 28 mg iron- 800 mcg tablet 1 tab PO DAILY Referrals / Follow Up: Vesna Charles CNM [Med Staff - [facility]] - Indy Nix EQUAL OPPORTUNITY OFFICER, EQUAL OPPORTUNITY OFFICER-C [Primary Care Provider] - Disposition Disposition (needs filled in before D/C Order can be placed): Home, Self Care
[2023-10-02 10:00] VITALS: BP 120/85; PULSE 108; RESP 16; TEMP 36.2; O2SAT 99
[2023-10-02 14:30] VITALS: BP 122/72; PULSE 100; RESP 16; TEMP 36.2
== END 2023-10-02 16:00 | disposition home or self-care (01) | DRG 560 ==
PROVIDERS: Admitting Provider Obstetrics & Gynecology; PCP Nurse Practitioner Family; Visit Provider Obstetrics & Gynecology
DX: O99.824 Streptococcus B carrier state complicating childbirth (principal); Z37.0 Single live birth; F17.210 Nicotine dependence, cigarettes, uncomplicated; O99.214 Obesity complicating childbirth; O99.324 Drug use complicating childbirth; O99.334 Smoking (tobacco) complicating childbirth; O69.81X0 Labor and delivery complicated by cord around neck, without compression, not applicable or unspecified; F19.91 Other psychoactive substance use, unspecified, in remission; Z3A.39 39 weeks gestation of pregnancy
CPT/HCPCS: 59025; 59050; 85025; 86780; 86850; 86900; 86901; 99221; J7120; G0378; J2405; J3490